=== PATIENT | male | born 1970 | race Two or more races ===

== ENCOUNTER 2017-03-23 02:21 | Emergency (ER) | payer MEDICAID ==
[~2017-03-23] VITALS: Ht 177.8 cm; Wt 63.5 kg
[~2017-03-23 02:21] MED LIST: SIMV-8 PO
[2017-03-23 03:14] VITALS: BP 119/48
[2017-06-08] MEDS ORDERED: NIC21P TOP (12:14)
[2017-06-08] MEDS ORDERED: INSLANTI SC (12:14)
[2017-06-08] MEDS ORDERED: ENOX80IN SC (12:14)
[2017-06-08] MEDS ORDERED: SIMV-13 PO (12:14)
[2017-06-08] MEDS ORDERED: HYDR2TAB58 PO (12:14)
[2017-06-08] MEDS ORDERED: CALC0.25 PO (12:14)
[2017-06-08] MEDS ORDERED: GABA-339 PO (12:14)
[2017-06-08] MEDS ORDERED: PROM25TA5 PO (12:14)
[2017-06-08] MEDS ORDERED: PANT40T PO (12:14)
[2017-06-08] MEDS ORDERED: FOLI1TAB6 PO (12:14)
[2017-06-08] MEDS ORDERED: GLIP-115 PO (12:14)
[2017-06-08] MEDS ORDERED: LORA1TAB12 PO (12:14)
[2017-06-08] MEDS ORDERED: INSLISPI SC (12:14)
[2017-06-08] MEDS ORDERED: POTA20TA53 PO (12:14)
[2017-06-08] MEDS ORDERED: MAGN400T5 PO (12:19)
[2017-06-08] MEDS ORDERED: VENL150C58 PO (12:19)
[2017-06-08] MEDS ORDERED: PANC3600 PO (12:19)
[2017-06-08] MEDS ORDERED: CALCCHW PO (12:19)
[2017-06-08] MEDS ORDERED: CLON1TAB3 PO (12:19)
== END 2017-03-23 07:52 | disposition left against medical advice (07) ==
LOC: ER 02:23
DX: R10.9 Unspecified abdominal pain (principal); Z53.21 Procedure and treatment not carried out due to patient leaving prior to being seen by health care provider
CPT/HCPCS: 74176

== ENCOUNTER 2017-07-23 07:58 | Emergency (ER) | payer MEDICAID ==
[~2017-07-23] VITALS: Ht 177.8 cm; Wt 70.3 kg
[~2017-07-23 07:58] MED LIST changes: +CALC0.25 PO; +CALCCHW PO; +CLON1TAB3 PO; +ENOX80IN SC; +FOLI1TAB6 PO; +GABA-339 PO; +GLIP-115 PO; +HYDR2TAB58 PO; +INSLANTI SC; +INSLISPI SC; +LORA1TAB12 PO; +MAGN400T5 PO; +NIC21P TOP; +PANC3600 PO; +PANT40T PO; +POTA20TA53 PO; +PROM25TA5 PO; +SIMV-13 PO; +VENL150C58 PO
[2017-07-23 08:42] LABS: Basophils # (auto) 0.1 uL; Basophils % (auto) 1.1 % (0.0-2.0); Eosinophils # (auto) 0.5 uL; Eosinophils % (auto) 5.3 % (0.0-7.0); Hemoglobin 12.9 g/dL (13.5-17.5); Lymphocytes # (auto) 2.2 uL; Lymphocytes % (auto) 24.8 % (10.0-50.0); Mean Corpuscular Hemoglobin 32.7 pg (28.0-32.0); Mean Corpuscular Volume 96.3 fL (80.0-100.0); Monocytes # (auto) 0.3 uL; Monocytes % (auto) 3.3 % (0.0-12.0); Neutrophils # (auto) 5.9 uL; Neutrophils % (auto) 65.5 % (37.0-80.0); Nucleated Red Blood Cells % 0.2 %; Platelet Count (auto) 189 10^3/uL (140-450); Red Blood Cells 3.95 10^6/uL (4.5-5.90); Red Cell Distribution Width 15.4 % (11.8-14.3)
[2017-07-23 10:19] LABS: Albumin 3.8 g/dL (3.4-5.0); BUN/Creatinine Ratio 27.6; Bilirubin, Total 0.4 mg/dL (0.2-1.0); Potassium 4.2 mmol/L (3.5-5.1); Total Protein 7.9 g/dL (6.4-8.2)
[2017-07-23] MEDS ORDERED: LORazepam 0.5 MG TAB PO ONE (10:30)
[2017-07-23 11:56] VITALS: BP 112/70
== END 2017-07-23 12:15 | disposition home or self-care (01) ==
LOC: ER 07:58 → EDBD 07:58 → ER 12:15
DX: R10.9 Unspecified abdominal pain (principal); F41.9 Anxiety disorder, unspecified; E11.9 Type 2 diabetes mellitus without complications; E78.5 Hyperlipidemia, unspecified; Z48.01 Encounter for change or removal of surgical wound dressing
CPT/HCPCS: 36415; 74018; 74176; 80053; 82150; 83690; 85025

== ENCOUNTER 2017-10-18 17:07 | Observation (INO) | payer MEDICAID ==
[~2017-10-18] VITALS: Ht 177.8 cm; Wt 74.4 kg
[~2017-10-18 17:07] MED LIST changes: -CLON1TAB3 PO; +CLON1TAB4 PO
[2017-10-18 18:23] LABS: Basophils # (auto) 0.1 uL; Basophils % (auto) 0.9 % (0.0-2.0); Eosinophils # (auto) 0.4 uL; Eosinophils % (auto) 5.5 % (0.0-7.0); Hematocrit 31.6 % (41.0-53.0); Hemoglobin 10.8 g/dL (13.5-17.5); Lymphocytes # (auto) 2.4 uL; Lymphocytes % (auto) 30.8 % (10.0-50.0); Mean Corpuscular Hemoglobin 30.5 pg (28.0-32.0); Mean Corpuscular Hgb Conc. 34.1 g/dL (32.0-36.0); Mean Corpuscular Volume 89.5 fL (80.0-100.0); Monocytes # (auto) 0.4 uL; Monocytes % (auto) 5.5 % (0.0-12.0); Neutrophils # (auto) 4.5 uL; Neutrophils % (auto) 57.3 % (37.0-80.0); Nucleated Red Blood Cells % 0.2 %; Platelet Count (auto) 196 10^3/uL (140-450); Red Blood Cells 3.54 10^6/uL (4.5-5.90); Red Cell Distribution Width 14.5 % (11.8-14.3); White Blood Cell 7.9 10^3/uL (4.4-10.8)
[2017-10-18 18:39] LABS: Albumin 3.4 g/dL (3.4-5.0); BUN/Creatinine Ratio 21.2; Calcium 8.7 mg/dL (8.5-10.1); Potassium 4.1 mmol/L (3.5-5.1)
[2017-10-18 18:42] LABS: Bilirubin, Total 0.4 mg/dL (0.2-1.0); Total Protein 7.1 g/dL (6.4-8.2)
[2017-10-18 19:56] LABS: Urine WBC None Seen /hpf (0 - 3)
[2017-10-18 20:17] LABS: Urine Bacteria NONE SEEN /hpf (None Seen); Urine Blood Negative /uL (Negative); Urine Mucus FEW (None Seen); Urine Specific Gravity 1.016 (1.001-1.035)
[2017-10-18] MEDS ORDERED: SODIUM CHLORIDE 0.9% 1,000 ML IV ONE (20:30)
[2017-10-18] MEDS ORDERED: PANTOPRAZOLE 40 MG/10 ML VIAL IV ONE (20:30)
[2017-10-18] MEDS ORDERED: clonazePAM 0.5 MG TAB PO ONE (20:30)
[2017-10-18 20:58] LABS: INR 1.02 (0.9-1.15); Partial Thromboplastin Time 33.1 sec (23.78-33.04); Prothrombin Time 10.9 sec (9.27-12.13)
[2017-10-18 21:11] LABS: Amylase 24 U/L (25-115); Lipase 42 U/L (73-393)
[2017-10-18 22:12] VITALS: BP 121/75
[2017-10-18 22:53] LABS: Alcohol, Urine < 3.0 mg/dL (0-5); Amphetamine Screen, Urine NEGATIVE (NEGATIVE); Barbiturate Scree,Urine NEGATIVE (NEGATIVE); Benzodiazephine Screen, Urine NEGATIVE (NEGATIVE); Cannabinoid Screen, Urine NEGATIVE (NEGATIVE); Cocaine Screen, Urine NEGATIVE (NEGATIVE); Opiate Scree,Urine NEGATIVE (NEGATIVE); Phencyclidine Screen, Urine NEGATIVE (NEGATIVE)
== END 2017-10-19 00:04 | disposition left against medical advice (07) | DRG 54 ==
LOC: ER 17:18 → OVERFLOW 17:19 → ER 10-19 00:04
PROVIDERS: ADMIT Emergency Medicine; ATTEND Emergency Medicine
DX: G43.A1 Cyclical vomiting, in migraine, intractable (principal); E11.9 Type 2 diabetes mellitus without complications; K29.00 Acute gastritis without bleeding; G89.29 Other chronic pain; N18.9 Chronic kidney disease, unspecified; M54.9 Dorsalgia, unspecified; Z93.3 Colostomy status; F41.9 Anxiety disorder, unspecified; Z79.899 Other long term (current) drug therapy
CPT/HCPCS: 36415; 74176; 80053; 80307; 80320; 81001; 82150; 83690; 85025; 85610; 85730; 93005; 96361; 96374; 99285; C9113; G0378; J7030

== ENCOUNTER 2018-01-01 14:38 | Observation (INO) | payer MEDICAID ==
[~2018-01-01] VITALS: Ht 177.8 cm; Wt 72.6 kg
[2018-01-01 15:23] LABS: Basophils # (auto) 0.1 uL; Basophils % (auto) 0.5 % (0.0-2.0); Eosinophils # (auto) 0.1 uL; Eosinophils % (auto) 1.1 % (0.0-7.0); Hematocrit 38.9 % (41.0-53.0); Lymphocytes # (auto) 3.1 uL; Lymphocytes % (auto) 26.1 % (10.0-50.0); Mean Corpuscular Hgb Conc. 33.4 g/dL (32.0-36.0); Mean Corpuscular Volume 89.8 fL (80.0-100.0); Monocytes # (auto) 0.5 uL; Monocytes % (auto) 4.3 % (0.0-12.0); Neutrophils # (auto) 8.1 uL; Platelet Count (auto) 318 10^3/uL (140-450); Red Blood Cells 4.33 10^6/uL (4.5-5.90); Red Cell Distribution Width 13.7 % (11.8-14.3)
[2018-01-01 15:37] LABS: Alanine Aminotransferase 21 U/L (16-61); Albumin 3.7 g/dL (3.4-5.0); Amylase 23 U/L (25-115); Anion Gap 4 (5-15); Aspartate Aminotransferase 26 U/L (15-37); BUN/Creatinine Ratio 14.4; Blood Urea Nitrogen 27 mg/dL (7-18); Calcium 9.6 mg/dL (8.5-10.1); Carbon Dioxide 28 mmol/L (21-32); Chloride 100 mmol/L (98-107); GFR African American 50 mL/min; GFR Non-African American 41 mL/min; Glucose 234 mg/dL (74-106); Lipase 61 U/L (73-393); Magnesium 2.2 mg/dL (1.6-2.6); Potassium 4.9 mmol/L (3.5-5.1); Sodium 132 mmol/L (136-145)
[2018-01-01 15:42] LABS: Alkaline Phosphatase 539 U/L (45-117); Bilirubin, Total 0.3 mg/dL (0.2-1.0); Total Protein 8.8 g/dL (6.4-8.2)
[2018-01-01] MEDS ORDERED: SODIUM CHLORIDE 0.9% 1,000 ML IV SCH (16:54)
[2018-01-01] MEDS ORDERED: NITROGLYCERIN 0.4 MG SL TAB SL PRN (17:00)
[2018-01-01] MEDS ORDERED: InsuLIN REG 1unit/0.01ml Soln (100units/ml) SC SCH (17:00)
[2018-01-01] MEDS ORDERED: PANTOPRAZOLE 40 MG/10 ML VIAL IV ONE (17:00)
[2018-01-01] MEDS ORDERED: cefTRIAXone 1GM/50ML D5W 50 ML IV ONE (17:00)
[2018-01-01] MEDS ORDERED: MORPHINE SULFATE 4 MG/ML SYR/VIAL IV PRN ×3 (17:00)
[2018-01-01] MEDS ORDERED: MAGNESIUM HYDROXIDE PO PRN (17:00)
[2018-01-01] MEDS ORDERED: TEMAZEPAM 15 MG CAP PO PRN (17:00)
[2018-01-01] MEDS ORDERED: ONDANSETRON HCL 4 MG/2 ML VIAL IV PRN (17:00)
[2018-01-01] MEDS ORDERED: CALCIUM CARBONATE PO PRN (17:00)
[2018-01-01] MEDS ORDERED: DEXTROSE (50%) 50ML SYRG IV PRN (17:00)
[2018-01-01] MEDS ORDERED: ACCU-CHEK COMFORT CURVE STRIP VI SCH (17:00)
[2018-01-01] MEDS ORDERED: clonazePAM 0.5 MG TAB PO SCH (17:29)
[2018-01-01 17:38] VITALS: BP 107/78
[2018-01-01] MEDS ORDERED: metroNIDAZOLE 500MG/100ML 100 ML IV SCH (18:00)
[2018-01-01] MEDS ORDERED: glipiZIDE 5 MG TAB PO SCH (18:00)
[2018-01-01] MEDS ORDERED: ATORVASTATIN 20 MG TAB PO SCH (22:00)
[2018-01-01] MEDS ORDERED: GABAPENTIN 300 MG CAP PO SCH (22:00)
[2018-01-02] MEDS ORDERED: cefTRIAXone 1GM/50ML D5W 50 ML IV SCH (09:00)
[2018-01-02] MEDS ORDERED: FOLIC ACID 1 MG TAB PO SCH (10:00)
[2018-01-02] MEDS ORDERED: PANTOPRAZOLE 40 MG TAB PO SCH (10:00)
[2018-01-02] MEDS ORDERED: PANCRELIPASE PO SCH (10:00)
[2018-01-02] MEDS ORDERED: VENLAFAXINE HCL 37.5mg XR cap PO SCH (10:00)
[2018-01-02] MEDS ORDERED: CALCITRIOL 0.25 MCG CAP PO SCH (10:00)
== END 2018-01-01 18:43 | disposition home or self-care (01) | DRG 251 ==
LOC: ER 14:38 → OVERFLOW 14:39 → ER 18:32
PROVIDERS: ADMIT Family Medicine; ATTEND Family Medicine
DX: R10.9 Unspecified abdominal pain (principal); E11.22 Type 2 diabetes mellitus with diabetic chronic kidney disease; I95.9 Hypotension, unspecified; K80.20 Calculus of gallbladder without cholecystitis without obstruction; N18.9 Chronic kidney disease, unspecified; E78.5 Hyperlipidemia, unspecified; E87.1 Hypo-osmolality and hyponatremia; F17.210 Nicotine dependence, cigarettes, uncomplicated
CPT/HCPCS: 36415; 71045; 74176; 80053; 82150; 83036; 83605; 83690; 83735; 84484; 85025; 85045; 87040; 99285; G0378

== ENCOUNTER 2018-03-14 14:46 | Emergency (ER) | payer MEDICAID ==
[~2018-03-14] VITALS: Ht 177.8 cm; Wt 72.6 kg
[2018-03-14 15:54] LABS: Basophils # (auto) 0.1 uL; Basophils % (auto) 0.9 % (0.0-2.0); Eosinophils # (auto) 0.1 uL; Eosinophils % (auto) 1.3 % (0.0-7.0); Hematocrit 36.1 % (41.0-53.0); Hemoglobin 12.1 g/dL (13.5-17.5); Lymphocytes # (auto) 3.2 uL; Lymphocytes % (auto) 37.8 % (10.0-50.0); Mean Corpuscular Hemoglobin 30.7 pg (28.0-32.0); Mean Corpuscular Hgb Conc. 33.6 g/dL (32.0-36.0); Mean Corpuscular Volume 91.5 fL (80.0-100.0); Monocytes # (auto) 0.3 uL; Neutrophils # (auto) 4.7 uL; Nucleated Red Blood Cells % 0.1 %; Platelet Count (auto) 209 10^3/uL (140-450); Red Blood Cells 3.95 10^6/uL (4.5-5.90); Red Cell Distribution Width 13.4 % (11.8-14.3); White Blood Cell 8.5 10^3/uL (4.4-10.8)
[2018-03-14 16:10] LABS: Albumin 3.8 g/dL (3.4-5.0); BUN/Creatinine Ratio 10.8; Calcium 8.5 mg/dL (8.5-10.1); Magnesium 1.2 mg/dL (1.6-2.6); Potassium 4.6 mmol/L (3.5-5.1)
[2018-03-14 16:13] LABS: Bilirubin, Total 0.5 mg/dL (0.2-1.0); Total Protein 7.8 g/dL (6.4-8.2)
[2018-03-14] MEDS ORDERED: OXYCODONE W/ ACETAMINOPHEN 5/325MG TABLET PO ONE (16:45)
[2018-03-14] MEDS: MAGNESIUM SULFATE 1GM/100ML 100 ML IV SCH ×2 (17:04→17:51)
[2018-03-14 17:17] VITALS: BP 104/67
== END 2018-03-14 18:03 | disposition home or self-care (01) ==
LOC: ER 14:48
DX: E83.42 Hypomagnesemia (principal); E11.22 Type 2 diabetes mellitus with diabetic chronic kidney disease; N18.9 Chronic kidney disease, unspecified; E78.5 Hyperlipidemia, unspecified; F17.210 Nicotine dependence, cigarettes, uncomplicated; Z79.4 Long term (current) use of insulin
CPT/HCPCS: 36415; 80053; 82962; 83735; 85025; 93005; 94761; 96365; 99284; J3475

== ENCOUNTER 2018-03-18 18:03 | Emergency (ER) | payer MEDICAID ==
[~2018-03-18] VITALS: Ht 177.8 cm; Wt 72.6 kg
[2018-03-18 18:52] LABS: Basophils # (auto) 0.1 uL; Basophils % (auto) 0.7 % (0.0-2.0); Eosinophils # (auto) 0.1 uL; Eosinophils % (auto) 1.4 % (0.0-7.0); Hematocrit 36.8 % (41.0-53.0); Hemoglobin 12.4 g/dL (13.5-17.5); Lymphocytes # (auto) 4.6 uL; Mean Corpuscular Hemoglobin 30.7 pg (28.0-32.0); Mean Corpuscular Hgb Conc. 33.7 g/dL (32.0-36.0); Mean Corpuscular Volume 90.9 fL (80.0-100.0); Monocytes # (auto) 0.4 uL; Monocytes % (auto) 3.8 % (0.0-12.0); Neutrophils # (auto) 4.8 uL; Neutrophils % (auto) 48.1 % (37.0-80.0); Nucleated Red Blood Cells % 0.1 %; Platelet Count (auto) 222 10^3/uL (140-450); Red Blood Cells 4.04 10^6/uL (4.5-5.90); Red Cell Distribution Width 13.7 % (11.8-14.3)
[2018-03-18 19:06] LABS: Albumin 3.8 g/dL (3.4-5.0); Potassium 4.3 mmol/L (3.5-5.1)
[2018-03-18 19:08] LABS: Bilirubin, Total 0.5 mg/dL (0.2-1.0); Total Protein 8.1 g/dL (6.4-8.2)
[2018-03-18 20:25] LABS: INR 1.06 (0.9-1.15)
[2018-03-19 00:06] VITALS: BP 99/60
== END 2018-03-19 00:28 | disposition home or self-care (01) ==
LOC: ER 18:10
DX: E87.5 Hyperkalemia (principal); N17.9 Acute kidney failure, unspecified; E11.22 Type 2 diabetes mellitus with diabetic chronic kidney disease; E11.65 Type 2 diabetes mellitus with hyperglycemia; N18.9 Chronic kidney disease, unspecified; E78.5 Hyperlipidemia, unspecified; F17.210 Nicotine dependence, cigarettes, uncomplicated; Z79.4 Long term (current) use of insulin; Z79.899 Other long term (current) drug therapy
CPT/HCPCS: 36415; 71045; 80053; 83880; 84484; 85025; 85379; 85610; 85730; 93005

== ENCOUNTER 2018-06-11 03:17 | Inpatient (IN) | payer MEDICAID ==
[~2018-06-11] VITALS: Ht 177.8 cm; Wt 69.4 kg
[2018-06-11] VITALS (11 sets, daily range): BP systolic 94–125; BP diastolic 48–69
[~2018-06-11 03:17] MED LIST changes: -CALCCHW PO; +CHOL20007 PO; +DIPH2.5T73 PO; -ENOX80IN SC; +FER325T PO; -FOLI1TAB6 PO; -GLIP-115 PO; -HYDR2TAB58 PO; +LOPE2CAP PO; -LORA1TAB12 PO; +MID10T PO; -NIC21P TOP; +OCTR100I PO; -PANT40T PO; -POTA20TA53 PO; -PROM25TA5 PO; -SIMV-13 PO; -SIMV-8 PO; -VENL150C58 PO
[2018-06-11] MEDS ORDERED: DEXTROSE (50%) 50ML SYRG IV ONE (03:45)
[2018-06-11 07:37] LABS: Basophils # (auto) 0.1 uL; Eosinophils # (auto) 0.2 uL; Eosinophils % (auto) 3.2 % (0.0-7.0); Hematocrit 34.1 % (41.0-53.0); Hemoglobin 11.2 g/dL (13.5-17.5); Lymphocytes # (auto) 1.3 uL; Lymphocytes % (auto) 19.6 % (10.0-50.0); Mean Corpuscular Hemoglobin 30.5 pg (28.0-32.0); Mean Corpuscular Volume 92.5 fL (80.0-100.0); Monocytes # (auto) 0.3 uL; Monocytes % (auto) 3.9 % (0.0-12.0); Neutrophils # (auto) 4.8 uL; Neutrophils % (auto) 72.3 % (37.0-80.0); Nucleated Red Blood Cells % 0.1 %; Platelet Count (auto) 214 10^3/uL (140-450); Red Blood Cells 3.68 10^6/uL (4.5-5.90); Red Cell Distribution Width 17.1 % (11.8-14.3); White Blood Cell 6.6 10^3/uL (4.4-10.8)
[2018-06-11 07:51] LABS: INR 1.02 (0.9-1.15); Partial Thromboplastin Time 31.5 sec (23.78-33.04); Prothrombin Time 10.9 sec (9.27-12.13)
[2018-06-11 07:59] LABS: Urine Amorphous Crystal FEW /hpf (None Seen); Urine Bacteria NONE SEEN /hpf (None Seen); Urine Blood Negative /uL (Negative); Urine Specific Gravity 1.019 (1.001-1.035); Urine WBC 1 /hpf (0 - 3)
[2018-06-11 08:02] LABS: Albumin 2.9 g/dL (3.4-5.0); Amylase 19 U/L (25-115); Anion Gap 5 (5-15); Calcium 9.1 mg/dL (8.5-10.1); Carbon Dioxide 30 mmol/L (21-32); Chloride 99 mmol/L (98-107); Glucose 233 mg/dL (74-106); Lipase 29 U/L (73-393); Magnesium 2.1 mg/dL (1.6-2.6); Sodium 134 mmol/L (136-145)
[2018-06-11 08:09] LABS: Alanine Aminotransferase 17 U/L (16-61); Alkaline Phosphatase 296 U/L (45-117); Aspartate Aminotransferase 44 U/L (15-37); BUN/Creatinine Ratio 12.3; Bilirubin, Total 1.2 mg/dL (0.2-1.0); Blood Urea Nitrogen 28 mg/dL (7-18); GFR African American 40 mL/min; GFR Non-African American 33 mL/min; Total Protein 7.4 g/dL (6.4-8.2)
[2018-06-11 08:18] LABS: Potassium 6.2 mmol/L (3.5-5.1)
[2018-06-11] MEDS ORDERED: GASTROGRAFIN 120 ML SOL ONE (08:25)
[2018-06-11] MEDS ORDERED: FUROSEMIDE 20 MG/2 ML VIAL IV ONE (10:30)
[2018-06-11] MEDS ORDERED: ALBUTEROL SULF 2.5 MG/0.5ML(0.5%) NEB SOLN NEB ONE (10:30)
[2018-06-11] MEDS ORDERED: CALCIUM CHL 100MG/ML 1,000 MG in D5W 5% 100 ML IV ONE (10:30)
[2018-06-11] MEDS ORDERED: SODIUM BICARBONATE 8.4 % INJ 50ML VIAL IV ONE (10:30)
[2018-06-11] MEDS ORDERED: HYDROmorphone HCL 2 MG/ML VL IV ONE (12:00)
[2018-06-11] MEDS ORDERED: PROMETHAZINE HCL 25 MG/ML 1ML IV ONE (12:00)
[2018-06-11] MEDS ORDERED: SODIUM CHLORIDE 0.9% 3,000 ML IV ONE ×2 (12:30→14:30)
[2018-06-11 13:20] LABS: Potassium 4.4 mmol/L (3.5-5.1)
[2018-06-11] MEDS ORDERED: DOPamine 1600MCG/ML D5W 250 ML IV ONE (13:23)
[2018-06-11 13:24] LABS: BUN/Creatinine Ratio 11.1
[2018-06-11] MEDS ORDERED: SODIUM CHLORIDE 0.9% 1,000 ML IV ONE ×2 (13:30→17:30)
[2018-06-11] MEDS: DOPamine 1600MCG/ML D5W 250 ML IV SCH (13:32)
[2018-06-11] MEDS ORDERED: ceFAZolin 1GM/50ML 50 ML IV ONE (13:57)
[2018-06-11] MEDS ORDERED: DEXTROSE (50%) 50ML SYRG IV PRN (14:00)
[2018-06-11] MEDS ORDERED: NITROGLYCERIN 0.4 MG SL TAB SL PRN (14:00)
[2018-06-11] MEDS ORDERED: SOD CHL 0.45% 1,000 ML IV SCH ×3 (14:00→18:30)
[2018-06-11] MEDS ORDERED: PANTOPRAZOLE 40 MG/10 ML VIAL IV ONE (14:00)
[2018-06-11] MEDS ORDERED: MORPHINE SULF INJ 2 MG/ML SYRINGE 1ML IV PRN (14:00)
[2018-06-11] MEDS ORDERED: NOREPINEPHRINE 8 MG/250ML KIT 250 ML IV SCH (14:27)
[2018-06-11] MEDS ORDERED: DOPamine 1600MCG/ML D5W 250 ML IV SCH (14:30)
[2018-06-11] MEDS: MIDODRINE HCL 10 MG TAB PO SCH ×2 (14:53→22:15)
[2018-06-11 15:34] LABS: Lactic Acid w/Reflex 2.3 mmol/L (0.4-2.0)
[2018-06-11] MEDS: SODIUM CHLORIDE 0.9% 1,000 ML IV SCH (16:55)
[2018-06-11] MEDS: NAFCILLIN SOD 2GM 12 GM in SODIUM CHLORIDE 0.9% 1,000 ML IV SCH (17:09)
[2018-06-11] MEDS: ACCU-CHEK COMFORT CURVE STRIP VI SCH ×2 (17:15→22:14)
[2018-06-11] MEDS: InsuLIN REG 1unit/0.01ml Soln (100units/ml) SC SCH ×2 (17:19→22:15)
--- NOTE | 2018-06-11 18:45 | NUR ---
PT RECEIVED FROM ER VIA POOJA. VITAL SIGNS WITHIN NORMAL LIMITS AT THIS TIME, SEE INTERVENTIONS FOR INITIAL ASSESSMENT. PT A/Ox4. WILL CONTINUE TO MONITOR PT.
--- NOTE | 2018-06-11 19:43 | NUR ---
REPORT GIVEN TO SENIOR STRATEGY ANALYST RN GLADIS, ENDORSED CARE OF PT.
--- NOTE | 2018-06-11 19:45 | NUR ---
REPORT RECEIVED, ASSUMED CARE.
[2018-06-12] VITALS (48 sets, daily range): BP systolic 81–162; BP diastolic 40–88
[2018-06-12] MEDS: HYDROmorphone HCL 2 MG/ML VL IV PRN ×5 (01:33→20:02)
--- NOTE | 2018-06-12 01:34 | NUR ---
PT ILEOSTOMY BAG LEAKED IN BED. Patient bathe/linen change Patient given complete bath. Skin integrity assessed for any changes. Linens changed. Patient repositioned for comfort.
[2018-06-12] MEDS: SODIUM CHLORIDE 0.9% 1,000 ML IV SCH (02:54)
--- NOTE | 2018-06-12 04:45 | NUR ---
PT C/O N/V, PAGED HOSPITALIST.
[2018-06-12 05:20] LABS: Basophils # (auto) 0 uL; Basophils % (auto) 0.7 % (0.0-2.0); Eosinophils # (auto) 0.1 uL; Eosinophils % (auto) 2.2 % (0.0-7.0); Hematocrit 32.2 % (41.0-53.0); Hemoglobin 10.9 g/dL (13.5-17.5); Lymphocytes # (auto) 1.8 uL; Lymphocytes % (auto) 27.4 % (10.0-50.0); Mean Corpuscular Hemoglobin 31.2 pg (28.0-32.0); Mean Corpuscular Hgb Conc. 33.8 g/dL (32.0-36.0); Mean Corpuscular Volume 92.3 fL (80.0-100.0); Monocytes # (auto) 0.3 uL; Monocytes % (auto) 3.9 % (0.0-12.0); Neutrophils # (auto) 4.4 uL; Neutrophils % (auto) 65.8 % (37.0-80.0); Platelet Count (auto) 192 10^3/uL (140-450); Red Blood Cells 3.49 10^6/uL (4.5-5.90); Red Cell Distribution Width 16.9 % (11.8-14.3); White Blood Cell 6.6 10^3/uL (4.4-10.8)
[2018-06-12] MEDS: ACCU-CHEK COMFORT CURVE STRIP VI SCH ×4 (05:21→22:00)
--- NOTE | 2018-06-12 05:22 | NUR ---
ACCU CHECK MACHINES NOT WORKING WILL TAKE BLOOD SUGAR FROM AM [facility].
[2018-06-12 05:38] LABS: Calcium 9.8 mg/dL (8.5-10.1); Potassium 4.6 mmol/L (3.5-5.1)
[2018-06-12 05:41] LABS: Albumin 2.9 g/dL (3.4-5.0); BUN/Creatinine Ratio 12.4
[2018-06-12 05:44] LABS: Bilirubin, Total 1.1 mg/dL (0.2-1.0); Total Protein 7.4 g/dL (6.4-8.2)
--- NOTE | 2018-06-12 05:44 | NUR ---
CALLBACK HOSPITALIST: OBTAINED NEW ORDERS.
[2018-06-12] MEDS ORDERED: ACETAMINOPHEN 325 MG TAB PO PRN (05:45)
[2018-06-12] MEDS ORDERED: ONDANSETRON HCL 4 MG/2 ML VIAL IV PRN (05:45)
[2018-06-12] MEDS: MIDODRINE HCL 10 MG TAB PO SCH ×3 (06:00→22:18)
[2018-06-12] MEDS: InsuLIN REG 1unit/0.01ml Soln (100units/ml) SC SCH ×4 (06:15→22:00)
--- NOTE | 2018-06-12 06:18 | NUR ---
MD GERONIMO HERE, NOTIFIED ME HE CAN'T SEE PT DUE TO INSURANCE AND CONSULT PAPER SHEETER CHELLE. Addendum: 06/12/18 at 0622 by Ponce Ramos RN WRONG PT
--- NOTE | 2018-06-12 06:35 | NUR ---
CALLED [facility], GAVE UPDATE ON AND REQUESTED FROM PT TO BRING XTRA CHANGE OF CLOTHING, ILEOSTOMY BAG AND SUPPLIES AND TAKE SOILED CLOTHING HOME.
--- NOTE | 2018-06-12 07:20 | NUR ---
OPEN. REPORT RECEIVED FROM COLOR STRIPPER RN GLADIS, ASSUMED CARE OF PT. VITAL SIGNS STABLE AT THIS TIME, SEE INTERVENTIONS FOR INITIAL ASSESSMENT. WILL CONTINUE TO MONITOR PT.
--- NOTE | 2018-06-12 08:00 | NUR ---
PT'S AT BEDSIDE. ALL QUESTIONS/CONCERNS ADDRESSED TO SATISFACTION.
[2018-06-12] MEDS ORDERED: NAFCILLIN SOD 2GM 12 GM in SODIUM CHLORIDE 0.9% 1,000 ML IV SCH (10:00)
[2018-06-12] MEDS ORDERED: PANCRELIPASE PO SCH ×2 (10:00→22:00)
[2018-06-12] MEDS ORDERED: PANTOPRAZOLE 40 MG/10 ML VIAL IV SCH (10:00)
[2018-06-12] MEDS ORDERED: SODIUM CHLORIDE 0.9% 1,000 ML IV ONE ×2 (10:15→11:00)
--- NOTE | 2018-06-12 10:38 | NUR ---
DR HUANG AT BEDSIDE, NEW ORDERS IN PLACE AT THIS TIME.
--- NOTE | 2018-06-12 11:14 | NUR ---
DR SMITH AT BEDSIDE, NEW ORDERS IN PLACE AT THIS TIME.
--- NOTE | 2018-06-12 11:16 | NUR ---
CALL RECEIVED FROM DR RODRÍGUEZ, PER MD, NO NEED FOR SURGICAL INTERVENTION AT THIS TIME.
--- NOTE | 2018-06-12 13:31 | NUR ---
NEW ORDERS IN PLACE FROM DR MALDONADO AT THIS TIME. TO REPLACE NS WITH LACTATED RINGERS, D/C DOPAMINE AND BEGIN LEVOPHED. LEVOPHED TO BE TITRATED TO MAINTAIN MAP > 90. LR STARTING RATE AT 150ML/HR UP TO 200ML/HR.
[2018-06-12] MEDS: NOREPINEPHRINE 8 MG/250ML KIT 250 ML IV SCH ×2 (13:32→18:52)
[2018-06-12] MEDS: LACTATED RINGER'S 1,000 ML IV SCH ×2 (14:00→20:25)
[2018-06-12] MEDS ORDERED: VENL150C58 PO (15:19)
[2018-06-12 18:49] LABS: Basophils # (auto) 0.1 uL; Basophils % (auto) 1.1 % (0.0-2.0); Eosinophils # (auto) 0.2 uL; Eosinophils % (auto) 3.6 % (0.0-7.0); Hematocrit 30.3 % (41.0-53.0); Lymphocytes # (auto) 1.7 uL; Mean Corpuscular Hemoglobin 30.5 pg (28.0-32.0); Mean Corpuscular Hgb Conc. 33.1 g/dL (32.0-36.0); Mean Corpuscular Volume 92.2 fL (80.0-100.0); Monocytes # (auto) 0.2 uL; Monocytes % (auto) 3.8 % (0.0-12.0); Neutrophils # (auto) 3.9 uL; Neutrophils % (auto) 63.5 % (37.0-80.0); Nucleated Red Blood Cells % 0.1 %; Platelet Count (auto) 169 10^3/uL (140-450); Red Blood Cells 3.28 10^6/uL (4.5-5.90); Red Cell Distribution Width 16.8 % (11.8-14.3); White Blood Cell 6.1 10^3/uL (4.4-10.8)
[2018-06-12 18:53] LABS: Albumin 2.6 g/dL (3.4-5.0); Bilirubin, Direct 0.3 mg/dL (0-0.2); Calcium 8.5 mg/dL (8.5-10.1); Potassium 4.5 mmol/L (3.5-5.1)
[2018-06-12] MEDS: PANCRELIPASE PO SCH (18:55)
[2018-06-12 18:56] LABS: BUN/Creatinine Ratio 11.5; Total Protein 6.5 g/dL (6.4-8.2)
[2018-06-12] MEDS: PANTOPRAZOLE 40 MG/10 ML VIAL IV SCH (22:06)
[2018-06-12] MEDS: NAFCILLIN SOD 2GM 12 GM in SODIUM CHLORIDE 0.9% 1,000 ML IV SCH (22:15)
[2018-06-13] VITALS (17 sets, daily range): BP systolic 91–154; BP diastolic 48–82
[2018-06-13] MEDS: HYDROmorphone HCL 2 MG/ML VL IV PRN ×3 (00:18→09:29)
[2018-06-13] MEDS: LACTATED RINGER'S 1,000 ML IV SCH (03:24)
[2018-06-13 04:19] LABS: Basophils # (auto) 0.1 uL; Basophils % (auto) 1.2 % (0.0-2.0); Eosinophils # (auto) 0.2 uL; Eosinophils % (auto) 3.4 % (0.0-7.0); Hematocrit 30.6 % (41.0-53.0); Hemoglobin 10.2 g/dL (13.5-17.5); Lymphocytes # (auto) 2.3 uL; Lymphocytes % (auto) 40.9 % (10.0-50.0); Mean Corpuscular Hemoglobin 30.6 pg (28.0-32.0); Mean Corpuscular Hgb Conc. 33.4 g/dL (32.0-36.0); Mean Corpuscular Volume 91.6 fL (80.0-100.0); Monocytes # (auto) 0.3 uL; Monocytes % (auto) 4.9 % (0.0-12.0); Neutrophils # (auto) 2.7 uL; Neutrophils % (auto) 49.6 % (37.0-80.0); Platelet Count (auto) 155 10^3/uL (140-450); Red Blood Cells 3.34 10^6/uL (4.5-5.90); Red Cell Distribution Width 17.2 % (11.8-14.3); White Blood Cell 5.5 10^3/uL (4.4-10.8)
[2018-06-13 04:40] LABS: Albumin 2.6 g/dL (3.4-5.0); Bilirubin, Direct 0.4 mg/dL (0-0.2); Calcium 8.6 mg/dL (8.5-10.1); Magnesium 1.2 mg/dL (1.6-2.6); Potassium 4.1 mmol/L (3.5-5.1)
[2018-06-13 04:43] LABS: BUN/Creatinine Ratio 12.8; Bilirubin, Total 1.2 mg/dL (0.2-1.0); Total Protein 6.3 g/dL (6.4-8.2)
[2018-06-13] MEDS: InsuLIN REG 1unit/0.01ml Soln (100units/ml) SC SCH (05:45)
[2018-06-13] MEDS: ACCU-CHEK COMFORT CURVE STRIP VI SCH (05:46)
[2018-06-13] MEDS: MIDODRINE HCL 10 MG TAB PO SCH (05:49)
--- NOTE | 2018-06-13 08:15 | NUR ---
OPENING NOTE Report received from Alexis, care has been endorsed. Initial assessment completed. Patient is in bed with at bedside. Patient vitals are stable and patient is A&Ox4. No complaints at this time. Will continue to monitor. Signed: 06/13/18 at 1124 by SN Isa <Co-Signature Required> Co-Signed: 06/13/18 at 1124 by Rhett Kellogg RN
--- NOTE | 2018-06-13 08:30 | NUR ---
PAGED; Dr. More paged regarding patient diet. Patient is requesting advancement of diet. Await return call.
[2018-06-13] MEDS: PANCRELIPASE PO SCH (09:28)
[2018-06-13] MEDS: PANTOPRAZOLE 40 MG/10 ML VIAL IV SCH (10:38)
--- NOTE | 2018-06-13 11:00 | NUR ---
MD FARRIS Patient would like to sign out Amaya BHATIA. Signed: 06/13/18 at 1103 by SN Isa <Co-Signature Required> Co-Signed: 06/13/18 at 1103 by Rhett Kellogg RN
--- NOTE | 2018-06-13 11:15 | NUR ---
AMA Note KELVIN CARRASCO states they want to leave the hospital Against Medical Advice (AMA). Patient encouraged to stay for further treatment/stabilization. Amaya Mckeon MD notified of patient's wishes. Patient advised of the risks and benefits of leaving AMA. Patient verbalized understanding. Patient encouraged to return to the ER if symptoms do not improve or worsen. Signed: 06/13/18 at 1125 by SN Isa <Co-Signature Required> Co-Signed: 06/13/18 at 1125 by Rhett Kellogg RN
== END 2018-06-13 11:45 | disposition left against medical advice (07) | DRG 193 ==
LOC: EDBD 03:17 → ER 03:22 → OVERFLOW 14:08 → ICU WEST 18:30
PROVIDERS: ADMIT Nurse Practitioner Acute Care; ATTEND Internal Medicine
DX: I33.0 Acute and subacute infective endocarditis (principal); I26.90 Septic pulmonary embolism without acute cor pulmonale; R57.1 Hypovolemic shock; K56.600 Partial intestinal obstruction, unspecified as to cause; N17.9 Acute kidney failure, unspecified; E44.0 Moderate protein-calorie malnutrition; E87.5 Hyperkalemia; E11.65 Type 2 diabetes mellitus with hyperglycemia; E11.21 Type 2 diabetes mellitus with diabetic nephropathy; D64.9 Anemia, unspecified; K86.1 Other chronic pancreatitis; E78.5 Hyperlipidemia, unspecified; Z53.21 Procedure and treatment not carried out due to patient leaving prior to being seen by health care provider; B95.61 Methicillin susceptible Staphylococcus aureus infection as the cause of diseases classified elsewhere; F32.9 Major depressive disorder, single episode, unspecified; F41.9 Anxiety disorder, unspecified; E11.40 Type 2 diabetes mellitus with diabetic neuropathy, unspecified; K21.9 Gastro-esophageal reflux disease without esophagitis; K43.9 Ventral hernia without obstruction or gangrene; Z93.3 Colostomy status; Z79.01 Long term (current) use of anticoagulants; Z79.4 Long term (current) use of insulin; Z68.22 Body mass index [BMI] 22.0-22.9, adult
CPT/HCPCS: 36415; 71045; 71250; 73080; 73562; 74176; 74250; 80048; 80053; 80076; 81001; 82150; 82962; 83036; 83605; 83690; 83735; 84484; 85025; 85610; 85730; 87040; 87045; 87081; 87899; 94644; 96361; 96365; 96375; 99291; A6257; C9113; G0378; J0690; J1815; J2405; J7060

== ENCOUNTER 2019-02-20 13:58 | Emergency (ER) | payer OTHER, MEDICAID ==
[~2019-02-20] VITALS: Ht 177.8 cm; Wt 68.0 kg
[~2019-02-20 13:58] MED LIST changes: +CLON1TAB10 PO; -CLON1TAB4 PO; +MAGN400T40 PO; -MAGN400T5 PO; +VENL150C58 PO
[2019-02-20] MEDS ORDERED: SODIUM CHLORIDE 0.9% 1,000 ML IVB ONE (14:33)
[2019-02-20] MEDS ORDERED: HYDROmorphone HCL 2 MG/ML VL IV ONE (14:45)
[2019-02-20] MEDS ORDERED: ONDANSETRON HCL 4 MG/2 ML VIAL IV ONE (14:45)
[2019-02-20 14:49] LABS: Basophils # (auto) 0.1 uL; Basophils % (auto) 0.8 % (0.0-2.0); Eosinophils # (auto) 0.2 uL; Eosinophils % (auto) 2.3 % (0.0-7.0); Hematocrit 35.1 % (41.0-53.0); Hemoglobin 11.8 g/dL (13.5-17.5); Lymphocytes # (auto) 2.8 uL; Lymphocytes % (auto) 34.8 % (10.0-50.0); Mean Corpuscular Hemoglobin 30.2 pg (28.0-32.0); Mean Corpuscular Hgb Conc. 33.5 g/dL (32.0-36.0); Mean Corpuscular Volume 90.3 fL (80.0-100.0); Monocytes # (auto) 0.5 uL; Monocytes % (auto) 6.2 % (0.0-12.0); Neutrophils # (auto) 4.5 uL; Neutrophils % (auto) 55.9 % (37.0-80.0); Nucleated Red Blood Cells % 0.2 %; Platelet Count (auto) 224 10^3/uL (140-450); Red Blood Cells 3.89 10^6/uL (4.5-5.90); Red Cell Distribution Width 14.6 % (11.8-14.3); White Blood Cell 8.1 10^3/uL (4.4-10.8)
[2019-02-20 15:01] LABS: INR 1.02 (0.9-1.15); Partial Thromboplastin Time 42.9 sec (23.64-32.05)
[2019-02-20 15:02] LABS: Magnesium 1.6 mg/dL (1.6-2.6)
[2019-02-20 15:05] LABS: Albumin 3.3 g/dL (3.4-5.0); BUN/Creatinine Ratio 13.7; Calcium 9.2 mg/dL (8.5-10.1)
[2019-02-20 15:13] LABS: Bilirubin, Total 1.4 mg/dL (0.2-1.0); Potassium 4.1 mmol/L (3.5-5.1); Total Protein 7.7 g/dL (6.4-8.2)
[2019-02-20 16:40] VITALS: BP 96/53
== END 2019-02-20 16:54 | disposition home or self-care (01) ==
LOC: ER 13:58
DX: G57.01 Lesion of sciatic nerve, right lower limb (principal); E86.0 Dehydration; E11.22 Type 2 diabetes mellitus with diabetic chronic kidney disease; N18.9 Chronic kidney disease, unspecified; E78.5 Hyperlipidemia, unspecified; F17.210 Nicotine dependence, cigarettes, uncomplicated; J45.909 Unspecified asthma, uncomplicated; Z88.1 Allergy status to other antibiotic agents; Z79.899 Other long term (current) drug therapy
CPT/HCPCS: 36415; 74176; 80053; 82962; 83690; 83735; 85025; 85610; 85730; 93005; 96361; 96374; 96375; 99284; J1170; J2405; J7030

== ENCOUNTER 2019-03-04 21:03 | Emergency (ER) | payer OTHER, MEDICAID ==
[~2019-03-04] VITALS: Ht 177.8 cm; Wt 68.0 kg
[2019-03-04 21:41] VITALS: BP 124/78
== END 2019-03-04 21:41 | disposition left against medical advice (07) ==
LOC: ER 21:03
DX: Z53.21 Procedure and treatment not carried out due to patient leaving prior to being seen by health care provider (principal)

== ENCOUNTER 2019-09-02 13:03 | Emergency (ER) | payer OTHER, MEDICAID ==
[~2019-09-02] VITALS: Ht 177.8 cm; Wt 72.6 kg
[2019-09-02 13:18] VITALS: BP 94/52
[2019-09-02 13:51] LABS: Basophils # (auto) 0.1 10 ^3/uL (0-0.2); Basophils % (auto) 0.7 % (0.0-2.0); Eosinophils # (auto) 0.2 10 ^3/uL (0-0.8); Eosinophils % (auto) 1.8 % (0.0-7.0); Hematocrit 37.2 % (41.0-53.0); Hemoglobin 12.4 g/dL (13.5-17.5); Lymphocytes # (auto) 3.1 10 ^3/uL (0.4-5.4); Lymphocytes % (auto) 36.8 % (10.0-50.0); Mean Corpuscular Hemoglobin 29.2 pg (28.0-32.0); Mean Corpuscular Hgb Conc. 33.3 g/dL (32.0-36.0); Mean Corpuscular Volume 87.6 fL (80.0-100.0); Monocytes # (auto) 0.5 10 ^3/uL (0-1.3); Monocytes % (auto) 6.1 % (0.0-12.0); Neutrophils # (auto) 4.5 10 ^3/uL (1.6-8.6); Neutrophils % (auto) 54.6 % (37.0-80.0); Nucleated Red Blood Cells % 0.1 %; Platelet Count (auto) 295 10^3/uL (140-450); Red Blood Cells 4.25 10^6/uL (4.5-5.90); White Blood Cell 8.3 10^3/uL (4.4-10.8)
[2019-09-02 14:06] LABS: INR 1.02 (0.9-1.15); Partial Thromboplastin Time 42.4 sec (23.64-32.05)
== END 2019-09-02 14:46 | disposition left against medical advice (07) ==
LOC: ER 13:03
DX: Z45.2 Encounter for adjustment and management of vascular access device (principal); Z53.21 Procedure and treatment not carried out due to patient leaving prior to being seen by health care provider
CPT/HCPCS: 36415; 85025; 85610; 85730

== ENCOUNTER 2020-05-17 19:44 | Inpatient (IN) | payer OTHER, MEDICAID ==
[~2020-05-17] VITALS: Ht 177.8 cm; Wt 74.5 kg
[2020-05-17] MEDS ORDERED: metroNIDAZOLE 500MG/100ML 100 ML IV ONE (21:00)
[2020-05-17] MEDS ORDERED: PIPERACILLIN-TAZO 4.5GM 100 ML IV ONE (21:00)
[2020-05-17] MEDS ORDERED: MORPHINE SULFATE 4 MG/ML SYR/VIAL IV ONE (21:15)
[2020-05-17 21:26] LABS: Basophils # (auto) 0.1 10 ^3/uL (0-0.2); Basophils % (auto) 0.5 % (0.0-2.0); Eosinophils # (auto) 0.2 10 ^3/uL (0-0.8); Eosinophils % (auto) 1.5 % (0.0-7.0); Hematocrit 30.3 % (41.0-53.0); Hemoglobin 10.5 g/dL (13.5-17.5); Lymphocytes # (auto) 2.1 10 ^3/uL (0.4-5.4); Lymphocytes % (auto) 16.2 % (10.0-50.0); Mean Corpuscular Hemoglobin 29.8 pg (28.0-32.0); Mean Corpuscular Hgb Conc. 34.6 g/dL (32.0-36.0); Mean Corpuscular Volume 86.2 fL (80.0-100.0); Monocytes # (auto) 0.8 10 ^3/uL (0-1.3); Neutrophils # (auto) 9.8 10 ^3/uL (1.6-8.6); Neutrophils % (auto) 75.8 % (37.0-80.0); Platelet Count (auto) 336 10^3/uL (140-450); Red Blood Cells 3.52 10^6/uL (4.5-5.90); Red Cell Distribution Width 15.2 % (11.8-14.3)
[2020-05-17 21:42] LABS: Albumin 2.9 g/dL (3.4-5.0); Calcium 8.5 mg/dL (8.5-10.1); Potassium 4.5 mmol/L (3.5-5.1)
[2020-05-17 21:45] LABS: BUN/Creatinine Ratio 18.8; Bilirubin, Total 0.9 mg/dL (0.2-1.0); Total Protein 7.9 g/dL (6.4-8.2)
[2020-05-17] MEDS ORDERED: SODIUM CHLORIDE 0.9% 1,000 ML IV ONE (22:15)
[2020-05-17 22:37] LABS: Urine Bacteria NONE SEEN /hpf (None Seen); Urine Blood Negative /uL (Negative); Urine Hyaline Cast FEW /lpf (0 - 2); Urine Specific Gravity 1.011 (1.001-1.035); Urine WBC <1 /hpf (0 - 3)
[2020-05-17] MEDS ORDERED: HYDROmorphone HCL 2 MG/ML VL IV ONE (23:45)
[2020-05-18] MEDS ORDERED: MORPHINE SULF INJ 2 MG/ML SYRINGE 1ML IV PRN (01:45)
[2020-05-18] MEDS ORDERED: MORPHINE SULFATE 4 MG/ML SYR/VIAL IV PRN (01:45)
[2020-05-18] MEDS ORDERED: SODIUM CHLORIDE 0.9% 1,000 ML IV SCH (01:45)
[2020-05-18] MEDS ORDERED: NITROGLYCERIN 0.4 MG SL TAB SL PRN (01:45)
[2020-05-18] MEDS ORDERED: DEXTROSE (50%) 50ML SYRG IV PRN (01:45)
[2020-05-18] MEDS ORDERED: ONDANSETRON HCL 4 MG/2 ML VIAL IV PRN (01:45)
[2020-05-18] MEDS: PIPERACILLIN-TAZOB 3.375GM 100 ML IV SCH ×4 (05:35→23:11)
[2020-05-18] MEDS ORDERED: ACETAMINOPHEN 325 MG TAB PO PRN (05:45)
[2020-05-18] MEDS: ACCU-CHEK COMFORT CURVE STRIP VI SCH ×4 (05:49→23:33)
[2020-05-18] MEDS: InsuLIN REG 1unit/0.01ml Soln (100units/ml) SC SCH ×4 (06:00→23:33)
[2020-05-18] MEDS: HYDROmorphone HCL 2 MG/ML VL IV PRN ×3 (06:05→22:49)
[2020-05-18] MEDS ORDERED: D5W/SOD CHLO 0.9% 1,000 ML IV SCH (06:45)
[2020-05-18 06:48] LABS: Basophils # (auto) 0.1 10 ^3/uL (0-0.2); Basophils % (auto) 0.6 % (0.0-2.0); Eosinophils # (auto) 0.2 10 ^3/uL (0-0.8); Eosinophils % (auto) 1.6 % (0.0-7.0); Hemoglobin 10.8 g/dL (13.5-17.5); Lymphocytes # (auto) 1.6 10 ^3/uL (0.4-5.4); Lymphocytes % (auto) 15.3 % (10.0-50.0); Mean Corpuscular Hemoglobin 29.5 pg (28.0-32.0); Mean Corpuscular Hgb Conc. 34.7 g/dL (32.0-36.0); Mean Corpuscular Volume 85.1 fL (80.0-100.0); Monocytes # (auto) 0.4 10 ^3/uL (0-1.3); Monocytes % (auto) 4.1 % (0.0-12.0); Neutrophils # (auto) 8.4 10 ^3/uL (1.6-8.6); Neutrophils % (auto) 78.4 % (37.0-80.0); Nucleated Red Blood Cells % 0.1 %; Platelet Count (auto) 327 10^3/uL (140-450); Red Blood Cells 3.65 10^6/uL (4.5-5.90); Red Cell Distribution Width 14.5 % (11.8-14.3); White Blood Cell 10.7 10^3/uL (4.4-10.8)
[2020-05-18] MEDS: D5W 5% 1,000 ML IV SCH ×2 (06:52→20:05)
[2020-05-18 07:06] LABS: Albumin 2.7 g/dL (3.4-5.0); Calcium 8.9 mg/dL (8.5-10.1); Potassium 3.7 mmol/L (3.5-5.1)
[2020-05-18 07:09] LABS: BUN/Creatinine Ratio 15.3; Bilirubin, Total 0.9 mg/dL (0.2-1.0); Total Protein 7.4 g/dL (6.4-8.2)
[2020-05-18] MEDS ORDERED: OCTR50IN IJ (15:36)
[2020-05-18] MEDS ORDERED: [UNRECOGNIZED DRUG - CODE] PO (15:36)
[2020-05-18] MEDS ORDERED: FERR-20 PO (15:36)
[2020-05-18] MEDS ORDERED: ENOX80IN8 SC (15:36)
[2020-05-18 17:00] VITALS: BP 114/72
[2020-05-18] MEDS ORDERED: clonazePAM 0.5 MG TAB PO PRN (18:30)
[2020-05-18 19:37] LABS: Magnesium 1.8 mg/dL (1.6-2.6)
[2020-05-18 19:42] LABS: Phosphorus 2.9 mg/dL (2.5-4.90); Pre Albumin 17.4 mg/dL (20.0-40.0)
[2020-05-18 21:00] VITALS: BP 109/59
[2020-05-18] MEDS ORDERED: AMINO ACID INFUSION IN D5W 2,000 ML IV NR (21:00)
[2020-05-18] MEDS: GABAPENTIN 300 MG CAP PO SCH (21:35)
[2020-05-18] MEDS: FERROUS SULFATE 325 MG TAB PO SCH (21:35)
[2020-05-18] MEDS: MAGNESIUM OXIDE 400 MG TAB PO SCH (21:36)
[2020-05-18] MEDS ORDERED: DEXTROSE (50%) 50ML SYRG IV SCH (22:00)
[2020-05-18] MEDS ORDERED: ENOXAPARIN SOD 80 MG/0.8ML SYRINGE SC SCH (22:00)
[2020-05-18] MEDS ORDERED: VENLAFAXINE HCL 37.5mg XR cap PO SCH (22:00)
[2020-05-18] MEDS ORDERED: INSULIN LANTUS (GLARGINE) 1 /0.01ml (100units/ml) SC SCH (22:00)
[2020-05-19 05:00] VITALS: BP 98/54
[2020-05-19] MEDS: PIPERACILLIN-TAZOB 3.375GM 100 ML IV SCH (05:15)
[2020-05-19] MEDS: HYDROmorphone HCL 2 MG/ML VL IV PRN (05:52)
[2020-05-19] MEDS: InsuLIN REG 1unit/0.01ml Soln (100units/ml) SC SCH (05:53)
[2020-05-19] MEDS: MAGNESIUM OXIDE 400 MG TAB PO SCH (05:54)
[2020-05-19] MEDS: FERROUS SULFATE 325 MG TAB PO SCH (05:54)
[2020-05-19] MEDS: GABAPENTIN 300 MG CAP PO SCH (05:54)
[2020-05-19] MEDS: ACCU-CHEK COMFORT CURVE STRIP VI SCH (05:54)
[2020-05-19 07:24] LABS: Albumin 2.7 g/dL (3.4-5.0); Calcium 9.3 mg/dL (8.5-10.1); Potassium 3.8 mmol/L (3.5-5.1)
[2020-05-19 07:41] LABS: BUN/Creatinine Ratio 12.7; Phosphorus 3.8 mg/dL (2.5-4.90)
[2020-05-19] MEDS ORDERED: TPN PER PHARMACY 0 ML IV SCH (08:00)
[2020-05-19] MEDS ORDERED: PANCRELIPASE PO SCH ×2 (08:00→12:00)
[2020-05-19 08:49] VITALS: BP 87/48
[2020-05-19] MEDS ORDERED: VENLAFAXINE HCL 37.5mg XR cap PO SCH (10:00)
[2020-05-19] MEDS ORDERED: OCTREOTIDE ACETATE SC SCH (10:00)
[2020-05-19] MEDS ORDERED: SODIUM CHLORIDE 0.9% 1,000 ML IV SCH (10:45)
[2020-05-19] MEDS ORDERED: TPN PER PHARMACY IV NR ×10 (20:00)
== END 2020-05-19 09:30 | disposition home health service (06) | DRG 445 ==
LOC: ER 19:45 → OVERFLOW 19:46 → CENTRAL 05-18 14:23
PROVIDERS: ADMIT Hospitalist; ATTEND Hospitalist
DX: K80.50 Calculus of bile duct without cholangitis or cholecystitis without obstruction (principal); N17.9 Acute kidney failure, unspecified; E44.0 Moderate protein-calorie malnutrition; E11.9 Type 2 diabetes mellitus without complications; F17.210 Nicotine dependence, cigarettes, uncomplicated; F32.9 Major depressive disorder, single episode, unspecified; F41.9 Anxiety disorder, unspecified; Z20.822 Contact with and (suspected) exposure to COVID-19; J45.909 Unspecified asthma, uncomplicated; Z82.49 Family history of ischemic heart disease and other diseases of the circulatory system; Z83.3 Family history of diabetes mellitus; Z93.3 Colostomy status; Z88.1 Allergy status to other antibiotic agents
CPT/HCPCS: 36415; 74176; 74181; 80053; 80061; 81001; 82040; 82150; 82962; 83605; 83690; 83735; 84100; 84478; 85025; 87040; 87426; 96365; 96367; 96375; G0378; J1815; J2405; J2543; J3490; J7042; J7131

== ENCOUNTER 2020-08-23 10:15 | Inpatient (IN) | payer OTHER, MEDICAID ==
[~2020-08-23] VITALS: Ht 180.3 cm; Wt 77.0 kg
[2020-08-23] VITALS (13 sets, daily range): BP systolic 105–125; BP diastolic 46–60
[~2020-08-23 10:15] MED LIST changes: -CALC0.25 PO; -CHOL20007 PO; -CLON1TAB10 PO; -DIPH2.5T73 PO; +ENOX80IN8 SC; -FER325T PO; +FERR-20 PO; -INSLISPI SC; -LOPE2CAP PO; -MID10T PO; -OCTR100I PO; +OCTR50IN IJ; -VENL150C58 PO; +[UNRECOGNIZED DRUG - CODE] PO
[2020-08-23] MEDS ORDERED: InsuLIN R (HUMAN) 100 UNITS in SODIUM CHL 0.9% 99 ML IV SCH (10:30)
[2020-08-23] MEDS ORDERED: DEXTROSE (50%) 50ML SYRG IV PRN (10:30)
[2020-08-23] MEDS: ACCU-CHEK COMFORT CURVE STRIP VI SCH ×9 (10:30→22:30)
[2020-08-23] MEDS ORDERED: cefTRIAXone 1GM/50ML D5W 50 ML IV ONE (10:30)
[2020-08-23] MEDS ORDERED: INSULIN LANTUS (GLARGINE) 1 /0.01ml (100units/ml) SC ONE (10:30)
[2020-08-23] MEDS: SODIUM CHLORIDE 0.9% 1,000 ML IV SCH ×2 (12:29→13:39)
[2020-08-23 13:21] LABS: Basophils # (auto) 0 10 ^3/uL (0-0.2); Basophils % (auto) 0.3 % (0.0-2.0); Eosinophils # (auto) 0 10 ^3/uL (0-0.8); Hematocrit 37.1 % (41.0-53.0); Hemoglobin 10.8 g/dL (13.5-17.5); Lymphocytes # (auto) 1.1 10 ^3/uL (0.4-5.4); Mean Corpuscular Hemoglobin 29.4 pg (28.0-32.0); Mean Corpuscular Hgb Conc. 29.2 g/dL (32.0-36.0); Mean Corpuscular Volume 100.7 fL (80.0-100.0); Monocytes # (auto) 0.6 10 ^3/uL (0-1.3); Monocytes % (auto) 5.1 % (0.0-12.0); Neutrophils # (auto) 10.1 10 ^3/uL (1.6-8.6); Neutrophils % (auto) 85.6 % (37.0-80.0); Platelet Count (auto) 271 10^3/uL (140-450); Red Blood Cells 3.68 10^6/uL (4.5-5.90); Red Cell Distribution Width 15.5 % (11.8-14.3); White Blood Cell 11.8 10^3/uL (4.4-10.8)
[2020-08-23 13:31] LABS: Calcium 8.9 mg/dL (8.5-10.1); Magnesium 3.9 mg/dL (1.6-2.6)
[2020-08-23 13:39] LABS: BUN/Creatinine Ratio 25.6; Phosphorus 7.5 mg/dL (2.5-4.90)
[2020-08-23 13:48] LABS: Potassium 7.1 mmol/L (3.5-5.1)
[2020-08-23] MEDS ORDERED: InsuLIN REG 1unit/0.01ml Soln (100units/ml) IV ONE (14:00)
[2020-08-23] MEDS ORDERED: DEXTROSE (50%) 50ML SYRG IV ONE (14:00)
[2020-08-23] MEDS ORDERED: ALBUTEROL SULF 2.5 MG/0.5ML(0.5%) NEB SOLN NEB ONE (14:00)
[2020-08-23] MEDS ORDERED: FUROSEMIDE 20 MG/2 ML VIAL IV ONE (14:00)
[2020-08-23] MEDS ORDERED: SODIUM ZIRCONIUM CYCL 10 GM PAK PO ONE (14:00)
[2020-08-23] MEDS ORDERED: SODIUM BICARBONATE 8.4% INJ 50ML SYRINGE IV ONE (14:00)
[2020-08-23] MEDS ORDERED: CALCIUM GLUC 1,000mg/50ml-NS 50 ML IV ONE (14:00)
[2020-08-23] MEDS ORDERED: SODIUM BICARBONATE 50ML VIAL 50 ML in SOD CHL 0.45% 1,000 ML IV SCH (14:15)
[2020-08-23] MEDS ORDERED: MORPHINE SULF INJ 2 MG/ML SYRINGE 1ML IV PRN (14:15)
[2020-08-23] MEDS ORDERED: NITROGLYCERIN 0.4 MG SL TAB SL PRN (14:15)
[2020-08-23] MEDS ORDERED: CATHFLO ACTIVASE (ALTEPLASE) 2 MG VIAL IV ONE (14:15)
[2020-08-23] MEDS ORDERED: SODIUM CHLORIDE 0.9% 1,000 ML IV SCH ×3 (14:30→21:45)
[2020-08-23 14:43] LABS: Urine Bacteria FEW /hpf (None Seen); Urine Blood 2+ /uL (Negative); Urine Mucus FEW (None Seen); Urine Specific Gravity 1.016 (1.001-1.035); Urine WBC <1 /hpf (0 - 3)
[2020-08-23] MEDS ORDERED: SODIUM BICARBONATE 8.4 % INJ 50ML VIAL IV ONE (14:45)
[2020-08-23] MEDS ORDERED: SODIUM BICARBONATE 50ML VIAL 150 ML in D5W 5% 1,000 ML IV ONE (14:45)
[2020-08-23] MEDS ORDERED: SODIUM BICARBONATE 50ML VIAL 100 ML in SOD CHL 0.45% 1,000 ML IV SCH (16:00)
[2020-08-23] MEDS: InsuLIN R (HUMAN) 100 UNITS in SODIUM CHL 0.9% 99 ML IV SCH (16:14)
[2020-08-23 18:57] LABS: Albumin 3.2 g/dL (3.4-5.0); Calcium 9.1 mg/dL (8.5-10.1); Potassium 3.5 mmol/L (3.5-5.1)
[2020-08-23 19:05] LABS: Bilirubin, Total 0.9 mg/dL (0.2-1.0)
[2020-08-23] MEDS: metroNIDAZOLE 500MG/100ML 100 ML IV SCH (21:22)
[2020-08-24] VITALS (35 sets, daily range): BP systolic 106–147; BP diastolic 47–85
[2020-08-24 00:56] LABS: BUN/Creatinine Ratio 27.3; Calcium 9.2 mg/dL (8.5-10.1)
[2020-08-24 01:24] LABS: Potassium 2.9 mmol/L (3.5-5.1)
[2020-08-24] MEDS: ACCU-CHEK COMFORT CURVE STRIP VI SCH ×8 (01:30→17:56)
[2020-08-24] MEDS: POTASSIUM CHL 20MEQ/100ML 100 ML IV SCH ×2 (02:37→04:24)
[2020-08-24] MEDS: InsuLIN R (HUMAN) 100 UNITS in SODIUM CHL 0.9% 99 ML IV SCH (04:29)
[2020-08-24] MEDS: metroNIDAZOLE 500MG/100ML 100 ML IV SCH (06:00)
[2020-08-24 06:34] LABS: Calcium 8.5 mg/dL (8.5-10.1); Potassium 3.1 mmol/L (3.5-5.1)
[2020-08-24 06:37] LABS: BUN/Creatinine Ratio 31.9
[2020-08-24] MEDS ORDERED: HYDR4TAB2 PO (08:10)
[2020-08-24] MEDS ORDERED: PERCOT PO (08:10)
[2020-08-24] MEDS ORDERED: METH10TA2 PO (08:10)
[2020-08-24] MEDS ORDERED: OXYCODONE W/ ACETAMINOPHEN 5/325MG TABLET PO PRN (08:45)
[2020-08-24] MEDS ORDERED: DEXTROSE (50%) 50ML SYRG IV PRN ×2 (08:45→11:30)
[2020-08-24] MEDS ORDERED: POTASSIUM CHL 20MEQ/100ML 100 ML IV ONE ×2 (08:45→09:30)
[2020-08-24] MEDS ORDERED: OXYCODONE W/ ACETAMINOPHEN 5/325MG TABLET PO SCH (09:15)
[2020-08-24] MEDS: SOD CHL 0.45% 1,000 ML IV SCH (09:57)
[2020-08-24] MEDS ORDERED: INSULIN LANTUS (GLARGINE) 1 /0.01ml (100units/ml) SC SCH (10:00)
[2020-08-24] MEDS ORDERED: PANTOPRAZOLE 40 MG/10 ML VIAL INJ IV SCH (10:00)
[2020-08-24 11:53] LABS: INR 1.11 (0.9-1.15); Partial Thromboplastin Time 26.9 sec (23.0-31.2)
[2020-08-24] MEDS ORDERED: ACCU-CHEK COMFORT CURVE STRIP VI SCH (12:00)
[2020-08-24] MEDS ORDERED: InsuLIN REG 1unit/0.01ml Soln (100units/ml) SC SCH (12:00)
[2020-08-24] MEDS: OXYCODONE W/ ACETAMINOPHEN 5/325MG TABLET PO SCH ×3 (12:14→23:37)
[2020-08-24] MEDS: InsuLIN REG 1unit/0.01ml Soln (100units/ml) SC SCH ×2 (12:14→17:56)
[2020-08-24] MEDS: PANCREATIC ENZYMES 4200 UNIT CAP PO SCH ×2 (12:28→17:55)
[2020-08-24 13:15] LABS: Alcohol, Urine < 3.0 mg/dL (0-10); Amphetamine Screen, Urine NEGATIVE (NEGATIVE); Barbiturate Scree,Urine NEGATIVE (NEGATIVE); Benzodiazephine Screen, Urine NEGATIVE (NEGATIVE); Cannabinoid Screen, Urine NEGATIVE (NEGATIVE); Cocaine Screen, Urine NEGATIVE (NEGATIVE); Opiate Scree,Urine NEGATIVE (NEGATIVE); Phencyclidine Screen, Urine NEGATIVE (NEGATIVE)
[2020-08-24] MEDS ORDERED: LIDOCAINE 1% (LOCAL ANESTH.) PF 5ml SDV ID ONE (15:30)
[2020-08-24] MEDS ORDERED: POTASSIUM PHOSPHATE 44 MEQ in D5W 5% 250 ML IV ONE (16:45)
[2020-08-24 18:22] LABS: Calcium 8.4 mg/dL (8.5-10.1)
[2020-08-24 18:24] LABS: BUN/Creatinine Ratio 31.3
[2020-08-24] MEDS ORDERED: SODIUM CHLOR 0.9% PF (SALINE LOCK) 10ML VIAL/SYR IV SCH (22:00)
[2020-08-25] MEDS: ACCU-CHEK COMFORT CURVE STRIP VI SCH ×4 (00:03→17:47)
[2020-08-25] MEDS: InsuLIN REG 1unit/0.01ml Soln (100units/ml) SC SCH ×4 (00:09→17:59)
[2020-08-25] MEDS: SOD CHL 0.45% 1,000 ML IV SCH ×3 (00:59→14:05)
[2020-08-25 05:00] VITALS: BP 143/67
[2020-08-25 05:44] LABS: Basophils # (auto) 0 10 ^3/uL (0-0.2); Basophils % (auto) 0.8 % (0.0-2.0); Eosinophils # (auto) 0.1 10 ^3/uL (0-0.8); Eosinophils % (auto) 1.2 % (0.0-7.0); Hematocrit 30.6 % (41.0-53.0); Hemoglobin 10.8 g/dL (13.5-17.5); Lymphocytes # (auto) 1.2 10 ^3/uL (0.4-5.4); Lymphocytes % (auto) 22.6 % (10.0-50.0); Mean Corpuscular Hemoglobin 30.3 pg (28.0-32.0); Mean Corpuscular Hgb Conc. 35.4 g/dL (32.0-36.0); Mean Corpuscular Volume 85.6 fL (80.0-100.0); Monocytes # (auto) 0.3 10 ^3/uL (0-1.3); Monocytes % (auto) 5.6 % (0.0-12.0); Neutrophils # (auto) 3.7 10 ^3/uL (1.6-8.6); Neutrophils % (auto) 69.8 % (37.0-80.0); Nucleated Red Blood Cells % 0.2 %; Platelet Count (auto) 179 10^3/uL (140-450); Red Blood Cells 3.57 10^6/uL (4.5-5.90); Red Cell Distribution Width 13.7 % (11.8-14.3); White Blood Cell 5.3 10^3/uL (4.4-10.8)
[2020-08-25 06:01] LABS: Albumin 2.5 g/dL (3.4-5.0); Calcium 8.3 mg/dL (8.5-10.1); Magnesium 1.6 mg/dL (1.6-2.6); Potassium 3.3 mmol/L (3.5-5.1)
[2020-08-25 06:06] LABS: BUN/Creatinine Ratio 26.1; Bilirubin, Total 0.8 mg/dL (0.2-1.0); Phosphorus 1.5 mg/dL (2.5-4.90); Total Protein 6.3 g/dL (6.4-8.2)
[2020-08-25] MEDS: OXYCODONE W/ ACETAMINOPHEN 5/325MG TABLET PO SCH ×3 (06:12→17:47)
[2020-08-25 08:00] VITALS: BP 159/78
[2020-08-25] MEDS: PANCREATIC ENZYMES 4200 UNIT CAP PO SCH ×3 (08:31→17:46)
[2020-08-25] MEDS: HYDROmorphone HCL 2 MG/ML VL IV PRN ×2 (08:32→17:19)
[2020-08-25] MEDS ORDERED: POTASSIUM PHOSPHATE 44 MEQ in D5W 5% 250 ML IV ONE (09:15)
[2020-08-25] MEDS ORDERED: VENLAFAXINE HCL 37.5mg XR cap PO SCH (10:00)
[2020-08-25] MEDS ORDERED: INSULIN LANTUS (GLARGINE) 1 /0.01ml (100units/ml) SC SCH (10:00)
[2020-08-25] MEDS ORDERED: VENLAFAXINE HCL 37.5MG TABLET PO SCH (10:00)
[2020-08-25 12:00] VITALS: BP 150/80
[2020-08-25 13:16] VITALS: BP 150/80
[2020-08-25 17:00] VITALS: BP 137/82
== END 2020-08-25 19:20 | disposition home health service (06) | DRG 637 ==
LOC: ER 10:15 → EDBD 10:15 → TELE 14:05 → ICU WEST 20:09 → TELE-CENTR 08-24 14:20
PROVIDERS: ADMIT Nurse Practitioner Acute Care; ATTEND Internal Medicine
PROC: 02HV33Z Insertion of Infusion Device into Superior Vena Cava, Percutaneous Approach (ICD-10-PCS; principal; 2020-08-23)
DX: E11.10 Type 2 diabetes mellitus with ketoacidosis without coma (principal); G93.41 Metabolic encephalopathy; N17.0 Acute kidney failure with tubular necrosis; E87.0 Hyperosmolality and hypernatremia; E87.5 Hyperkalemia; N18.32 Chronic kidney disease, stage 3b; K43.9 Ventral hernia without obstruction or gangrene; F15.10 Other stimulant abuse, uncomplicated; E86.0 Dehydration; E87.6 Hypokalemia; E11.22 Type 2 diabetes mellitus with diabetic chronic kidney disease; Z88.8 Allergy status to other drugs, medicaments and biological substances; Z93.3 Colostomy status
CPT/HCPCS: 36415; 36556; 36569; 36600; 70450; 71045; 74176; 80048; 80053; 80307; 80320; 81001; 82010; 82805; 82962; 83036; 83605; 83735; 83930; 84100; 85025; 85610; 85730; 87040; 87081; 87426; 93005; 93971; 94640; 96365; 96367; 99291; C9113; G0378; J0696; J1815; J3480; J3490; J7060

== ENCOUNTER 2020-11-11 15:01 | Inpatient (IN) | payer OTHER, MEDICAID ==
[~2020-11-11] VITALS: Ht 177.8 cm; Wt 75.0 kg
[~2020-11-11 15:01] MED LIST changes: +HYDR4TAB2 PO; +METH10TA2 PO; +PERCOT PO
[2020-11-11 15:51] LABS: Basophils # (auto) 0.1 10 ^3/uL (0-0.2); Basophils % (auto) 0.3 % (0.0-2.0); Eosinophils # (auto) 0.1 10 ^3/uL (0-0.8); Eosinophils % (auto) 0.7 % (0.0-7.0); Hematocrit 28.8 % (41.0-53.0); Hemoglobin 9.5 g/dL (13.5-17.5); Lymphocytes # (auto) 3.3 10 ^3/uL (0.4-5.4); Lymphocytes % (auto) 18.4 % (10.0-50.0); Mean Corpuscular Hemoglobin 27.9 pg (28.0-32.0); Mean Corpuscular Volume 84.7 fL (80.0-100.0); Monocytes # (auto) 0.5 10 ^3/uL (0-1.3); Monocytes % (auto) 2.7 % (0.0-12.0); Neutrophils # (auto) 14.1 10 ^3/uL (1.6-8.6); Neutrophils % (auto) 77.9 % (37.0-80.0); Red Cell Distribution Width 15.1 % (11.8-14.3)
[2020-11-11 16:14] LABS: Albumin 2.5 g/dL (3.4-5.0); Magnesium 1.9 mg/dL (1.6-2.6); Potassium 4.1 mmol/L (3.5-5.1)
[2020-11-11 16:29] LABS: BUN/Creatinine Ratio 12.6; Bilirubin, Total 0.5 mg/dL (0.2-1.0); Total Protein 7.3 g/dL (6.4-8.2)
[2020-11-11 16:45] LABS: INR 1.16 (0.9-1.15); Partial Thromboplastin Time 39.4 sec (23.6-33.0)
[2020-11-11] MEDS ORDERED: metroNIDAZOLE 500MG/100ML 100 ML IV ONE (18:15)
[2020-11-11] MEDS ORDERED: cefTRIAXone 1GM/50ML D5W 50 ML IV ONE (18:15)
[2020-11-11] MEDS ORDERED: SODIUM CHLORIDE 0.9% 1,000 ML IV ONE ×2 (18:30)
[2020-11-11 20:53] LABS: Urine Bacteria NONE SEEN /hpf (None Seen); Urine Blood Negative /uL (Negative); Urine Specific Gravity 1.014 (1.001-1.035); Urine WBC 1 /hpf (0 - 3)
[2020-11-11] MEDS ORDERED: DEXTROSE (50%) 50ML SYRG IV PRN (22:30)
[2020-11-11] MEDS ORDERED: NITROGLYCERIN 0.4 MG SL TAB SL PRN (22:30)
[2020-11-11] MEDS ORDERED: ACETAMINOPHEN 325 MG TAB PO PRN (22:30)
[2020-11-11] MEDS ORDERED: HYDROcodone-ACET 5/325MG TAB PO PRN (22:30)
[2020-11-11] MEDS ORDERED: MORPHINE SULFATE INJECTION 2 MG/ML SYRG IV PRN (22:30)
[2020-11-11] MEDS ORDERED: ONDANSETRON HCL 4 MG/2 ML VIAL IV PRN (22:30)
[2020-11-11] MEDS ORDERED: fentaNYL CITRATE 100 MCG/2 ML VL IV ONE (22:30)
[2020-11-11] MEDS ORDERED: SODIUM CHLORIDE 0.9% 1,000 ML IV SCH (22:30)
[2020-11-11] MEDS ORDERED: OCTREOTIDE ACETATE 500 MCG/ML VL ONE (22:44)
[2020-11-11] MEDS ORDERED: ALBUMIN 25% 50 ML IV ONE (22:45)
[2020-11-11] MEDS: OCTREOTIDE ACETATE 500 MCG in SODIUM CHL 0.9% 99 ML IV SCH (23:37)
[2020-11-12] VITALS (7 sets, daily range): BP systolic 102–146; BP diastolic 59–79
[2020-11-12] MEDS: MORPHINE SULFATE 4 MG/ML SYR/VIAL IV PRN ×4 (04:29→20:14)
[2020-11-12] MEDS ORDERED: INSU100I2 SC (04:36)
[2020-11-12] MEDS ORDERED: INSLANTI SC (04:36)
[2020-11-12] MEDS ORDERED: CLON-857 PO (04:44)
[2020-11-12] MEDS: InsuLIN REG 1unit/0.01ml Soln (100units/ml) SC SCH ×4 (06:33→21:58)
[2020-11-12] MEDS: ACCU-CHEK COMFORT CURVE STRIP VI SCH ×4 (06:33→21:59)
[2020-11-12] MEDS: metroNIDAZOLE 500MG/100ML 100 ML IV SCH ×3 (06:50→22:02)
[2020-11-12 08:18] LABS: Basophils # (auto) 0.1 10 ^3/uL (0-0.2); Basophils % (auto) 0.7 % (0.0-2.0); Eosinophils # (auto) 0.2 10 ^3/uL (0-0.8); Hematocrit 26.4 % (41.0-53.0); Hemoglobin 8.8 g/dL (13.5-17.5); Lymphocytes # (auto) 2.1 10 ^3/uL (0.4-5.4); Lymphocytes % (auto) 18.3 % (10.0-50.0); Mean Corpuscular Hemoglobin 28.3 pg (28.0-32.0); Mean Corpuscular Hgb Conc. 33.5 g/dL (32.0-36.0); Mean Corpuscular Volume 84.6 fL (80.0-100.0); Monocytes # (auto) 0.5 10 ^3/uL (0-1.3); Monocytes % (auto) 4.9 % (0.0-12.0); Neutrophils # (auto) 8.3 10 ^3/uL (1.6-8.6); Neutrophils % (auto) 74.1 % (37.0-80.0); Red Blood Cells 3.12 10^6/uL (4.5-5.90); Red Cell Distribution Width 14.9 % (11.8-14.3); White Blood Cell 11.2 10^3/uL (4.4-10.8)
[2020-11-12] MEDS: OCTREOTIDE ACETATE 500 MCG in SODIUM CHL 0.9% 99 ML IV SCH ×2 (08:30→19:03)
[2020-11-12 08:36] LABS: BUN/Creatinine Ratio 13.9; Calcium 7.8 mg/dL (8.5-10.1); Potassium 4.3 mmol/L (3.5-5.1)
[2020-11-12 08:51] LABS: Bilirubin, Total 0.4 mg/dL (0.2-1.0); Total Protein 6.1 g/dL (6.4-8.2)
[2020-11-12] MEDS: ASCORBIC ACID 500 MG TAB PO SCH ×2 (09:13→21:59)
[2020-11-12] MEDS: ZINC SULFATE 220mg CAP or TAB PO SCH (09:13)
[2020-11-12] MEDS: MULTIPLE VITAMIN TAB PO SCH (09:13)
[2020-11-12] MEDS: cefTRIAXone 1GM/50ML D5W 50 ML IV SCH (09:13)
[2020-11-12] MEDS: FAMOTIDINE (10MG/ML) 2ML VL IV SCH ×2 (09:13→21:59)
[2020-11-12 12:32] LABS: Amylase 16 U/L (25-115); Lipase < 10 U/L (73-393)
[2020-11-12] MEDS ORDERED: METHADONE HCL 10 MG TAB PO ONE (15:15)
[2020-11-12] MEDS: SODIUM CHLORIDE 0.9% 1,000 ML IV SCH (19:04)
[2020-11-12] MEDS: clonazePAM 0.5 MG TAB PO PRN (22:00)
[2020-11-13 05:00] VITALS: BP 107/65
[2020-11-13] MEDS: OCTREOTIDE ACETATE 500 MCG in SODIUM CHL 0.9% 99 ML IV SCH (05:23)
[2020-11-13] MEDS: metroNIDAZOLE 500MG/100ML 100 ML IV SCH ×3 (05:24→21:28)
[2020-11-13] MEDS: ACCU-CHEK COMFORT CURVE STRIP VI SCH ×4 (06:27→21:28)
[2020-11-13] MEDS: InsuLIN REG 1unit/0.01ml Soln (100units/ml) SC SCH ×4 (06:31→21:35)
[2020-11-13] MEDS: SODIUM CHLORIDE 0.9% 1,000 ML IV SCH ×2 (08:20→21:56)
[2020-11-13 09:00] VITALS: BP 114/55
[2020-11-13] MEDS: cefTRIAXone 1GM/50ML D5W 50 ML IV SCH (09:23)
[2020-11-13] MEDS: PANTOPRAZOLE 40 MG/10 ML VIAL INJ IV SCH ×2 (09:23→21:28)
[2020-11-13] MEDS: METHADONE HCL 10 MG TAB PO SCH (09:24)
[2020-11-13] MEDS: ASCORBIC ACID 500 MG TAB PO SCH ×2 (09:24→21:28)
[2020-11-13] MEDS: MULTIPLE VITAMIN TAB PO SCH (09:24)
[2020-11-13] MEDS: ZINC SULFATE 220mg CAP or TAB PO SCH (09:24)
[2020-11-13 10:38] LABS: Basophils # (auto) 0.1 10 ^3/uL (0-0.2); Basophils % (auto) 1.1 % (0.0-2.0); Eosinophils # (auto) 0.2 10 ^3/uL (0-0.8); Eosinophils % (auto) 1.2 % (0.0-7.0); Hematocrit 28.2 % (41.0-53.0); Hemoglobin 9.3 g/dL (13.5-17.5); Lymphocytes # (auto) 2.6 10 ^3/uL (0.4-5.4); Lymphocytes % (auto) 20.3 % (10.0-50.0); Mean Corpuscular Hemoglobin 27.7 pg (28.0-32.0); Monocytes # (auto) 0.6 10 ^3/uL (0-1.3); Neutrophils # (auto) 9.3 10 ^3/uL (1.6-8.6); Neutrophils % (auto) 72.4 % (37.0-80.0); Red Blood Cells 3.36 10^6/uL (4.5-5.90); Red Cell Distribution Width 14.9 % (11.8-14.3); White Blood Cell 12.8 10^3/uL (4.4-10.8)
[2020-11-13] MEDS: MORPHINE SULFATE 4 MG/ML SYR/VIAL IV PRN ×2 (12:51→21:29)
[2020-11-13 13:00] VITALS: BP 91/50
[2020-11-13 17:00] VITALS: BP 117/66
[2020-11-13] MEDS ORDERED: INSULIN LANTUS (GLARGINE) 1 /0.01ml (100units/ml) SC ONE (17:00)
[2020-11-13 22:00] VITALS: BP 109/64
[2020-11-13] MEDS ORDERED: INSULIN LANTUS (GLARGINE) 1 /0.01ml (100units/ml) SC SCH (22:00)
[2020-11-13] MEDS: clonazePAM 0.5 MG TAB PO PRN (22:00)
[2020-11-14 05:00] VITALS: BP 130/71
[2020-11-14 05:22] LABS: Basophils # (auto) 0.1 10 ^3/uL (0-0.2); Basophils % (auto) 1.1 % (0.0-2.0); Eosinophils # (auto) 0.2 10 ^3/uL (0-0.8); Eosinophils % (auto) 1.9 % (0.0-7.0); Hematocrit 26.1 % (41.0-53.0); Hemoglobin 8.8 g/dL (13.5-17.5); Lymphocytes # (auto) 2.9 10 ^3/uL (0.4-5.4); Lymphocytes % (auto) 28.3 % (10.0-50.0); Mean Corpuscular Hemoglobin 28.4 pg (28.0-32.0); Mean Corpuscular Hgb Conc. 33.8 g/dL (32.0-36.0); Mean Corpuscular Volume 84.1 fL (80.0-100.0); Monocytes # (auto) 0.6 10 ^3/uL (0-1.3); Monocytes % (auto) 5.3 % (0.0-12.0); Neutrophils # (auto) 6.5 10 ^3/uL (1.6-8.6); Neutrophils % (auto) 63.4 % (37.0-80.0); Nucleated Red Blood Cells % 0.1 %; Red Blood Cells 3.11 10^6/uL (4.5-5.90); Red Cell Distribution Width 15.1 % (11.8-14.3); White Blood Cell 10.3 10^3/uL (4.4-10.8)
[2020-11-14] MEDS: metroNIDAZOLE 500MG/100ML 100 ML IV SCH (05:23)
[2020-11-14 05:50] LABS: Calcium 8.4 mg/dL (8.5-10.1); Potassium 4.3 mmol/L (3.5-5.1)
[2020-11-14 05:53] LABS: BUN/Creatinine Ratio 10.3
[2020-11-14] MEDS: ACCU-CHEK COMFORT CURVE STRIP VI SCH (06:12)
[2020-11-14] MEDS: InsuLIN REG 1unit/0.01ml Soln (100units/ml) SC SCH (06:12)
[2020-11-14 09:00] VITALS: BP 135/82
[2020-11-14] MEDS: PANTOPRAZOLE 40 MG/10 ML VIAL INJ IV SCH (09:55)
[2020-11-14] MEDS: ASCORBIC ACID 500 MG TAB PO SCH (09:55)
[2020-11-14] MEDS: ZINC SULFATE 220mg CAP or TAB PO SCH (09:55)
[2020-11-14] MEDS: MULTIPLE VITAMIN TAB PO SCH (09:55)
[2020-11-14] MEDS: cefTRIAXone 1GM/50ML D5W 50 ML IV SCH (09:56)
[2020-11-14] MEDS: METHADONE HCL 10 MG TAB PO SCH (09:56)
== END 2020-11-14 12:18 | disposition left against medical advice (07) | DRG 444 ==
LOC: ER 15:01 → TELE 22:16 → TELE-WESTW 11-12 03:59
PROVIDERS: ADMIT Nurse Practitioner Family; ATTEND Nurse Practitioner Family
DX: K80.71 Calculus of gallbladder and bile duct without cholecystitis with obstruction (principal); E43 Unspecified severe protein-calorie malnutrition; E87.1 Hypo-osmolality and hyponatremia; N17.9 Acute kidney failure, unspecified; K56.600 Partial intestinal obstruction, unspecified as to cause; D50.0 Iron deficiency anemia secondary to blood loss (chronic); E11.22 Type 2 diabetes mellitus with diabetic chronic kidney disease; E11.649 Type 2 diabetes mellitus with hypoglycemia without coma; E11.65 Type 2 diabetes mellitus with hyperglycemia; I12.9 Hypertensive chronic kidney disease with stage 1 through stage 4 chronic kidney disease, or unspecified chronic kidney disease; Z53.29 Procedure and treatment not carried out because of patient's decision for other reasons; F17.210 Nicotine dependence, cigarettes, uncomplicated; F11.10 Opioid abuse, uncomplicated; J45.909 Unspecified asthma, uncomplicated; Z20.822 Contact with and (suspected) exposure to COVID-19; N18.9 Chronic kidney disease, unspecified; Z79.4 Long term (current) use of insulin; Z93.3 Colostomy status; Z68.23 Body mass index [BMI] 23.0-23.9, adult; Z88.1 Allergy status to other antibiotic agents; Z83.3 Family history of diabetes mellitus; Z80.1 Family history of malignant neoplasm of trachea, bronchus and lung
CPT/HCPCS: 36415; 74176; 74181; 80048; 80053; 81001; 82150; 82962; 83036; 83605; 83690; 83735; 85025; 85610; 85730; 86850; 86900; 86901; 87040; 87045; 87081; 87426; 87427; 87493; 96365; 96366; 96367; 96368; 96375; C9113; G0378; J0696; J1815; J2405; J3490

== ENCOUNTER 2020-12-16 14:08 | Inpatient (IN) | payer OTHER, MEDICAID ==
[~2020-12-16] VITALS: Ht 167.6 cm; Wt 74.4 kg
[~2020-12-16 14:08] MED LIST changes: +CLON-857 PO; +INSU100I2 SC
[2020-12-16 16:24] LABS: Basophils # (auto) 0 10 ^3/uL (0-0.2); Basophils % (auto) 0.2 % (0.0-2.0); Eosinophils # (auto) 0.1 10 ^3/uL (0-0.8); Eosinophils % (auto) 0.4 % (0.0-7.0); Hematocrit 28.3 % (41.0-53.0); Hemoglobin 9.5 g/dL (13.5-17.5); Lymphocytes # (auto) 1.9 10 ^3/uL (0.4-5.4); Mean Corpuscular Hemoglobin 27.3 pg (28.0-32.0); Mean Corpuscular Hgb Conc. 33.5 g/dL (32.0-36.0); Mean Corpuscular Volume 81.4 fL (80.0-100.0); Monocytes # (auto) 0.4 10 ^3/uL (0-1.3); Monocytes % (auto) 2.1 % (0.0-12.0); Neutrophils # (auto) 16.3 10 ^3/uL (1.6-8.6); Neutrophils % (auto) 87.3 % (37.0-80.0); Red Blood Cells 3.47 10^6/uL (4.5-5.90); Red Cell Distribution Width 15.6 % (11.8-14.3); White Blood Cell 18.7 10^3/uL (4.4-10.8)
[2020-12-16 16:55] LABS: Albumin 2.2 g/dL (3.4-5.0); Calcium 8.4 mg/dL (8.5-10.1); Magnesium 1.7 mg/dL (1.6-2.6); Potassium 4.5 mmol/L (3.5-5.1)
[2020-12-16 16:58] LABS: Bilirubin, Total 0.4 mg/dL (0.2-1.0)
[2020-12-16 21:07] LABS: Alcohol, Urine < 3.0 mg/dL (0-10); Amphetamine Screen, Urine NEGATIVE (NEGATIVE); Barbiturate Scree,Urine NEGATIVE (NEGATIVE); Benzodiazephine Screen, Urine NEGATIVE (NEGATIVE); Cannabinoid Screen, Urine NEGATIVE (NEGATIVE); Cocaine Screen, Urine NEGATIVE (NEGATIVE); Opiate Scree,Urine NEGATIVE (NEGATIVE); Phencyclidine Screen, Urine NEGATIVE (NEGATIVE)
[2020-12-16] MEDS ORDERED: DOCUSATE SOD 100 MG CAP PO PRN (22:45)
[2020-12-16] MEDS ORDERED: ACETAMINOPHEN 325 MG TAB PO PRN (22:45)
[2020-12-16] MEDS ORDERED: DEXTROSE (50%) 50ML SYRG IV PRN (22:45)
[2020-12-16] MEDS ORDERED: cefTRIAXone 1GM/50ML D5W 50 ML IV ONE (23:00)
[2020-12-17] MEDS ORDERED: NITROGLYCERIN 0.4 MG SL TAB SL PRN
[2020-12-17] MEDS: MORPHINE SULFATE INJECTION 2 MG/ML SYRG IV PRN ×4 (01:54→18:35)
[2020-12-17] MEDS: ONDANSETRON HCL 4 MG/2 ML VIAL IV PRN ×2 (01:55→12:08)
[2020-12-17] MEDS: SODIUM CHLORIDE 0.9% 1,000 ML IV SCH ×5 (02:15→21:00)
[2020-12-17] MEDS: ACCU-CHEK COMFORT CURVE STRIP VI SCH ×4 (07:00→21:33)
[2020-12-17] MEDS: InsuLIN REG 1unit/0.01ml Soln (100units/ml) SC SCH ×4 (07:04→21:36)
[2020-12-17 07:31] LABS: Basophils # (auto) 0.1 10 ^3/uL (0-0.2); Basophils % (auto) 0.7 % (0.0-2.0); Eosinophils # (auto) 0.1 10 ^3/uL (0-0.8); Eosinophils % (auto) 0.6 % (0.0-7.0); Hematocrit 30.8 % (41.0-53.0); Hemoglobin 10.1 g/dL (13.5-17.5); Lymphocytes # (auto) 2.3 10 ^3/uL (0.4-5.4); Lymphocytes % (auto) 16.6 % (10.0-50.0); Mean Corpuscular Hemoglobin 27.4 pg (28.0-32.0); Mean Corpuscular Hgb Conc. 32.9 g/dL (32.0-36.0); Mean Corpuscular Volume 83.4 fL (80.0-100.0); Monocytes # (auto) 0.6 10 ^3/uL (0-1.3); Monocytes % (auto) 4.1 % (0.0-12.0); Neutrophils # (auto) 10.8 10 ^3/uL (1.6-8.6); Red Blood Cells 3.69 10^6/uL (4.5-5.90); Red Cell Distribution Width 15.4 % (11.8-14.3); White Blood Cell 13.9 10^3/uL (4.4-10.8)
[2020-12-17 07:34] LABS: Albumin 2.2 g/dL (3.4-5.0); Calcium 8.8 mg/dL (8.5-10.1)
[2020-12-17 07:38] LABS: BUN/Creatinine Ratio 9.2; Bilirubin, Total 0.4 mg/dL (0.2-1.0); Total Protein 7.3 g/dL (6.4-8.2)
[2020-12-17] MEDS: SODIUM CHLOR 0.9% PF (SALINE LOCK) 10ML VIAL/SYR IV SCH ×3 (08:15→21:24)
[2020-12-17] MEDS: cefTRIAXone 1GM/50ML D5W 50 ML IV SCH (08:36)
[2020-12-17] MEDS: FAMOTIDINE (10MG/ML) 2ML VL IV SCH (10:55)
[2020-12-17] MEDS: MULTIPLE VITAMIN TAB PO SCH (10:55)
[2020-12-17] MEDS: ZINC SULFATE 220mg CAP or TAB PO SCH (10:55)
[2020-12-17] MEDS: ASCORBIC ACID 500 MG TAB PO SCH ×2 (10:55→21:24)
[2020-12-17] MEDS ORDERED: AZITHROMYCIN 500MG/ 250ML 250 ML IV ONE (11:00)
[2020-12-17] MEDS ORDERED: ALBUTEROL SULF 2.5 MG/0.5ML(0.5%) NEB SOLN NEB PRN (11:00)
[2020-12-17] MEDS: HEPARIN SODIUM (PORCINE) 5000 UNITS/ML 1ML VIAL SC SCH ×2 (11:01→21:24)
[2020-12-17] MEDS ORDERED: LORazepam 2MG/ML-1ML VIAL IV PRN ×2 (12:00)
[2020-12-17 12:32] LABS: Urine Bacteria NONE SEEN /hpf (None Seen); Urine Blood Negative /uL (Negative); Urine Specific Gravity 1.011 (1.001-1.035); Urine WBC <1 /hpf (0 - 3)
[2020-12-17] MEDS: METHADONE HCL 10 MG TAB PO SCH (15:03)
[2020-12-17 16:15] VITALS: BP 110/76
[2020-12-17 17:00] VITALS: BP 110/76
[2020-12-17] MEDS ORDERED: LOPE2CAP PO (18:18)
[2020-12-17 20:09] VITALS: BP 110/76
[2020-12-17] MEDS: LORazepam 2MG/ML-1ML VIAL IV PRN (21:26)
[2020-12-17 22:00] VITALS: BP 102/51
[2020-12-18 05:00] VITALS: BP 118/53
[2020-12-18] MEDS: SODIUM CHLOR 0.9% PF (SALINE LOCK) 10ML VIAL/SYR IV SCH ×3 (06:00→22:08)
[2020-12-18] MEDS: ACCU-CHEK COMFORT CURVE STRIP VI SCH ×4 (06:33→22:08)
[2020-12-18] MEDS: InsuLIN REG 1unit/0.01ml Soln (100units/ml) SC SCH ×4 (06:36→21:57)
[2020-12-18] MEDS: SODIUM CHLORIDE 0.9% 1,000 ML IV SCH ×2 (07:00→15:37)
[2020-12-18 07:07] LABS: Albumin 2.2 g/dL (3.4-5.0); Calcium 8.6 mg/dL (8.5-10.1); Potassium 5.5 mmol/L (3.5-5.1)
[2020-12-18 07:24] LABS: Basophils # (auto) 0.1 10 ^3/uL (0-0.2); Basophils % (auto) 1.1 % (0.0-2.0); Eosinophils # (auto) 0.1 10 ^3/uL (0-0.8); Eosinophils % (auto) 1.2 % (0.0-7.0); Hematocrit 30.5 % (41.0-53.0); Hemoglobin 10.1 g/dL (13.5-17.5); Lymphocytes # (auto) 2.9 10 ^3/uL (0.4-5.4); Lymphocytes % (auto) 27.1 % (10.0-50.0); Mean Corpuscular Hemoglobin 27.2 pg (28.0-32.0); Mean Corpuscular Volume 82.3 fL (80.0-100.0); Monocytes # (auto) 0.6 10 ^3/uL (0-1.3); Monocytes % (auto) 5.4 % (0.0-12.0); Neutrophils # (auto) 6.9 10 ^3/uL (1.6-8.6); Neutrophils % (auto) 65.2 % (37.0-80.0); Nucleated Red Blood Cells % 0.1 %; Red Cell Distribution Width 15.5 % (11.8-14.3); White Blood Cell 10.5 10^3/uL (4.4-10.8)
[2020-12-18 07:25] LABS: BUN/Creatinine Ratio 10.9; Bilirubin, Total 0.4 mg/dL (0.2-1.0)
[2020-12-18] MEDS: cefTRIAXone 1GM/50ML D5W 50 ML IV SCH (08:59)
[2020-12-18] MEDS: FAMOTIDINE (10MG/ML) 2ML VL IV SCH (08:59)
[2020-12-18 09:00] VITALS: BP 135/73
[2020-12-18] MEDS: ZINC SULFATE 220mg CAP or TAB PO SCH (09:00)
[2020-12-18] MEDS: METHADONE HCL 10 MG TAB PO SCH ×2 (09:00→10:00)
[2020-12-18] MEDS: MULTIPLE VITAMIN TAB PO SCH (09:01)
[2020-12-18] MEDS: ASCORBIC ACID 500 MG TAB PO SCH ×2 (09:01→21:55)
[2020-12-18] MEDS: HEPARIN SODIUM (PORCINE) 5000 UNITS/ML 1ML VIAL SC SCH ×2 (09:02→21:56)
[2020-12-18] MEDS: MORPHINE SULFATE INJECTION 2 MG/ML SYRG IV PRN ×2 (09:24→16:13)
[2020-12-18] MEDS ORDERED: AZITHROMYCIN 500MG/ 250ML 250 ML IV SCH (10:00)
[2020-12-18] MEDS ORDERED: InsuLIN REG 1unit/0.01ml Soln (100units/ml) IV ONE (11:30)
[2020-12-18] MEDS: FUROSEMIDE 20 MG/2 ML VIAL IV ONE ×2 (11:30→12:12)
[2020-12-18] MEDS: SODIUM ZIRCONIUM CYCL 10 GM PAK PO ONE ×2 (12:11→13:08)
[2020-12-18] MEDS: SODIUM BICARBONATE 8.4% INJ 50ML SYRINGE IV ONE ×2 (12:12→13:08)
[2020-12-18] MEDS: DEXTROSE (50%) 50ML SYRG IV ONE ×2 (12:12→13:08)
[2020-12-18 13:00] VITALS: BP 92/50
[2020-12-18 16:29] LABS: Calcium 8.6 mg/dL (8.5-10.1); Potassium 3.6 mmol/L (3.5-5.1)
[2020-12-18 16:53] VITALS: BP 114/67
[2020-12-18] MEDS: LORazepam 2MG/ML-1ML VIAL IV PRN (17:07)
[2020-12-18 22:00] VITALS: BP 98/72
[2020-12-18] MEDS: HYDROcodone-ACET 5/325MG TAB PO PRN (23:56)
[2020-12-19] MEDS: SODIUM CHLORIDE 0.9% 1,000 ML IV SCH ×3 (03:01→17:25)
[2020-12-19 05:00] VITALS: BP 98/51
[2020-12-19 05:23] LABS: Hematocrit 28.7 % (41.0-53.0); Hemoglobin 9.6 g/dL (13.5-17.5); Mean Corpuscular Hemoglobin 27.2 pg (28.0-32.0); Mean Corpuscular Hgb Conc. 33.5 g/dL (32.0-36.0); Mean Corpuscular Volume 81.3 fL (80.0-100.0); Red Blood Cells 3.53 10^6/uL (4.5-5.90); Red Cell Distribution Width 15.4 % (11.8-14.3)
[2020-12-19 05:42] LABS: Albumin 1.9 g/dL (3.4-5.0); BUN/Creatinine Ratio 9.3; Calcium 7.8 mg/dL (8.5-10.1); Potassium 5.3 mmol/L (3.5-5.1); White Blood Cell 37.5 10^3/uL (4.4-10.8)
[2020-12-19 05:43] LABS: Basophils % (manual) 0 (0.0-2.0); Blast Cells 0; Eosinophils % (manual) 0 (0-7); Metamyelocytes % 0; Promyelocytes % 0; Reactive Lymphocytes 0
[2020-12-19 05:45] LABS: Bilirubin, Total 0.5 mg/dL (0.2-1.0); Total Protein 6.5 g/dL (6.4-8.2)
[2020-12-19] MEDS: SODIUM CHLOR 0.9% PF (SALINE LOCK) 10ML VIAL/SYR IV SCH ×3 (06:12→22:25)
[2020-12-19] MEDS: InsuLIN REG 1unit/0.01ml Soln (100units/ml) SC SCH ×4 (06:19→22:37)
[2020-12-19] MEDS: ACCU-CHEK COMFORT CURVE STRIP VI SCH ×4 (06:20→22:38)
[2020-12-19] MEDS: MORPHINE SULFATE INJECTION 2 MG/ML SYRG IV PRN ×4 (06:21→20:52)
[2020-12-19 06:37] LABS: Band Neutrophils % (manual) 31; Lymphocytes % (manual) 7 (10.0-50.0); Monocytes % (manual) 3 (0-12); Myelocytes % 1
[2020-12-19 09:00] VITALS: BP 100/50
[2020-12-19] MEDS: cefTRIAXone 1GM/50ML D5W 50 ML IV SCH (09:52)
[2020-12-19] MEDS: FAMOTIDINE (10MG/ML) 2ML VL IV SCH (09:52)
[2020-12-19] MEDS: ZINC SULFATE 220mg CAP or TAB PO SCH (09:53)
[2020-12-19] MEDS: MULTIPLE VITAMIN TAB PO SCH (09:53)
[2020-12-19] MEDS: ASCORBIC ACID 500 MG TAB PO SCH (09:53)
[2020-12-19] MEDS: HEPARIN SODIUM (PORCINE) 5000 UNITS/ML 1ML VIAL SC SCH ×2 (10:00→22:25)
[2020-12-19 10:05] LABS: Hematocrit 29.9 % (41.0-53.0); Hemoglobin 9.7 g/dL (13.5-17.5); Mean Corpuscular Hemoglobin 26.5 pg (28.0-32.0); Mean Corpuscular Hgb Conc. 32.4 g/dL (32.0-36.0); Mean Corpuscular Volume 81.9 fL (80.0-100.0); Red Blood Cells 3.64 10^6/uL (4.5-5.90); Red Cell Distribution Width 15.3 % (11.8-14.3)
[2020-12-19 10:09] LABS: White Blood Cell 38.5 10^3/uL (4.4-10.8)
[2020-12-19 10:10] LABS: Basophils % (manual) 0 (0.0-2.0); Blast Cells 0; Eosinophils % (manual) 0 (0-7); Metamyelocytes % 0; Myelocytes % 0; Promyelocytes % 0; Reactive Lymphocytes 0
[2020-12-19 11:08] LABS: Amylase 9 U/L (25-115); Lipase 34 U/L (73-393)
[2020-12-19] MEDS: MEROPENEM 1GM IVPB 100 ML IV SCH ×2 (12:25→22:24)
[2020-12-19 13:00] VITALS: BP 104/58
[2020-12-19 14:02] LABS: Band Neutrophils % (manual) 11; Lymphocytes % (manual) 7 (10.0-50.0); Monocytes % (manual) 3 (0-12)
[2020-12-19 17:00] VITALS: BP 106/51
[2020-12-19] MEDS ORDERED: MORPHINE SULFATE INJECTION 2 MG/ML SYRG IV PRN (18:15)
[2020-12-19 19:50] VITALS: BP 101/54
[2020-12-19] MEDS: HYDROcodone-ACET 5/325MG TAB PO PRN ×2 (19:58→22:24)
[2020-12-19 22:00] VITALS: BP 109/56
[2020-12-19] MEDS: INSULIN LANTUS (GLARGINE) 1 /0.01ml (100units/ml) SC SCH ×2 (22:38→22:44)
[2020-12-19] MEDS: LORazepam 2MG/ML-1ML VIAL IV PRN (23:19)
[2020-12-20] VITALS (7 sets, daily range): BP systolic 110–156; BP diastolic 61–86
[2020-12-20] MEDS: SODIUM CHLORIDE 0.9% 1,000 ML IV SCH ×5 (00:05→21:26)
[2020-12-20 00:11] LABS: Protein, Urine 114.1 mg/dL (0.0-11.9)
[2020-12-20] MEDS: MORPHINE SULFATE INJECTION 2 MG/ML SYRG IV PRN ×6 (00:26→19:58)
[2020-12-20] MEDS: SODIUM CHLOR 0.9% PF (SALINE LOCK) 10ML VIAL/SYR IV SCH ×3 (05:34→21:27)
[2020-12-20] MEDS: ACCU-CHEK COMFORT CURVE STRIP VI SCH ×4 (06:06→21:27)
[2020-12-20] MEDS: InsuLIN REG 1unit/0.01ml Soln (100units/ml) SC SCH ×4 (06:09→21:27)
[2020-12-20] MEDS: FAMOTIDINE (10MG/ML) 2ML VL IV SCH (10:01)
[2020-12-20] MEDS: MULTIPLE VITAMIN TAB PO SCH (10:02)
[2020-12-20] MEDS: MEROPENEM 1GM IVPB 100 ML IV SCH ×2 (10:03→21:26)
[2020-12-20] MEDS: HEPARIN SODIUM (PORCINE) 5000 UNITS/ML 1ML VIAL SC SCH ×2 (10:07→21:35)
[2020-12-20 10:42] LABS: Basophils # (auto) 0.1 10 ^3/uL (0-0.2); Basophils % (auto) 0.3 % (0.0-2.0); Eosinophils # (auto) 0.1 10 ^3/uL (0-0.8); Eosinophils % (auto) 0.6 % (0.0-7.0); Hemoglobin 10.2 g/dL (13.5-17.5); Lymphocytes # (auto) 1.9 10 ^3/uL (0.4-5.4); Mean Corpuscular Hemoglobin 26.9 pg (28.0-32.0); Mean Corpuscular Hgb Conc. 32.9 g/dL (32.0-36.0); Mean Corpuscular Volume 81.8 fL (80.0-100.0); Monocytes # (auto) 0.5 10 ^3/uL (0-1.3); Monocytes % (auto) 2.9 % (0.0-12.0); Neutrophils # (auto) 14.8 10 ^3/uL (1.6-8.6); Neutrophils % (auto) 85.2 % (37.0-80.0); Nucleated Red Blood Cells % 0.1 %; Red Blood Cells 3.79 10^6/uL (4.5-5.90); Red Cell Distribution Width 15.1 % (11.8-14.3); White Blood Cell 17.4 10^3/uL (4.4-10.8)
[2020-12-20 10:49] LABS: Albumin 2.2 g/dL (3.4-5.0); Calcium 8.5 mg/dL (8.5-10.1); Magnesium 1.7 mg/dL (1.6-2.6); Potassium 4.1 mmol/L (3.5-5.1)
[2020-12-20 11:04] LABS: BUN/Creatinine Ratio 13.1; Bilirubin, Total 0.3 mg/dL (0.2-1.0)
[2020-12-20] MEDS: METHADONE HCL 10 MG TAB PO SCH (11:19)
[2020-12-20 16:03] LABS: INR 1.21 (0.9-1.15); Partial Thromboplastin Time 28.2 sec (23.6-33.0)
[2020-12-20] MEDS: LORazepam 2MG/ML-1ML VIAL IV PRN (21:35)
[2020-12-21] MEDS: MORPHINE SULFATE INJECTION 2 MG/ML SYRG IV PRN ×5 (01:09→21:47)
[2020-12-21] MEDS: SODIUM CHLORIDE 0.9% 1,000 ML IV SCH ×2 (02:45→09:25)
[2020-12-21 05:00] VITALS: BP 121/68
[2020-12-21] MEDS: InsuLIN REG 1unit/0.01ml Soln (100units/ml) SC SCH ×4 (06:05→20:56)
[2020-12-21] MEDS: ACCU-CHEK COMFORT CURVE STRIP VI SCH ×4 (06:05→20:42)
[2020-12-21] MEDS: SODIUM CHLOR 0.9% PF (SALINE LOCK) 10ML VIAL/SYR IV SCH ×3 (06:16→20:41)
[2020-12-21 06:55] LABS: Basophils # (auto) 0.1 10 ^3/uL (0-0.2); Basophils % (auto) 0.9 % (0.0-2.0); Eosinophils # (auto) 0.2 10 ^3/uL (0-0.8); Eosinophils % (auto) 1.5 % (0.0-7.0); Hemoglobin 9.6 g/dL (13.5-17.5); Lymphocytes # (auto) 2.6 10 ^3/uL (0.4-5.4); Lymphocytes % (auto) 22.7 % (10.0-50.0); Mean Corpuscular Hemoglobin 27.1 pg (28.0-32.0); Mean Corpuscular Hgb Conc. 33.1 g/dL (32.0-36.0); Mean Corpuscular Volume 81.7 fL (80.0-100.0); Monocytes # (auto) 0.4 10 ^3/uL (0-1.3); Monocytes % (auto) 3.8 % (0.0-12.0); Neutrophils # (auto) 8.1 10 ^3/uL (1.6-8.6); Neutrophils % (auto) 71.1 % (37.0-80.0); Red Blood Cells 3.54 10^6/uL (4.5-5.90); Red Cell Distribution Width 15.3 % (11.8-14.3); White Blood Cell 11.4 10^3/uL (4.4-10.8)
[2020-12-21 07:07] LABS: Albumin 2.2 g/dL (3.4-5.0); Calcium 8.2 mg/dL (8.5-10.1); Potassium 4.6 mmol/L (3.5-5.1)
[2020-12-21 07:22] LABS: BUN/Creatinine Ratio 12.3; Bilirubin, Total 0.3 mg/dL (0.2-1.0); Total Protein 6.6 g/dL (6.4-8.2)
[2020-12-21] MEDS: HEPARIN SODIUM (PORCINE) 5000 UNITS/ML 1ML VIAL SC SCH ×2 (09:41→21:57)
[2020-12-21] MEDS: FAMOTIDINE (10MG/ML) 2ML VL IV SCH (09:44)
[2020-12-21] MEDS: METHADONE HCL 10 MG TAB PO SCH (09:45)
[2020-12-21] MEDS: MEROPENEM 1GM IVPB 100 ML IV SCH ×2 (09:46→19:27)
[2020-12-21] MEDS: MULTIPLE VITAMIN TAB PO SCH (09:46)
[2020-12-21] MEDS: INSULIN LANTUS (GLARGINE) 1 /0.01ml (100units/ml) SC SCH (09:49)
[2020-12-21 12:09] LABS: Bilirubin, Direct 0.2 mg/dL (0-0.2); Bilirubin, Total 0.3 mg/dL (0.2-1.0)
[2020-12-21 13:00] VITALS: BP 150/83
[2020-12-21 17:47] VITALS: BP 105/70
[2020-12-21] MEDS: LORazepam 2MG/ML-1ML VIAL IV PRN (20:42)
[2020-12-21 22:00] VITALS: BP 98/59
[2020-12-22] MEDS: MEROPENEM 1GM IVPB 100 ML IV SCH ×3 (01:27→18:00)
[2020-12-22] MEDS: MORPHINE SULFATE INJECTION 2 MG/ML SYRG IV PRN ×4 (01:53→22:20)
[2020-12-22 05:00] VITALS: BP 138/69
[2020-12-22 05:52] LABS: Albumin 2.2 g/dL (3.4-5.0); Calcium 8.5 mg/dL (8.5-10.1); Potassium 4.2 mmol/L (3.5-5.1)
[2020-12-22 05:57] LABS: Basophils # (auto) 0.1 10 ^3/uL (0-0.2); Eosinophils # (auto) 0.2 10 ^3/uL (0-0.8); Eosinophils % (auto) 2.3 % (0.0-7.0); Hematocrit 29.3 % (41.0-53.0); Lymphocytes % (auto) 33.5 % (10.0-50.0); Mean Corpuscular Hemoglobin 27.7 pg (28.0-32.0); Mean Corpuscular Hgb Conc. 34.1 g/dL (32.0-36.0); Mean Corpuscular Volume 81.3 fL (80.0-100.0); Monocytes # (auto) 0.3 10 ^3/uL (0-1.3); Monocytes % (auto) 3.5 % (0.0-12.0); Neutrophils # (auto) 5.4 10 ^3/uL (1.6-8.6); Neutrophils % (auto) 59.7 % (37.0-80.0); Nucleated Red Blood Cells % 0.1 %
[2020-12-22] MEDS: SODIUM CHLOR 0.9% PF (SALINE LOCK) 10ML VIAL/SYR IV SCH ×3 (06:01→22:21)
[2020-12-22] MEDS: INSULIN LANTUS (GLARGINE) 1 /0.01ml (100units/ml) SC SCH (06:02)
[2020-12-22] MEDS: ACCU-CHEK COMFORT CURVE STRIP VI SCH ×4 (06:02→22:21)
[2020-12-22] MEDS: InsuLIN REG 1unit/0.01ml Soln (100units/ml) SC SCH ×4 (06:03→22:22)
[2020-12-22 06:06] LABS: Bilirubin, Total 0.3 mg/dL (0.2-1.0); Total Protein 6.7 g/dL (6.4-8.2)
[2020-12-22 08:30] VITALS: BP 147/73
[2020-12-22] MEDS: HEPARIN SODIUM (PORCINE) 5000 UNITS/ML 1ML VIAL SC SCH ×2 (10:00→22:22)
[2020-12-22] MEDS: FAMOTIDINE (10MG/ML) 2ML VL IV SCH (10:00)
[2020-12-22] MEDS: METHADONE HCL 10 MG TAB PO SCH (10:00)
[2020-12-22] MEDS: MULTIPLE VITAMIN TAB PO SCH (10:00)
[2020-12-22] MEDS ORDERED: IOHEXOL 300 MG/ML 100ML BOTTLE IJ ONE (11:50)
[2020-12-22] MEDS ORDERED: LIDOCAINE 2%HCL (LOCAL ANESTH.) INJ 20ML MDV ONE (11:50)
[2020-12-22 13:04] VITALS: BP 147/80
[2020-12-22] MEDS: SODIUM CHLORIDE 0.9% 1,000 ML IV SCH ×3 (17:00→20:06)
[2020-12-22 17:53] VITALS: BP 119/57
[2020-12-22] MEDS: LORazepam 2MG/ML-1ML VIAL IV PRN (21:49)
[2020-12-22 22:00] VITALS: BP 134/77
[2020-12-23] MEDS: MEROPENEM 1GM IVPB 100 ML IV SCH ×3 (02:14→18:00)
[2020-12-23] MEDS: MORPHINE SULFATE INJECTION 2 MG/ML SYRG IV PRN ×2 (02:16→14:55)
[2020-12-23 05:00] VITALS: BP 104/66
[2020-12-23] MEDS: SODIUM CHLOR 0.9% PF (SALINE LOCK) 10ML VIAL/SYR IV SCH ×2 (05:31→14:00)
[2020-12-23] MEDS: InsuLIN REG 1unit/0.01ml Soln (100units/ml) SC SCH ×3 (05:34→17:00)
[2020-12-23] MEDS: ACCU-CHEK COMFORT CURVE STRIP VI SCH ×3 (05:34→17:00)
[2020-12-23] MEDS: INSULIN LANTUS (GLARGINE) 1 /0.01ml (100units/ml) SC SCH (05:35)
[2020-12-23 09:00] VITALS: BP 156/88
[2020-12-23] MEDS ORDERED: LIDOCAINE 2%HCL (LOCAL ANESTH.) INJ 20ML MDV ONE (09:54)
[2020-12-23] MEDS ORDERED: fentaNYL CITRATE 100 MCG/2 ML VL ONE (09:59)
[2020-12-23] MEDS: HEPARIN SODIUM (PORCINE) 5000 UNITS/ML 1ML VIAL SC SCH (10:00)
[2020-12-23] MEDS ORDERED: MIDAZOLAM HCL 2MG/2ML 2ml VIAL (1mg/ml) ONE (10:00)
[2020-12-23] MEDS ORDERED: HEPARIN 1,000 UNITS/ml 1ML VIAL ONE (10:47)
[2020-12-23] MEDS: METHADONE HCL 10 MG TAB PO SCH (12:30)
[2020-12-23] MEDS: FAMOTIDINE (10MG/ML) 2ML VL IV SCH (12:30)
[2020-12-23] MEDS: MULTIPLE VITAMIN TAB PO SCH (12:30)
[2020-12-23 13:00] VITALS: BP 131/81
[2020-12-23] MEDS: SODIUM CHLORIDE 0.9% 1,000 ML IV SCH (13:08)
[2020-12-23 16:57] VITALS: BP 152/75
[2020-12-23 19:05] VITALS: BP 155/79
== END 2020-12-23 19:25 | disposition home health service (06) | DRG 871 ==
LOC: ER 14:08 → EDBD 14:08 → OVERFLOW 23:57 → TELE-CENTR 12-17 16:17
PROVIDERS: ADMIT Nurse Practitioner Family; ATTEND Internal Medicine
PROC: 05HY33Z Insertion of Infusion Device into Upper Vein, Percutaneous Approach (ICD-10-PCS; principal; 2020-12-22)
PROC: B5171ZZ Fluoroscopy of Left Subclavian Vein using Low Osmolar Contrast (ICD-10-PCS; 2020-12-22)
PROC: B547ZZA Ultrasonography of Left Subclavian Vein, Guidance (ICD-10-PCS; 2020-12-22)
PROC: 02PYX3Z Removal of Infusion Device from Great Vessel, External Approach (ICD-10-PCS; 2020-12-22)
PROC: 0JH63XZ Insertion of Tunneled Vascular Access Device into Chest Subcutaneous Tissue and Fascia, Percutaneous Approach (ICD-10-PCS; 2020-12-23)
PROC: 02HV33Z Insertion of Infusion Device into Superior Vena Cava, Percutaneous Approach (ICD-10-PCS; 2020-12-23)
PROC: B5181ZA Fluoroscopy of Superior Vena Cava using Low Osmolar Contrast, Guidance (ICD-10-PCS; 2020-12-23)
PROC: B548ZZA Ultrasonography of Superior Vena Cava, Guidance (ICD-10-PCS; 2020-12-23)
DX: A41.50 Gram-negative sepsis, unspecified (principal); N17.0 Acute kidney failure with tubular necrosis; G40.89 Other seizures; F11.20 Opioid dependence, uncomplicated; K86.1 Other chronic pancreatitis; N39.0 Urinary tract infection, site not specified; D63.8 Anemia in other chronic diseases classified elsewhere; E11.22 Type 2 diabetes mellitus with diabetic chronic kidney disease; E11.65 Type 2 diabetes mellitus with hyperglycemia; E88.09 Other disorders of plasma-protein metabolism, not elsewhere classified; F17.210 Nicotine dependence, cigarettes, uncomplicated; I12.9 Hypertensive chronic kidney disease with stage 1 through stage 4 chronic kidney disease, or unspecified chronic kidney disease; J45.909 Unspecified asthma, uncomplicated; N18.9 Chronic kidney disease, unspecified; E86.0 Dehydration; Z20.822 Contact with and (suspected) exposure to COVID-19; F41.9 Anxiety disorder, unspecified; G89.29 Other chronic pain; E78.5 Hyperlipidemia, unspecified; Z80.1 Family history of malignant neoplasm of trachea, bronchus and lung; Z82.49 Family history of ischemic heart disease and other diseases of the circulatory system; Z83.3 Family history of diabetes mellitus; Z93.3 Colostomy status
CPT/HCPCS: 36415; 70450; 70551; 71045; 74176; 76000; 76937; 76942; 77002; 80048; 80053; 80307; 80320; 81001; 82150; 82247; 82248; 82570; 82962; 83036; 83690; 83735; 83935; 84156; 84300; 84484; 85007; 85025; 85027; 85379; 85610; 85730; 87040; 87070; 87077; 87086; 87186; 87205; 87426; 93005; 93306; 95819; 99152; 99153; G0378; J0696; J1815; J2185; J2250; J2405; J3490; J7060

== ENCOUNTER 2021-06-01 15:57 | Inpatient (IN) | payer OTHER, MEDICAID ==
[~2021-06-01] VITALS: Ht 177.8 cm; Wt 70.3 kg
[~2021-06-01 15:57] MED LIST changes: +LOPE2CAP PO
[2021-06-01] MEDS ORDERED: PIPERACILLIN-TAZOB 3.375GM 100 ML IV ONE (16:30)
[2021-06-01] MEDS ORDERED: SODIUM CHLORIDE 0.9% 1,000 ML IV ONE ×2 (16:30)
[2021-06-01 16:56] LABS: Basophils # (auto) 0 10 ^3/uL (0-0.2); Hemoglobin 7.7 g/dL (13.5-17.5); Mean Corpuscular Hgb Conc. 35.2 g/dL (32.0-36.0); Monocytes # (auto) 0.3 10 ^3/uL (0-1.3); Monocytes % (auto) 5.1 % (0.0-12.0)
[2021-06-01 16:57] LABS: Basophils % (auto) 0.7 % (0.0-2.0); Eosinophils # (auto) 0.1 10 ^3/uL (0-0.8); Hematocrit 21.8 % (41.0-53.0); Lymphocytes # (auto) 1.4 10 ^3/uL (0.4-5.4); Lymphocytes % (auto) 26.5 % (10.0-50.0); Mean Corpuscular Hemoglobin 29.6 pg (28.0-32.0); Mean Corpuscular Volume 83.9 fL (80.0-100.0); Neutrophils # (auto) 3.5 10 ^3/uL (1.6-8.6); Neutrophils % (auto) 66.7 % (37.0-80.0); Red Cell Distribution Width 16.1 % (11.8-14.3); White Blood Cell 5.2 10^3/uL (4.4-10.8)
[2021-06-01 17:17] LABS: BUN/Creatinine Ratio 8.2; Calcium 6.8 mg/dL (8.5-10.1); Potassium 3.3 mmol/L (3.5-5.1)
[2021-06-01 17:21] LABS: Bilirubin, Total 1.4 mg/dL (0.2-1.0); Total Protein 6.4 g/dL (6.4-8.2)
[2021-06-01 17:36] LABS: INR 1.79 (0.9-1.15)
[2021-06-01 17:49] LABS: Partial Thromboplastin Time 46.7 sec (23.6-33.0)
[2021-06-01] MEDS ORDERED: POTASSIUM EFFERVESENT TAB 25 MEQ PO ONE (18:00)
[2021-06-01] MEDS ORDERED: NITROGLYCERIN 0.4 MG SL TAB SL PRN (18:45)
[2021-06-01] MEDS ORDERED: ACETAMINOPHEN 325 MG RECT SUPP PR PRN (18:45)
[2021-06-01] MEDS ORDERED: MORPHINE SULFATE INJECTION 2 MG/ML SYRG IV PRN (18:45)
[2021-06-01] MEDS ORDERED: DEXTROSE (50%) 50ML SYRG IV PRN (18:45)
[2021-06-01 18:58] LABS: Urine Bacteria NONE SEEN /hpf (None Seen); Urine Blood Negative /uL (Negative); Urine Hyaline Cast FEW /lpf (0 - 2); Urine Specific Gravity 1.017 (1.001-1.035); Urine WBC 4 /hpf (0 - 3)
[2021-06-01 19:39] LABS: Hematocrit 22.6 % (41.0-53.0)
[2021-06-01] MEDS ORDERED: hydrALAZINE HCL 20 MG/ML VL IV PRN (19:45)
[2021-06-01 21:30] VITALS: BP 128/74
[2021-06-01] MEDS: InsuLIN REG 1unit/0.01ml Soln (100units/ml) SC SCH (21:41)
[2021-06-01] MEDS: ACCU-CHEK COMFORT CURVE STRIP VI SCH (21:41)
[2021-06-01] MEDS: LINEZOLID 600MG/300ML 300 ML IV SCH (22:08)
[2021-06-01] MEDS: MORPHINE SULFATE INJECTION 2 MG/ML SYRG IV PRN (22:18)
[2021-06-01 23:04] LABS: Albumin 2.1 g/dL (3.4-5.0); BUN/Creatinine Ratio 7.7; Calcium 7.1 mg/dL (8.5-10.1); Potassium 3.5 mmol/L (3.5-5.1)
[2021-06-01 23:07] LABS: Bilirubin, Total 1.4 mg/dL (0.2-1.0); Total Protein 6.8 g/dL (6.4-8.2)
[2021-06-02 01:30] LABS: Hematocrit 25.1 % (41.0-53.0); Hemoglobin 8.8 g/dL (13.5-17.5)
[2021-06-02 05:00] VITALS: BP 139/76
[2021-06-02] MEDS: ACCU-CHEK COMFORT CURVE STRIP VI SCH ×7 (05:28→23:23)
[2021-06-02] MEDS: InsuLIN REG 1unit/0.01ml Soln (100units/ml) SC SCH ×7 (05:29→23:23)
[2021-06-02 05:57] LABS: Basophils # (auto) 0 10 ^3/uL (0-0.2); Basophils % (auto) 0.7 % (0.0-2.0); Eosinophils # (auto) 0.1 10 ^3/uL (0-0.8); Eosinophils % (auto) 1.7 % (0.0-7.0); Hematocrit 25.7 % (41.0-53.0); Hemoglobin 9.1 g/dL (13.5-17.5); Lymphocytes # (auto) 1.6 10 ^3/uL (0.4-5.4); Lymphocytes % (auto) 28.5 % (10.0-50.0); Mean Corpuscular Hemoglobin 29.6 pg (28.0-32.0); Mean Corpuscular Hgb Conc. 35.4 g/dL (32.0-36.0); Mean Corpuscular Volume 83.6 fL (80.0-100.0); Monocytes # (auto) 0.3 10 ^3/uL (0-1.3); Monocytes % (auto) 5.7 % (0.0-12.0); Neutrophils # (auto) 3.5 10 ^3/uL (1.6-8.6); Neutrophils % (auto) 63.4 % (37.0-80.0); Nucleated Red Blood Cells % 0.1 %; Red Blood Cells 3.07 10^6/uL (4.5-5.90); Red Cell Distribution Width 15.9 % (11.8-14.3); White Blood Cell 5.5 10^3/uL (4.4-10.8)
[2021-06-02 06:18] LABS: Potassium 4.1 mmol/L (3.5-5.1)
[2021-06-02 06:24] LABS: Albumin 2.2 g/dL (3.4-5.0); BUN/Creatinine Ratio 8.6; Calcium 7.5 mg/dL (8.5-10.1)
[2021-06-02 06:26] LABS: Bilirubin, Total 1.1 mg/dL (0.2-1.0); Total Protein 6.8 g/dL (6.4-8.2)
[2021-06-02 06:28] LABS: INR 1.67 (0.9-1.15)
[2021-06-02] MEDS: MORPHINE SULFATE INJECTION 2 MG/ML SYRG IV PRN ×3 (08:04→23:48)
[2021-06-02 08:41] VITALS: BP 108/63
[2021-06-02] MEDS: ENOXAPARIN SOD 40 MG/0.4 ML SYRINGE SC SCH (10:00)
[2021-06-02] MEDS: LINEZOLID 600MG/300ML 300 ML IV SCH ×2 (10:00→23:48)
[2021-06-02] MEDS: PANTOPRAZOLE 40 MG/10 ML VIAL INJ IV SCH (10:00)
[2021-06-02 13:00] VITALS: BP 130/58
[2021-06-02 13:17] LABS: Hemoglobin 9.7 g/dL (13.5-17.5)
[2021-06-02] MEDS: SODIUM CHLORIDE 0.9% 1,000 ML IV SCH (14:00)
[2021-06-02] MEDS ORDERED: ONDANSETRON HCL 4 MG/2 ML VIAL IV PRN (16:00)
[2021-06-02 16:49] VITALS: BP 90/46
[2021-06-02 18:27] LABS: Hematocrit 27.3 % (41.0-53.0); Hemoglobin 9.4 g/dL (13.5-17.5)
[2021-06-02] MEDS: PANCREATIC ENZYMES 4200 UNIT CAP PO SCH (18:27)
[2021-06-02] MEDS: cefTRIAXone 1GM/50ML D5W 50 ML IV SCH (18:27)
[2021-06-02] MEDS ORDERED: HYDROcodone-ACET 5/325MG TAB PO PRN (21:30)
[2021-06-02 22:00] VITALS: BP 101/44
[2021-06-02] MEDS: OXYCODONE W/ ACETAMINOPHEN 5/325MG TABLET PO PRN (22:43)
[2021-06-02] MEDS: INSULIN LANTUS (GLARGINE) 1 /0.01ml (100units/ml) SC SCH (23:24)
[2021-06-03] MEDS ORDERED: clonazePAM 0.5 MG TAB PO ONE
[2021-06-03] MEDS: SODIUM CHLORIDE 0.9% 1,000 ML IV SCH (03:20)
[2021-06-03] MEDS: InsuLIN REG 1unit/0.01ml Soln (100units/ml) SC SCH ×5 (04:00→21:27)
[2021-06-03] MEDS: ACCU-CHEK COMFORT CURVE STRIP VI SCH ×5 (04:12→21:15)
[2021-06-03] MEDS: OXYCODONE W/ ACETAMINOPHEN 5/325MG TABLET PO PRN ×4 (04:23→21:10)
[2021-06-03 05:00] VITALS: BP 103/47
[2021-06-03 06:50] LABS: Basophils # (auto) 0 10 ^3/uL (0-0.2); Basophils % (auto) 0.4 % (0.0-2.0); Eosinophils # (auto) 0 10 ^3/uL (0-0.8); Eosinophils % (auto) 0.1 % (0.0-7.0); Hematocrit 24.5 % (41.0-53.0); Hemoglobin 8.7 g/dL (13.5-17.5); Lymphocytes # (auto) 2.1 10 ^3/uL (0.4-5.4); Lymphocytes % (auto) 26.6 % (10.0-50.0); Mean Corpuscular Hemoglobin 29.6 pg (28.0-32.0); Mean Corpuscular Hgb Conc. 35.4 g/dL (32.0-36.0); Mean Corpuscular Volume 83.8 fL (80.0-100.0); Monocytes # (auto) 0.4 10 ^3/uL (0-1.3); Monocytes % (auto) 5.7 % (0.0-12.0); Neutrophils # (auto) 5.2 10 ^3/uL (1.6-8.6); Neutrophils % (auto) 67.2 % (37.0-80.0); Red Blood Cells 2.93 10^6/uL (4.5-5.90); Red Cell Distribution Width 15.9 % (11.8-14.3); White Blood Cell 7.7 10^3/uL (4.4-10.8)
[2021-06-03 07:00] LABS: Albumin 2.1 g/dL (3.4-5.0); Calcium 7.1 mg/dL (8.5-10.1); Magnesium 1.1 mg/dL (1.6-2.6); Potassium 3.4 mmol/L (3.5-5.1)
[2021-06-03 07:03] LABS: Total Protein 6.8 g/dL (6.4-8.2)
[2021-06-03] MEDS: MORPHINE SULFATE INJECTION 2 MG/ML SYRG IV PRN (07:59)
[2021-06-03 08:00] VITALS: BP 102/68
[2021-06-03] MEDS: PANCREATIC ENZYMES 4200 UNIT CAP PO SCH ×3 (08:01→18:00)
[2021-06-03] MEDS: cefTRIAXone 1GM/50ML D5W 50 ML IV SCH (08:02)
[2021-06-03] MEDS: ENOXAPARIN SOD 40 MG/0.4 ML SYRINGE SC SCH (10:08)
[2021-06-03] MEDS: PANTOPRAZOLE 40 MG/10 ML VIAL INJ IV SCH (10:08)
[2021-06-03] MEDS: LINEZOLID 600MG/300ML 300 ML IV SCH ×2 (10:08→22:39)
[2021-06-03] MEDS ORDERED: SODIUM CHLORIDE 0.9% 1,000 ML IV SCH ×3 (10:45→21:00)
[2021-06-03] MEDS ORDERED: METHADONE HCL 10 MG TAB PO ONE (11:15)
[2021-06-03 12:00] VITALS: BP 119/51
[2021-06-03] MEDS ORDERED: clonazePAM 0.5 MG TAB PO PRN (13:00)
[2021-06-03] MEDS ORDERED: POTASSIUM CHL 20 Meq TABLET PO ONE (13:45)
[2021-06-03] MEDS: metroNIDAZOLE 500MG/100ML 100 ML IV SCH (15:00)
[2021-06-03 16:00] VITALS: BP 103/51
[2021-06-03] MEDS: MAGNESIUM SULFATE 1GM/100ML 100 ML IV SCH ×2 (17:00→18:00)
[2021-06-03] MEDS: INSULIN LANTUS (GLARGINE) 1 /0.01ml (100units/ml) SC SCH (21:28)
[2021-06-03 22:00] VITALS: BP 95/48
[2021-06-04] MEDS: ACCU-CHEK COMFORT CURVE STRIP VI SCH ×3 (00:24→08:00)
[2021-06-04] MEDS: metroNIDAZOLE 500MG/100ML 100 ML IV SCH ×2 (00:45→06:51)
[2021-06-04] MEDS: InsuLIN REG 1unit/0.01ml Soln (100units/ml) SC SCH ×3 (03:56→08:00)
[2021-06-04 05:00] VITALS: BP 104/42
[2021-06-04] MEDS: OXYCODONE W/ ACETAMINOPHEN 5/325MG TABLET PO PRN (06:52)
[2021-06-04 06:54] LABS: Hemoglobin 8.2 g/dL (13.5-17.5)
[2021-06-04 07:14] LABS: Potassium 3.3 mmol/L (3.5-5.1)
[2021-06-04 07:22] LABS: BUN/Creatinine Ratio 11.3; Calcium 7.3 mg/dL (8.5-10.1); Magnesium 1.9 mg/dL (1.6-2.6)
[2021-06-04 07:28] LABS: INR 1.7 (0.9-1.15)
[2021-06-04 09:00] VITALS: BP 95/45
[2021-06-04] MEDS ORDERED: SODIUM CHLORIDE 0.9% 1,000 ML IV SCH ×2 (09:00→21:00)
[2021-06-04] MEDS: PANTOPRAZOLE 40 MG/10 ML VIAL INJ IV SCH (10:00)
[2021-06-04] MEDS ORDERED: METHADONE HCL 10 MG TAB PO SCH (10:00)
[2021-06-04] MEDS: cefTRIAXone 1GM/50ML D5W 50 ML IV SCH (10:55)
[2021-06-04] MEDS: LINEZOLID 600MG/300ML 300 ML IV SCH (10:55)
[2021-06-04] MEDS: PANCREATIC ENZYMES 4200 UNIT CAP PO SCH (10:56)
[2021-06-04] MEDS: ENOXAPARIN SOD 40 MG/0.4 ML SYRINGE SC SCH (10:58)
[2021-06-05] MEDS ORDERED: SODIUM CHLORIDE 0.9% 1,000 ML IV SCH (09:00)
== END 2021-06-04 12:25 | disposition left against medical advice (07) | DRG 871 ==
LOC: ER 15:57 → TELE 18:31 → TELE-EAST 20:04
PROVIDERS: ADMIT Family Medicine; ATTEND Internal Medicine
DX: A41.9 Sepsis, unspecified organism (principal); N17.0 Acute kidney failure with tubular necrosis; K80.00 Calculus of gallbladder with acute cholecystitis without obstruction; K86.1 Other chronic pancreatitis; E88.09 Other disorders of plasma-protein metabolism, not elsewhere classified; E87.6 Hypokalemia; D64.9 Anemia, unspecified; Z20.822 Contact with and (suspected) exposure to COVID-19; Z53.29 Procedure and treatment not carried out because of patient's decision for other reasons; E11.22 Type 2 diabetes mellitus with diabetic chronic kidney disease; F17.210 Nicotine dependence, cigarettes, uncomplicated; F41.9 Anxiety disorder, unspecified; G89.29 Other chronic pain; N32.89 Other specified disorders of bladder; I12.9 Hypertensive chronic kidney disease with stage 1 through stage 4 chronic kidney disease, or unspecified chronic kidney disease; J45.909 Unspecified asthma, uncomplicated; N18.9 Chronic kidney disease, unspecified; N40.0 Benign prostatic hyperplasia without lower urinary tract symptoms; Z79.4 Long term (current) use of insulin; Z80.1 Family history of malignant neoplasm of trachea, bronchus and lung; Z82.49 Family history of ischemic heart disease and other diseases of the circulatory system; Z83.3 Family history of diabetes mellitus; Z88.1 Allergy status to other antibiotic agents; Z90.411 Acquired partial absence of pancreas; Z93.2 Ileostomy status; Z93.3 Colostomy status
CPT/HCPCS: 36415; 71045; 74176; 76705; 78226; 80048; 80053; 81001; 82962; 83605; 83735; 84443; 84484; 85014; 85018; 85025; 85610; 85730; 87040; 87086; 87493; 93005; 96361; 96365; 99291; C9113; G0378; J0696; J1815; J2543; J3490

== ENCOUNTER 2021-09-28 19:37 | Inpatient (IN) | payer OTHER, MEDICAID ==
[~2021-09-28] VITALS: Ht 177.8 cm; Wt 93.8 kg
[2021-09-28 22:17] LABS: Basophils # (auto) 0.1 10 ^3/uL (0-0.2); Basophils % (auto) 0.9 % (0.0-2.0); Eosinophils # (auto) 0.2 10 ^3/uL (0-0.8); Eosinophils % (auto) 3.2 % (0.0-7.0); Hemoglobin 9.2 g/dL (13.5-17.5); Lymphocytes # (auto) 2.5 10 ^3/uL (0.4-5.4); Mean Corpuscular Hemoglobin 28.8 pg (28.0-32.0); Mean Corpuscular Hgb Conc. 32.9 g/dL (32.0-36.0); Mean Corpuscular Volume 87.3 fL (80.0-100.0); Monocytes # (auto) 0.2 10 ^3/uL (0-1.3); Monocytes % (auto) 2.9 % (0.0-12.0); Neutrophils # (auto) 4.1 10 ^3/uL (1.6-8.6); Nucleated Red Blood Cells % 0.1 %; Red Blood Cells 3.21 10^6/uL (4.5-5.90); Red Cell Distribution Width 14.2 % (11.8-14.3); White Blood Cell 7.1 10^3/uL (4.4-10.8)
[2021-09-28] MEDS ORDERED: SODIUM CHLORIDE 0.9% 1,000 ML IV ONE (22:30)
[2021-09-28 22:38] LABS: Calcium 6.1 mg/dL (8.5-10.1)
[2021-09-28 22:53] LABS: Albumin 2.4 g/dL (3.4-5.0); BUN/Creatinine Ratio 4.6; Bilirubin, Total 0.5 mg/dL (0.2-1.0); Total Protein 6.6 g/dL (6.4-8.2)
[2021-09-28 23:04] LABS: Potassium 8.2 mmol/L (3.5-5.1)
[2021-09-29] VITALS (33 sets, daily range): BP systolic 78–136; BP diastolic 40–76
[2021-09-29 00:22] LABS: BUN/Creatinine Ratio 4.7
[2021-09-29 00:23] LABS: Albumin 2.4 g/dL (3.4-5.0); Bilirubin, Total 0.5 mg/dL (0.2-1.0); Total Protein 6.3 g/dL (6.4-8.2)
[2021-09-29 00:26] LABS: Potassium 8.5 mmol/L (3.5-5.1)
[2021-09-29] MEDS ORDERED: InsuLIN REG 1unit/0.01ml Soln (100units/ml) IV ONE (00:45)
[2021-09-29] MEDS ORDERED: DEXTROSE (50%) 50ML SYRG IV ONE (00:45)
[2021-09-29] MEDS ORDERED: SODIUM BICARBONATE 8.4% INJ 50ML SYRINGE IV ONE (00:45)
[2021-09-29] MEDS ORDERED: CALCIUM GLUC 1,000mg/50ml-NS 50 ML IV ONE ×3 (00:45→18:30)
[2021-09-29] MEDS ORDERED: ALBUTEROL SULF 2.5 MG/0.5ML(0.5%) NEB SOLN NEB ONE ×2 (00:45→11:30)
[2021-09-29] MEDS: MAGNESIUM SULFATE 1GM/100ML 100 ML IV SCH ×4 (01:00→14:00)
[2021-09-29] MEDS ORDERED: FUROSEMIDE 20 MG/2 ML VIAL IV ONE (01:00)
[2021-09-29] MEDS ORDERED: DOCUSATE SOD 100 MG CAP PO PRN (01:15)
[2021-09-29] MEDS ORDERED: ALBUMIN 25% 100 ML IV ONE (01:15)
[2021-09-29] MEDS ORDERED: DEXTROSE (50%) 50ML SYRG IV PRN ×2 (01:15→23:15)
[2021-09-29] MEDS ORDERED: ACETAMINOPHEN 325 MG TAB PO PRN (01:15)
[2021-09-29 05:00] LABS: Basophils # (auto) 0.1 10 ^3/uL (0-0.2); Basophils % (auto) 1.1 % (0.0-2.0); Eosinophils # (auto) 0.2 10 ^3/uL (0-0.8); Hemoglobin 8.2 g/dL (13.5-17.5); Lymphocytes # (auto) 2.1 10 ^3/uL (0.4-5.4); Monocytes # (auto) 0.2 10 ^3/uL (0-1.3); Neutrophils # (auto) 3.3 10 ^3/uL (1.6-8.6); White Blood Cell 5.9 10^3/uL (4.4-10.8)
[2021-09-29] MEDS ORDERED: SODIUM CHLORIDE 0.9% 500 ML IV ONE ×2 (05:00→13:15)
[2021-09-29 05:03] LABS: Eosinophils % (auto) 3.4 % (0.0-7.0); Hematocrit 24.1 % (41.0-53.0); Lymphocytes % (auto) 35.9 % (10.0-50.0); Mean Corpuscular Hemoglobin 29.4 pg (28.0-32.0); Mean Corpuscular Hgb Conc. 34.2 g/dL (32.0-36.0); Monocytes % (auto) 3.8 % (0.0-12.0); Neutrophils % (auto) 55.8 % (37.0-80.0); Red Cell Distribution Width 14.4 % (11.8-14.3)
[2021-09-29] MEDS ORDERED: MORPHINE SULFATE INJ 2 MG/ml SYRG IV PRN (05:15)
[2021-09-29] MEDS ORDERED: NITROGLYCERIN 0.4 MG SL TAB SL PRN (05:15)
[2021-09-29 05:19] LABS: Albumin 2.6 g/dL (3.4-5.0)
[2021-09-29 05:23] LABS: BUN/Creatinine Ratio 4.7; Bilirubin, Total 0.4 mg/dL (0.2-1.0)
[2021-09-29 05:46] LABS: Calcium 5.7 mg/dL (8.5-10.1)
[2021-09-29 05:47] LABS: Potassium 6.6 mmol/L (3.5-5.1)
[2021-09-29] MEDS: SODIUM CHLOR 0.9% PF (SALINE LOCK) 10ML VIAL/SYR IV SCH ×3 (06:22→21:32)
[2021-09-29] MEDS: ACCU-CHEK COMFORT CURVE STRIP VI SCH ×5 (07:46→23:44)
[2021-09-29] MEDS: InsuLIN REG 1unit/0.01ml Soln (100units/ml) SC SCH ×4 (07:47→23:44)
[2021-09-29] MEDS: ASPirin 81 mg TAB PO SCH (10:00)
[2021-09-29] MEDS: B-COMPLEX W/ C & FOLIC ACID(NEPHROVITE TAB) PO SCH (10:00)
[2021-09-29] MEDS ORDERED: SODIUM BICARBONATE 8.4 % INJ 50ML VIAL IV ONE ×2 (11:15→18:30)
[2021-09-29] MEDS ORDERED: FUROSEMIDE 40 MG/4 ML VIAL IV ONE (11:30)
[2021-09-29] MEDS ORDERED: CLINDAMYCIN 300MG IV 50 ML IV ONE (11:30)
[2021-09-29] MEDS ORDERED: CEFEPIME 2 GM in SODIUM CHL 0.9% 50 ML IV ONE (11:30)
[2021-09-29] MEDS ORDERED: SODIUM ZIRCONIUM CYCL 10 GM PAK PO ONE (11:30)
[2021-09-29] MEDS ORDERED: MORPHINE SULFATE INJ 2 MG/ml SYRG IV ONE (11:45)
[2021-09-29] MEDS: SODIUM BICARBONATE 50ML VIAL 150 ML in D5W 5% 1,000 ML IV SCH ×2 (11:52→23:13)
[2021-09-29 12:31] LABS: Alcohol, Urine < 3.0 mg/dL (0-10); Barbiturate Scree,Urine NEGATIVE (NEGATIVE); Benzodiazephine Screen, Urine NEGATIVE (NEGATIVE); Cannabinoid Screen, Urine NEGATIVE (NEGATIVE); Cocaine Screen, Urine NEGATIVE (NEGATIVE); Opiate Scree,Urine NEGATIVE (NEGATIVE); Phencyclidine Screen, Urine NEGATIVE (NEGATIVE)
[2021-09-29 12:39] LABS: Amphetamine Screen, Urine NEGATIVE (NEGATIVE)
[2021-09-29 12:40] LABS: Urine Bacteria FEW /hpf (None Seen); Urine Blood 3+ /uL (Negative); Urine WBC 3 /hpf (0 - 3)
[2021-09-29] MEDS: NOREPINEPHRINE 8 MG/250ML KIT 250 ML IV SCH (15:26)
[2021-09-29] MEDS: CLINDAMYCIN 300MG IV 50 ML IV SCH ×2 (16:56→21:31)
[2021-09-29] MEDS: SODIUM ZIRCONIUM CYCL 10 GM PAK PO SCH ×2 (17:35→23:13)
[2021-09-29 17:37] LABS: Basophils # (auto) 0 10 ^3/uL (0-0.2); Eosinophils # (auto) 0 10 ^3/uL (0-0.8); Hemoglobin 7.8 g/dL (13.5-17.5); Lymphocytes # (auto) 1.2 10 ^3/uL (0.4-5.4); Monocytes # (auto) 0.2 10 ^3/uL (0-1.3); Nucleated Red Blood Cells % 0.1 %
[2021-09-29 17:39] LABS: Basophils % (auto) 0.4 % (0.0-2.0); Eosinophils % (auto) 0.6 % (0.0-7.0); Hematocrit 23.8 % (41.0-53.0); Lymphocytes % (auto) 18.9 % (10.0-50.0); Mean Corpuscular Hemoglobin 28.6 pg (28.0-32.0); Mean Corpuscular Hgb Conc. 32.8 g/dL (32.0-36.0); Mean Corpuscular Volume 87.4 fL (80.0-100.0); Monocytes % (auto) 2.8 % (0.0-12.0); Neutrophils % (auto) 77.3 % (37.0-80.0); Red Blood Cells 2.72 10^6/uL (4.5-5.90); Red Cell Distribution Width 14.3 % (11.8-14.3); White Blood Cell 6.4 10^3/uL (4.4-10.8)
[2021-09-29 18:09] LABS: Albumin 2.3 g/dL (3.4-5.0); Magnesium 1.7 mg/dL (1.6-2.6); Potassium 5.4 mmol/L (3.5-5.1)
[2021-09-29 18:12] LABS: BUN/Creatinine Ratio 4.8; Bilirubin, Total 0.3 mg/dL (0.2-1.0); Total Protein 5.3 g/dL (6.4-8.2)
[2021-09-29 18:21] LABS: Calcium 5.9 mg/dL (8.5-10.1)
[2021-09-29] MEDS: MORPHINE SULFATE INJ 2 MG/ml SYRG IV PRN (21:52)
[2021-09-29] MEDS ORDERED: InsuLIN REG 1unit/0.01ml Soln (100units/ml) SC SCH (22:00)
[2021-09-30] VITALS (74 sets, daily range): BP systolic 84–144; BP diastolic 36–78
[2021-09-30 00:17] LABS: Basophils # (auto) 0 10 ^3/uL (0-0.2); Eosinophils # (auto) 0.1 10 ^3/uL (0-0.8); Lymphocytes # (auto) 0.8 10 ^3/uL (0.4-5.4); Mean Corpuscular Hemoglobin 28.7 pg (28.0-32.0); Mean Corpuscular Hgb Conc. 33.8 g/dL (32.0-36.0); Monocytes # (auto) 0.2 10 ^3/uL (0-1.3)
[2021-09-30 00:18] LABS: Protein, Urine 28.9 mg/dL (0.0-11.9)
[2021-09-30 00:19] LABS: Basophils % (auto) 0.4 % (0.0-2.0); Hematocrit 20.7 % (41.0-53.0); Mean Corpuscular Volume 84.9 fL (80.0-100.0); Monocytes % (auto) 3.6 % (0.0-12.0); Neutrophils # (auto) 4.8 10 ^3/uL (1.6-8.6); Red Blood Cells 2.44 10^6/uL (4.5-5.90); Red Cell Distribution Width 14.2 % (11.8-14.3); White Blood Cell 5.9 10^3/uL (4.4-10.8)
[2021-09-30 00:23] LABS: Urine Bacteria FEW /hpf (None Seen); Urine Blood 3+ /uL (Negative); Urine Hyaline Cast FEW /lpf (0 - 2); Urine Mucus FEW (None Seen); Urine Specific Gravity 1.009 (1.001-1.035); Urine WBC 8 /hpf (0 - 3)
[2021-09-30 00:33] LABS: Albumin 2.2 g/dL (3.4-5.0); Magnesium 1.4 mg/dL (1.6-2.6); Potassium 4.8 mmol/L (3.5-5.1)
[2021-09-30 00:36] LABS: Lactic Acid w/Reflex 2.6 mmol/L (0.4-2.0)
[2021-09-30 00:37] LABS: BUN/Creatinine Ratio 4.9; Bilirubin, Total 0.3 mg/dL (0.2-1.0); Total Protein 5.4 g/dL (6.4-8.2)
[2021-09-30 00:39] LABS: Calcium 5.8 mg/dL (8.5-10.1)
[2021-09-30] MEDS ORDERED: CALCIUM GLUC 1,000mg/50ml-NS 50 ML IV ONE (01:30)
[2021-09-30] MEDS: MAGNESIUM SULFATE 1GM/100ML 100 ML IV SCH ×2 (01:57→03:23)
[2021-09-30] MEDS: SODIUM CHLOR 0.9% PF (SALINE LOCK) 10ML VIAL/SYR IV SCH ×3 (05:17→21:40)
[2021-09-30] MEDS: CLINDAMYCIN 300MG IV 50 ML IV SCH (05:17)
[2021-09-30] MEDS: InsuLIN REG 1unit/0.01ml Soln (100units/ml) SC SCH ×4 (05:24→23:41)
[2021-09-30] MEDS: ACCU-CHEK COMFORT CURVE STRIP VI SCH ×5 (05:24→23:41)
[2021-09-30] MEDS: SODIUM ZIRCONIUM CYCL 10 GM PAK PO SCH (05:57)
[2021-09-30 06:50] LABS: Basophils # (auto) 0 10 ^3/uL (0-0.2); Basophils % (auto) 0.5 % (0.0-2.0); Eosinophils # (auto) 0.1 10 ^3/uL (0-0.8); Eosinophils % (auto) 1.5 % (0.0-7.0); Hematocrit 18.5 % (41.0-53.0); Lymphocytes # (auto) 1.1 10 ^3/uL (0.4-5.4); Lymphocytes % (auto) 20.6 % (10.0-50.0); Mean Corpuscular Hemoglobin 30.1 pg (28.0-32.0); Mean Corpuscular Hgb Conc. 35.8 g/dL (32.0-36.0); Mean Corpuscular Volume 84.1 fL (80.0-100.0); Monocytes # (auto) 0.2 10 ^3/uL (0-1.3); Monocytes % (auto) 4.3 % (0.0-12.0); Neutrophils % (auto) 73.1 % (37.0-80.0); Nucleated Red Blood Cells % 0.1 %; Red Blood Cells 2.19 10^6/uL (4.5-5.90); Red Cell Distribution Width 14.3 % (11.8-14.3); White Blood Cell 5.4 10^3/uL (4.4-10.8)
[2021-09-30 07:00] LABS: Hemoglobin 6.6 g/dL (13.5-17.5)
[2021-09-30 07:05] LABS: Potassium 4.9 mmol/L (3.5-5.1)
[2021-09-30 07:13] LABS: Albumin 2.1 g/dL (3.4-5.0); BUN/Creatinine Ratio 4.6; Bilirubin, Total 0.3 mg/dL (0.2-1.0); Total Protein 5.1 g/dL (6.4-8.2)
[2021-09-30 07:41] LABS: Calcium 5.9 mg/dL (8.5-10.1)
[2021-09-30] MEDS: ASPirin 81 mg TAB PO SCH (10:00)
[2021-09-30] MEDS: B-COMPLEX W/ C & FOLIC ACID(NEPHROVITE TAB) PO SCH (10:00)
[2021-09-30] MEDS ORDERED: CEFEPIME 2 GM in SODIUM CHL 0.9% 50 ML IV SCH (12:00)
[2021-09-30] MEDS: METHADONE HCL 10 MG TAB PO SCH (13:14)
[2021-09-30] MEDS: NOREPINEPHRINE 8 MG/250ML KIT 250 ML IV SCH (14:12)
[2021-09-30] MEDS ORDERED: FUROSEMIDE 40 MG/4 ML VIAL IV ONE (14:45)
[2021-09-30] MEDS: LINEZOLID 600MG/300ML 300 ML IV SCH (15:53)
[2021-09-30] MEDS: SODIUM CHLORIDE 0.9% 1,000 ML IV SCH ×2 (15:56→23:38)
[2021-09-30 16:25] LABS: Basophils # (auto) 0 10 ^3/uL (0-0.2); Basophils % (auto) 0.4 % (0.0-2.0); Eosinophils # (auto) 0.1 10 ^3/uL (0-0.8); Eosinophils % (auto) 1.4 % (0.0-7.0); Hematocrit 28.2 % (41.0-53.0); Hemoglobin 9.5 g/dL (13.5-17.5); Lymphocytes # (auto) 1.5 10 ^3/uL (0.4-5.4); Lymphocytes % (auto) 21.7 % (10.0-50.0); Mean Corpuscular Hemoglobin 28.8 pg (28.0-32.0); Mean Corpuscular Hgb Conc. 33.7 g/dL (32.0-36.0); Mean Corpuscular Volume 85.6 fL (80.0-100.0); Monocytes # (auto) 0.3 10 ^3/uL (0-1.3); Monocytes % (auto) 4.5 % (0.0-12.0); Neutrophils # (auto) 4.8 10 ^3/uL (1.6-8.6); Nucleated Red Blood Cells % 0.1 %; Red Cell Distribution Width 14.8 % (11.8-14.3); White Blood Cell 6.7 10^3/uL (4.4-10.8)
[2021-09-30 16:40] LABS: INR 1.4 (0.9-1.15)
[2021-09-30] MEDS: MORPHINE SULFATE INJ 2 MG/ml SYRG IV PRN (18:11)
[2021-09-30] MEDS: MEROPENEM 500MG IVPB 50 ML IV SCH (18:11)
[2021-09-30] MEDS: PANTOPRAZOLE 40 MG/10 ML VIAL INJ IV SCH (21:40)
[2021-10-01] VITALS (37 sets, daily range): BP systolic 113–153; BP diastolic 50–78
[2021-10-01] MEDS: LINEZOLID 600MG/300ML 300 ML IV SCH ×2 (03:19→14:21)
[2021-10-01 04:31] LABS: Basophils # (auto) 0 10 ^3/uL (0-0.2); Basophils % (auto) 0.7 % (0.0-2.0); Eosinophils # (auto) 0.1 10 ^3/uL (0-0.8); Eosinophils % (auto) 1.7 % (0.0-7.0); Hematocrit 27.4 % (41.0-53.0); Hemoglobin 9.4 g/dL (13.5-17.5); Lymphocytes # (auto) 1.5 10 ^3/uL (0.4-5.4); Lymphocytes % (auto) 26.8 % (10.0-50.0); Mean Corpuscular Hemoglobin 29.2 pg (28.0-32.0); Mean Corpuscular Hgb Conc. 34.5 g/dL (32.0-36.0); Mean Corpuscular Volume 84.7 fL (80.0-100.0); Monocytes # (auto) 0.2 10 ^3/uL (0-1.3); Monocytes % (auto) 4.1 % (0.0-12.0); Neutrophils # (auto) 3.8 10 ^3/uL (1.6-8.6); Neutrophils % (auto) 66.7 % (37.0-80.0); Red Blood Cells 3.23 10^6/uL (4.5-5.90); Red Cell Distribution Width 14.9 % (11.8-14.3); White Blood Cell 5.6 10^3/uL (4.4-10.8)
[2021-10-01 04:41] LABS: BUN/Creatinine Ratio 4.7
[2021-10-01 04:45] LABS: Calcium 5.7 mg/dL (8.5-10.1); Potassium 6.1 mmol/L (3.5-5.1)
[2021-10-01] MEDS: ONDANSETRON HCL 4 MG/2 ML VIAL IV PRN ×2 (05:10→14:21)
[2021-10-01] MEDS: MORPHINE SULFATE INJ 2 MG/ml SYRG IV PRN ×3 (05:54→23:23)
[2021-10-01] MEDS: ACCU-CHEK COMFORT CURVE STRIP VI SCH ×4 (05:59→23:20)
[2021-10-01] MEDS: SODIUM CHLOR 0.9% PF (SALINE LOCK) 10ML VIAL/SYR IV SCH ×3 (05:59→22:53)
[2021-10-01] MEDS: InsuLIN REG 1unit/0.01ml Soln (100units/ml) SC SCH ×4 (05:59→23:20)
[2021-10-01] MEDS ORDERED: InsuLIN REG 1unit/0.01ml Soln (100units/ml) IV ONE (07:00)
[2021-10-01] MEDS ORDERED: CALCIUM GLUC 1,000mg/50ml-NS 50 ML IV ONE (07:00)
[2021-10-01] MEDS ORDERED: DEXTROSE (50%) 50ML SYRG IV ONE (07:00)
[2021-10-01] MEDS ORDERED: FUROSEMIDE 40 MG/4 ML VIAL IV ONE (08:30)
[2021-10-01] MEDS: B-COMPLEX W/ C & FOLIC ACID(NEPHROVITE TAB) PO SCH (09:28)
[2021-10-01] MEDS: ASPirin 81 mg TAB PO SCH (09:28)
[2021-10-01] MEDS: METHADONE HCL 10 MG TAB PO SCH (09:30)
[2021-10-01] MEDS: PANTOPRAZOLE 40 MG/10 ML VIAL INJ IV SCH ×2 (09:30→22:53)
[2021-10-01] MEDS: SODIUM CHLORIDE 0.9% 1,000 ML IV SCH ×2 (11:21→22:54)
[2021-10-01] MEDS: CALCIUM ACETATE 667 MG CAP PO SCH ×2 (12:29→17:59)
[2021-10-01] MEDS: NOREPINEPHRINE 8 MG/250ML KIT 250 ML IV SCH (14:30)
[2021-10-01 15:52] LABS: Alanine Aminotransferase < 6 U/L (16-61); Alkaline Phosphatase 225 U/L (45-117); Anion Gap 13 (5-15); Aspartate Aminotransferase 12 U/L (15-37); BUN/Creatinine Ratio 4.6; Bilirubin, Total 0.3 mg/dL (0.2-1.0); Blood Urea Nitrogen 43 mg/dL (7-18); Carbon Dioxide 21 mmol/L (21-32); Chloride 107 mmol/L (98-107); GFR African American 8 mL/min; GFR Non-African American 6 mL/min; Glucose 135 mg/dL (74-106); Sodium 141 mmol/L (136-145)
[2021-10-01 15:53] LABS: Albumin 1.9 g/dL (3.4-5.0); Total Protein 4.9 g/dL (6.4-8.2)
[2021-10-01 15:56] LABS: Calcium 5.5 mg/dL (8.5-10.1)
[2021-10-01] MEDS ORDERED: CALCIUM CHL 100MG/ML 1,000 MG in D5W 5% 100 ML IV ONE (16:15)
[2021-10-01] MEDS: MEROPENEM 500MG IVPB 50 ML IV SCH (17:51)
[2021-10-01] MEDS: SODIUM ZIRCONIUM CYCL 10 GM PAK PO SCH (22:53)
[2021-10-01] MEDS: clonazePAM 0.5 MG TAB PO PRN (23:23)
[2021-10-02] MEDS: LINEZOLID 600MG/300ML 300 ML IV SCH (02:46)
[2021-10-02 05:00] VITALS: BP 119/69
[2021-10-02] MEDS: ACCU-CHEK COMFORT CURVE STRIP VI SCH ×4 (05:50→23:50)
[2021-10-02] MEDS: SODIUM CHLOR 0.9% PF (SALINE LOCK) 10ML VIAL/SYR IV SCH ×3 (05:50→21:47)
[2021-10-02] MEDS: InsuLIN REG 1unit/0.01ml Soln (100units/ml) SC SCH ×4 (05:51→23:52)
[2021-10-02 05:56] LABS: Basophils # (auto) 0 10 ^3/uL (0-0.2); Basophils % (auto) 0.7 % (0.0-2.0); Eosinophils # (auto) 0.2 10 ^3/uL (0-0.8); Eosinophils % (auto) 3.6 % (0.0-7.0); Hematocrit 29.7 % (41.0-53.0); Hemoglobin 10.1 g/dL (13.5-17.5); Lymphocytes # (auto) 1.9 10 ^3/uL (0.4-5.4); Lymphocytes % (auto) 31.8 % (10.0-50.0); Mean Corpuscular Hemoglobin 29.1 pg (28.0-32.0); Mean Corpuscular Hgb Conc. 34.2 g/dL (32.0-36.0); Mean Corpuscular Volume 85.2 fL (80.0-100.0); Monocytes # (auto) 0.3 10 ^3/uL (0-1.3); Monocytes % (auto) 4.4 % (0.0-12.0); Neutrophils # (auto) 3.5 10 ^3/uL (1.6-8.6); Neutrophils % (auto) 59.5 % (37.0-80.0); Nucleated Red Blood Cells % 0.2 %; Red Blood Cells 3.48 10^6/uL (4.5-5.90); Red Cell Distribution Width 14.9 % (11.8-14.3); White Blood Cell 5.9 10^3/uL (4.4-10.8)
[2021-10-02 06:02] LABS: BUN/Creatinine Ratio 4.2; Calcium 6.9 mg/dL (8.5-10.1); Potassium 4.8 mmol/L (3.5-5.1)
[2021-10-02] MEDS: SODIUM CHLORIDE 0.9% 1,000 ML IV SCH ×2 (06:30→17:13)
[2021-10-02 09:00] VITALS: BP 116/71
[2021-10-02] MEDS: CALCIUM ACETATE 667 MG CAP PO SCH ×3 (10:51→17:41)
[2021-10-02] MEDS: ASPirin 81 mg TAB PO SCH (10:51)
[2021-10-02] MEDS: PANTOPRAZOLE 40 MG/10 ML VIAL INJ IV SCH ×2 (10:51→21:47)
[2021-10-02] MEDS: SODIUM ZIRCONIUM CYCL 10 GM PAK PO SCH ×2 (10:52→21:48)
[2021-10-02] MEDS: B-COMPLEX W/ C & FOLIC ACID(NEPHROVITE TAB) PO SCH (10:52)
[2021-10-02] MEDS: METHADONE HCL 10 MG TAB PO SCH (10:53)
[2021-10-02] MEDS: MORPHINE SULFATE INJ 2 MG/ml SYRG IV PRN ×2 (12:14→20:15)
[2021-10-02 13:00] VITALS: BP 111/52
[2021-10-02] MEDS ORDERED: DOXYCYCLINE 100 MG TAB/CAP PO ONE (15:30)
[2021-10-02 16:56] VITALS: BP 133/55
[2021-10-02] MEDS: HYDROcodone-ACET 5/325MG TAB PO PRN (17:41)
[2021-10-02] MEDS ORDERED: LORazepam 2MG/ML-1ML VIAL IV PRN ×2 (20:30)
[2021-10-02] MEDS: DOXYCYCLINE 100 MG TAB/CAP PO SCH (21:48)
[2021-10-02] MEDS: clonazePAM 0.5 MG TAB PO PRN (21:48)
[2021-10-02 22:00] VITALS: BP 120/59
[2021-10-03] MEDS: SODIUM CHLORIDE 0.9% 1,000 ML IV SCH ×3 (03:49→22:51)
[2021-10-03 05:32] VITALS: BP 114/78
[2021-10-03] MEDS: ACCU-CHEK COMFORT CURVE STRIP VI SCH ×4 (06:34→23:53)
[2021-10-03] MEDS: SODIUM CHLOR 0.9% PF (SALINE LOCK) 10ML VIAL/SYR IV SCH ×3 (06:35→21:56)
[2021-10-03] MEDS: InsuLIN REG 1unit/0.01ml Soln (100units/ml) SC SCH ×4 (06:36→23:55)
[2021-10-03 06:50] LABS: BUN/Creatinine Ratio 3.9; Calcium 6.5 mg/dL (8.5-10.1); Potassium 4.9 mmol/L (3.5-5.1)
[2021-10-03 09:00] VITALS: BP 104/56
[2021-10-03] MEDS: CALCIUM ACETATE 667 MG CAP PO SCH ×3 (10:51→18:48)
[2021-10-03] MEDS: PANTOPRAZOLE 40 MG/10 ML VIAL INJ IV SCH ×2 (10:51→21:56)
[2021-10-03] MEDS: cefTRIAXone 1GM/50ML D5W 50 ML IV SCH (10:51)
[2021-10-03] MEDS: ASPirin 81 mg TAB PO SCH (10:54)
[2021-10-03] MEDS: METHADONE HCL 10 MG TAB PO SCH (10:55)
[2021-10-03] MEDS: SODIUM ZIRCONIUM CYCL 10 GM PAK PO SCH ×2 (10:55→21:56)
[2021-10-03] MEDS: B-COMPLEX W/ C & FOLIC ACID(NEPHROVITE TAB) PO SCH (10:56)
[2021-10-03] MEDS: DOXYCYCLINE 100 MG TAB/CAP PO SCH ×2 (10:56→21:57)
[2021-10-03 13:00] VITALS: BP 98/57
[2021-10-03] MEDS: MORPHINE SULFATE INJ 2 MG/ml SYRG IV PRN ×2 (13:00→20:09)
[2021-10-03 15:14] LABS: Basophils # (auto) 0 10 ^3/uL (0-0.2); Basophils % (auto) 0.6 % (0.0-2.0); Eosinophils # (auto) 0.2 10 ^3/uL (0-0.8); Eosinophils % (auto) 2.8 % (0.0-7.0); Lymphocytes # (auto) 1.8 10 ^3/uL (0.4-5.4); Lymphocytes % (auto) 24.4 % (10.0-50.0); Mean Corpuscular Hemoglobin 28.9 pg (28.0-32.0); Mean Corpuscular Hgb Conc. 33.4 g/dL (32.0-36.0); Mean Corpuscular Volume 86.8 fL (80.0-100.0); Monocytes # (auto) 0.2 10 ^3/uL (0-1.3); Monocytes % (auto) 3.2 % (0.0-12.0); Neutrophils # (auto) 5.2 10 ^3/uL (1.6-8.6); Nucleated Red Blood Cells % 0.1 %; Red Blood Cells 3.46 10^6/uL (4.5-5.90); White Blood Cell 7.5 10^3/uL (4.4-10.8)
[2021-10-03 15:25] LABS: INR 1.37 (0.9-1.15); Partial Thromboplastin Time 31.2 sec (24.6-33.4)
[2021-10-03 16:46] VITALS: BP 119/65
[2021-10-03 20:00] VITALS: BP 138/63
[2021-10-03] MEDS: clonazePAM 0.5 MG TAB PO PRN (21:58)
[2021-10-03 22:00] VITALS: BP 138/63
[2021-10-04 04:57] VITALS: BP 136/76
[2021-10-04] MEDS: InsuLIN REG 1unit/0.01ml Soln (100units/ml) SC SCH ×3 (06:00→18:00)
[2021-10-04] MEDS: SODIUM CHLOR 0.9% PF (SALINE LOCK) 10ML VIAL/SYR IV SCH ×3 (06:04→21:35)
[2021-10-04] MEDS: ACCU-CHEK COMFORT CURVE STRIP VI SCH ×3 (06:04→21:32)
[2021-10-04 06:05] LABS: Calcium 7.1 mg/dL (8.5-10.1); Potassium 4.5 mmol/L (3.5-5.1)
[2021-10-04 08:00] VITALS: BP 130/63
[2021-10-04] MEDS ORDERED: SODIUM CHL 0.9% 1000 ML BAG XX ONE (08:00)
[2021-10-04] MEDS: CALCIUM ACETATE 667 MG CAP PO SCH ×3 (08:00→21:32)
[2021-10-04 09:00] VITALS: BP 123/63
[2021-10-04] MEDS ORDERED: MIDAZOLAM HCL 2MG/2ML 2ml VIAL (1mg/ml) ONE (12:20)
[2021-10-04] MEDS ORDERED: HEPARIN SODIUM (PORCINE) 5000 UNITS/ML 1ML VIAL ONE (12:20)
[2021-10-04] MEDS ORDERED: fentaNYL CITRATE 100 MCG/2 ML VL ONE (12:20)
[2021-10-04] MEDS ORDERED: LIDOCAINE 2%HCL (LOCAL ANESTH.) INJ 10ml MDV ONE (12:21)
[2021-10-04] MEDS: MORPHINE SULFATE INJ 2 MG/ml SYRG IV PRN ×2 (13:57→19:46)
[2021-10-04] MEDS: HYDROcodone-ACET 5/325MG TAB PO PRN (15:56)
[2021-10-04] MEDS: SODIUM CHLORIDE 0.9% 1,000 ML IV SCH ×2 (16:26→21:33)
[2021-10-04] MEDS: cefTRIAXone 1GM/50ML D5W 50 ML IV SCH (16:26)
[2021-10-04] MEDS: METHADONE HCL 10 MG TAB PO SCH (16:27)
[2021-10-04] MEDS: PANTOPRAZOLE 40 MG/10 ML VIAL INJ IV SCH ×2 (16:27→21:35)
[2021-10-04] MEDS: ASPirin 81 mg TAB PO SCH (16:27)
[2021-10-04] MEDS: B-COMPLEX W/ C & FOLIC ACID(NEPHROVITE TAB) PO SCH (16:28)
[2021-10-04] MEDS: ONDANSETRON HCL 4 MG/2 ML VIAL IV PRN (19:47)
[2021-10-04 20:00] VITALS: BP 136/68
[2021-10-04] MEDS ORDERED: EPOETIN ALFA-EPBX 10,000 UNIT/1ML VIAL SC ONE (21:00)
[2021-10-04] MEDS: clonazePAM 0.5 MG TAB PO PRN (21:32)
[2021-10-04 21:46] VITALS: BP 124/57
[2021-10-05] MEDS: MORPHINE SULFATE INJ 2 MG/ml SYRG IV PRN ×4 (01:31→22:29)
[2021-10-05 05:00] VITALS: BP 111/56
[2021-10-05] MEDS: SODIUM CHLORIDE 0.9% 1,000 ML IV SCH (05:51)
[2021-10-05] MEDS: SODIUM CHLOR 0.9% PF (SALINE LOCK) 10ML VIAL/SYR IV SCH ×3 (05:52→22:28)
[2021-10-05 05:54] LABS: BUN/Creatinine Ratio 4.2; Calcium 7.5 mg/dL (8.5-10.1); Potassium 4.6 mmol/L (3.5-5.1)
[2021-10-05] MEDS: ACCU-CHEK COMFORT CURVE STRIP VI SCH ×4 (06:18→17:18)
[2021-10-05] MEDS: InsuLIN REG 1unit/0.01ml Soln (100units/ml) SC SCH ×4 (06:20→17:19)
[2021-10-05] MEDS: CALCIUM ACETATE 667 MG CAP PO SCH ×3 (07:52→17:20)
[2021-10-05 08:00] VITALS: BP 136/68
[2021-10-05 08:30] VITALS: BP 114/61
[2021-10-05] MEDS: cefTRIAXone 1GM/50ML D5W 50 ML IV SCH (08:45)
[2021-10-05] MEDS: PANTOPRAZOLE 40 MG/10 ML VIAL INJ IV SCH ×2 (10:54→22:28)
[2021-10-05] MEDS: ASPirin 81 mg TAB PO SCH (10:54)
[2021-10-05] MEDS: METHADONE HCL 10 MG TAB PO SCH (10:55)
[2021-10-05] MEDS: B-COMPLEX W/ C & FOLIC ACID(NEPHROVITE TAB) PO SCH (10:55)
[2021-10-05] MEDS ORDERED: NICOTINE 14 MG/24HR TOPICAL PATCH TD ONE (11:45)
[2021-10-05 12:25] VITALS: BP 127/67
[2021-10-05] MEDS ORDERED: SODIUM CHL 0.9% 1000 ML BAG XX ONE (12:45)
[2021-10-05 14:17] LABS: Hepatitis A Ab IgM Negative
[2021-10-05 14:20] LABS: Hepatitis B Core IgM Negative
[2021-10-05 14:22] LABS: Hepatitis C Antibody Negative (Negative)
[2021-10-05 16:20] VITALS: BP 124/73
[2021-10-05] MEDS ORDERED: EPOETIN ALFA-EPBX 10,000 UNIT/1ML VIAL SC ONE (21:00)
[2021-10-05] MEDS: SODIUM ZIRCONIUM CYCL 10 GM PAK PO SCH (22:28)
[2021-10-05 22:38] VITALS: BP 142/71
[2021-10-06] MEDS: ACCU-CHEK COMFORT CURVE STRIP VI SCH ×4 (00:20→18:00)
[2021-10-06] MEDS: InsuLIN REG 1unit/0.01ml Soln (100units/ml) SC SCH ×4 (00:24→18:00)
[2021-10-06] MEDS: clonazePAM 0.5 MG TAB PO PRN ×2 (00:24→21:43)
[2021-10-06] MEDS: SODIUM CHLORIDE 0.9% 1,000 ML IV SCH ×3 (00:35→20:30)
[2021-10-06 05:11] VITALS: BP 129/72
[2021-10-06] MEDS: SODIUM CHLOR 0.9% PF (SALINE LOCK) 10ML VIAL/SYR IV SCH ×3 (05:47→21:42)
[2021-10-06] MEDS: MORPHINE SULFATE INJ 2 MG/ml SYRG IV PRN ×3 (05:51→18:12)
[2021-10-06 06:47] LABS: BUN/Creatinine Ratio 3.7; Calcium 7.5 mg/dL (8.5-10.1); Potassium 4.2 mmol/L (3.5-5.1)
[2021-10-06] MEDS: CALCIUM ACETATE 667 MG CAP PO SCH ×3 (08:32→18:00)
[2021-10-06] MEDS: cefTRIAXone 1GM/50ML D5W 50 ML IV SCH (08:33)
[2021-10-06 09:00] VITALS: BP 171/51
[2021-10-06] MEDS: NICOTINE 14 MG/24HR TOPICAL PATCH TD SCH (10:00)
[2021-10-06] MEDS: PANTOPRAZOLE 40 MG/10 ML VIAL INJ IV SCH ×2 (10:23→21:42)
[2021-10-06] MEDS: B-COMPLEX W/ C & FOLIC ACID(NEPHROVITE TAB) PO SCH (10:23)
[2021-10-06] MEDS: ASPirin 81 mg TAB PO SCH (10:23)
[2021-10-06] MEDS: METHADONE HCL 10 MG TAB PO SCH (10:23)
[2021-10-06] MEDS: SODIUM ZIRCONIUM CYCL 10 GM PAK PO SCH (10:23)
[2021-10-06 13:00] VITALS: BP 119/56
[2021-10-06] MEDS ORDERED: amLODIPine BESYLATE 5 MG TAB PO ONE (14:30)
[2021-10-06] MEDS: HYDROcodone-ACET 5/325MG TAB PO PRN (14:48)
[2021-10-06 17:05] VITALS: BP 142/77
[2021-10-06 22:00] VITALS: BP 136/81
[2021-10-07] MEDS: MORPHINE SULFATE INJ 2 MG/ml SYRG IV PRN ×4 (00:18→22:21)
[2021-10-07] MEDS: ACCU-CHEK COMFORT CURVE STRIP VI SCH ×4 (00:23→16:54)
[2021-10-07 05:00] VITALS: BP 156/76
[2021-10-07] MEDS: InsuLIN REG 1unit/0.01ml Soln (100units/ml) SC SCH ×4 (06:00→16:53)
[2021-10-07] MEDS: SODIUM CHLOR 0.9% PF (SALINE LOCK) 10ML VIAL/SYR IV SCH ×3 (06:16→22:00)
[2021-10-07 06:27] LABS: BUN/Creatinine Ratio 3.1
[2021-10-07] MEDS: SODIUM CHLORIDE 0.9% 1,000 ML IV SCH ×2 (06:52→16:30)
[2021-10-07 08:00] VITALS: BP 130/70
[2021-10-07] MEDS: CALCIUM ACETATE 667 MG CAP PO SCH ×3 (08:33→18:00)
[2021-10-07] MEDS: cefTRIAXone 1GM/50ML D5W 50 ML IV SCH (08:34)
[2021-10-07 09:00] VITALS: BP 135/73
[2021-10-07] MEDS: NICOTINE 14 MG/24HR TOPICAL PATCH TD SCH (10:00)
[2021-10-07] MEDS: PANTOPRAZOLE 40 MG/10 ML VIAL INJ IV SCH ×2 (10:05→21:59)
[2021-10-07] MEDS: ASPirin 81 mg TAB PO SCH (10:05)
[2021-10-07] MEDS: METHADONE HCL 10 MG TAB PO SCH (10:06)
[2021-10-07] MEDS: B-COMPLEX W/ C & FOLIC ACID(NEPHROVITE TAB) PO SCH (10:06)
[2021-10-07] MEDS: amLODIPine BESYLATE 5 MG TAB PO SCH (10:07)
[2021-10-07 13:00] VITALS: BP 123/57
[2021-10-07 17:00] VITALS: BP 137/65
[2021-10-07 22:00] VITALS: BP 165/75
[2021-10-08] MEDS: ACCU-CHEK COMFORT CURVE STRIP VI SCH ×5 (00:27→16:44)
[2021-10-08] MEDS: SODIUM CHLORIDE 0.9% 1,000 ML IV SCH ×3 (02:30→22:30)
[2021-10-08 05:00] VITALS: BP 165/68
[2021-10-08] MEDS: SODIUM CHLOR 0.9% PF (SALINE LOCK) 10ML VIAL/SYR IV SCH ×3 (05:35→20:54)
[2021-10-08] MEDS: InsuLIN REG 1unit/0.01ml Soln (100units/ml) SC SCH ×3 (05:59→11:05)
[2021-10-08] MEDS: CALCIUM ACETATE 667 MG CAP PO SCH ×2 (08:00→12:00)
[2021-10-08] MEDS: ASPirin 81 mg TAB PO SCH (10:00)
[2021-10-08] MEDS: amLODIPine BESYLATE 5 MG TAB PO SCH (10:00)
[2021-10-08] MEDS: NICOTINE 14 MG/24HR TOPICAL PATCH TD SCH (10:00)
[2021-10-08] MEDS: METHADONE HCL 10 MG TAB PO SCH ×2 (10:00→17:38)
[2021-10-08] MEDS: B-COMPLEX W/ C & FOLIC ACID(NEPHROVITE TAB) PO SCH (10:00)
[2021-10-08] MEDS: cefTRIAXone 1GM/50ML D5W 50 ML IV SCH (11:09)
[2021-10-08] MEDS: PANTOPRAZOLE 40 MG/10 ML VIAL INJ IV SCH ×2 (11:10→20:54)
[2021-10-08 11:53] LABS: BUN/Creatinine Ratio 3.5; Calcium 7.9 mg/dL (8.5-10.1)
[2021-10-08] MEDS: MORPHINE SULFATE INJ 2 MG/ml SYRG IV PRN ×2 (15:36→23:16)
[2021-10-08] MEDS: ONDANSETRON HCL 4 MG/2 ML VIAL IV PRN ×2 (15:59→23:16)
[2021-10-08 16:00] VITALS: BP 123/59
[2021-10-08 22:00] VITALS: BP 122/61
[2021-10-09] MEDS: ACCU-CHEK COMFORT CURVE STRIP VI SCH ×4 (00:30→17:50)
[2021-10-09] MEDS: InsuLIN REG 1unit/0.01ml Soln (100units/ml) SC SCH ×4 (00:31→17:50)
[2021-10-09] MEDS: MORPHINE SULFATE INJ 2 MG/ml SYRG IV PRN ×3 (02:58→21:28)
[2021-10-09 05:00] VITALS: BP 150/84
[2021-10-09] MEDS: SODIUM CHLOR 0.9% PF (SALINE LOCK) 10ML VIAL/SYR IV SCH ×2 (06:06→14:00)
[2021-10-09] MEDS ORDERED: SODIUM CHL 0.9% 1000 ML BAG XX ONE (06:45)
[2021-10-09 09:00] VITALS: BP 140/84
[2021-10-09] MEDS: CALCIUM ACETATE 667 MG CAP PO SCH ×4 (09:38→17:53)
[2021-10-09] MEDS: cefTRIAXone 1GM/50ML D5W 50 ML IV SCH (09:56)
[2021-10-09] MEDS: ASPirin 81 mg TAB PO SCH (09:56)
[2021-10-09] MEDS: B-COMPLEX W/ C & FOLIC ACID(NEPHROVITE TAB) PO SCH (09:56)
[2021-10-09] MEDS: NICOTINE 14 MG/24HR TOPICAL PATCH TD SCH (09:57)
[2021-10-09] MEDS: amLODIPine BESYLATE 5 MG TAB PO SCH (10:00)
[2021-10-09] MEDS: PANTOPRAZOLE 40 MG/10 ML VIAL INJ IV SCH ×2 (11:23→22:00)
[2021-10-09 13:00] VITALS: BP 99/48
[2021-10-09] MEDS: SODIUM CHLORIDE 0.9% 1,000 ML IV SCH (13:02)
[2021-10-09 13:18] LABS: Phosphorus 5.4 mg/dL (2.5-4.90)
[2021-10-09] MEDS: METHADONE HCL 10 MG TAB PO SCH (17:48)
[2021-10-09 20:00] VITALS: BP 135/73
[2021-10-09] MEDS ORDERED: EPOETIN ALFA-EPBX 4,000 UNIT/ML VIAL SC ONE (21:00)
[2021-10-09 22:00] VITALS: BP 110/53
[2021-10-10] MEDS: MORPHINE SULFATE INJ 2 MG/ml SYRG IV PRN ×4 (02:32→20:29)
[2021-10-10 05:00] VITALS: BP 137/60
[2021-10-10] MEDS: SODIUM CHLOR 0.9% PF (SALINE LOCK) 10ML VIAL/SYR IV SCH ×4 (05:25→20:28)
[2021-10-10] MEDS: InsuLIN REG 1unit/0.01ml Soln (100units/ml) SC SCH ×5 (06:00→23:17)
[2021-10-10] MEDS: ACCU-CHEK COMFORT CURVE STRIP VI SCH ×5 (06:00→23:04)
[2021-10-10 08:35] VITALS: BP 133/61
[2021-10-10] MEDS: CALCIUM ACETATE 667 MG CAP PO SCH ×3 (09:10→18:17)
[2021-10-10] MEDS: cefTRIAXone 1GM/50ML D5W 50 ML IV SCH (09:11)
[2021-10-10] MEDS: NICOTINE 14 MG/24HR TOPICAL PATCH TD SCH (10:00)
[2021-10-10] MEDS: ASPirin 81 mg TAB PO SCH (10:18)
[2021-10-10] MEDS: B-COMPLEX W/ C & FOLIC ACID(NEPHROVITE TAB) PO SCH (10:19)
[2021-10-10] MEDS: METHADONE HCL 10 MG TAB PO SCH (10:19)
[2021-10-10] MEDS: PANTOPRAZOLE 40 MG/10 ML VIAL INJ IV SCH ×2 (10:20→20:28)
[2021-10-10] MEDS: amLODIPine BESYLATE 5 MG TAB PO SCH (10:20)
[2021-10-10] MEDS: SODIUM CHLORIDE 0.9% 1,000 ML IV SCH (10:27)
[2021-10-10] MEDS ORDERED: ERGOCALCIFEROL 50,000 UNIT(1.25MG) CAP PO SCH (10:30)
[2021-10-10 12:35] VITALS: BP 120/61
[2021-10-10 16:30] VITALS: BP 108/49
[2021-10-10 22:00] VITALS: BP 116/45
[2021-10-10] MEDS: clonazePAM 0.5 MG TAB PO PRN (23:05)
[2021-10-11] VITALS (7 sets, daily range): BP systolic 96–167; BP diastolic 42–95
[2021-10-11] MEDS: SODIUM CHLOR 0.9% PF (SALINE LOCK) 10ML VIAL/SYR IV SCH ×3 (05:30→22:08)
[2021-10-11] MEDS: ACCU-CHEK COMFORT CURVE STRIP VI SCH ×3 (05:30→18:00)
[2021-10-11] MEDS: MORPHINE SULFATE INJ 2 MG/ml SYRG IV PRN ×3 (05:32→21:11)
[2021-10-11] MEDS: InsuLIN REG 1unit/0.01ml Soln (100units/ml) SC SCH ×3 (05:48→18:00)
[2021-10-11 06:25] LABS: Basophils # (auto) 0.1 10 ^3/uL (0-0.2); Basophils % (auto) 1.1 % (0.0-2.0); Eosinophils # (auto) 0.1 10 ^3/uL (0-0.8); Eosinophils % (auto) 2.2 % (0.0-7.0); Hematocrit 27.3 % (41.0-53.0); Hemoglobin 9.1 g/dL (13.5-17.5); Lymphocytes # (auto) 2.5 10 ^3/uL (0.4-5.4); Lymphocytes % (auto) 37.6 % (10.0-50.0); Mean Corpuscular Hemoglobin 29.4 pg (28.0-32.0); Mean Corpuscular Hgb Conc. 33.2 g/dL (32.0-36.0); Mean Corpuscular Volume 88.4 fL (80.0-100.0); Monocytes # (auto) 0.4 10 ^3/uL (0-1.3); Monocytes % (auto) 5.4 % (0.0-12.0); Neutrophils # (auto) 3.6 10 ^3/uL (1.6-8.6); Neutrophils % (auto) 53.7 % (37.0-80.0); Red Blood Cells 3.09 10^6/uL (4.5-5.90); Red Cell Distribution Width 14.7 % (11.8-14.3); White Blood Cell 6.7 10^3/uL (4.4-10.8)
[2021-10-11 06:37] LABS: BUN/Creatinine Ratio 2.9; Calcium 7.8 mg/dL (8.5-10.1); Potassium 4.2 mmol/L (3.5-5.1)
[2021-10-11] MEDS ORDERED: SODIUM CHL 0.9% 1000 ML BAG XX ONE (07:00)
[2021-10-11] MEDS: CALCIUM ACETATE 667 MG CAP PO SCH ×3 (08:00→18:00)
[2021-10-11] MEDS: cefTRIAXone 1GM/50ML D5W 50 ML IV SCH (09:32)
[2021-10-11] MEDS: PANTOPRAZOLE 40 MG/10 ML VIAL INJ IV SCH ×2 (09:33→22:08)
[2021-10-11] MEDS: ASPirin 81 mg TAB PO SCH (09:33)
[2021-10-11] MEDS: METHADONE HCL 10 MG TAB PO SCH (09:34)
[2021-10-11] MEDS: NICOTINE 14 MG/24HR TOPICAL PATCH TD SCH (09:36)
[2021-10-11] MEDS: amLODIPine BESYLATE 5 MG TAB PO SCH (09:36)
[2021-10-11] MEDS: B-COMPLEX W/ C & FOLIC ACID(NEPHROVITE TAB) PO SCH (09:36)
[2021-10-11] MEDS ORDERED: EPOETIN ALFA-EPBX 10,000 UNIT/1ML VIAL SC ONE (21:00)
[2021-10-11] MEDS: clonazePAM 0.5 MG TAB PO PRN (22:09)
[2021-10-11] MEDS: DOXYCYCLINE 100 MG TAB/CAP PO SCH (22:09)
[2021-10-12] MEDS: ACCU-CHEK COMFORT CURVE STRIP VI SCH ×3 (00:43→11:49)
[2021-10-12] MEDS: MORPHINE SULFATE INJ 2 MG/ml SYRG IV PRN ×3 (00:45→13:16)
[2021-10-12] MEDS: InsuLIN REG 1unit/0.01ml Soln (100units/ml) SC SCH ×3 (00:46→11:49)
[2021-10-12 05:36] VITALS: BP 116/64
[2021-10-12] MEDS: SODIUM CHLOR 0.9% PF (SALINE LOCK) 10ML VIAL/SYR IV SCH (05:43)
[2021-10-12] MEDS: CALCIUM ACETATE 667 MG CAP PO SCH ×2 (08:19→13:17)
[2021-10-12 09:00] VITALS: BP 111/58
[2021-10-12] MEDS: NICOTINE 14 MG/24HR TOPICAL PATCH TD SCH (09:56)
[2021-10-12] MEDS: PANTOPRAZOLE 40 MG/10 ML VIAL INJ IV SCH (09:57)
[2021-10-12] MEDS: DOXYCYCLINE 100 MG TAB/CAP PO SCH (09:57)
[2021-10-12] MEDS: ASPirin 81 mg TAB PO SCH (09:57)
[2021-10-12] MEDS: amLODIPine BESYLATE 5 MG TAB PO SCH (09:57)
[2021-10-12] MEDS: B-COMPLEX W/ C & FOLIC ACID(NEPHROVITE TAB) PO SCH (09:57)
[2021-10-12] MEDS ORDERED: AMOX500T86 PO (10:24)
[2021-10-12] MEDS ORDERED: DOXY-340 PO (10:24)
[2021-10-12 13:16] VITALS: BP 111/58
== END 2021-10-12 15:00 | disposition home health service (06) | DRG 871 ==
LOC: EDBD 19:37 → ER 19:37 → TELE 09-29 05:12 → TELE-WESTW 09-29 08:23 → ICU WEST 09-29 14:39 → TELE-EAST 10-01 18:24
PROVIDERS: ADMIT Nurse Practitioner Family; ATTEND Internal Medicine Nephrology
PROC: 30233N1 Transfusion of Nonautologous Red Blood Cells into Peripheral Vein, Percutaneous Approach (ICD-10-PCS; principal; 2021-09-30)
PROC: 0JH63XZ Insertion of Tunneled Vascular Access Device into Chest Subcutaneous Tissue and Fascia, Percutaneous Approach (ICD-10-PCS; 2021-10-04)
PROC: 02H633Z Insertion of Infusion Device into Right Atrium, Percutaneous Approach (ICD-10-PCS; 2021-10-04)
PROC: B5181ZA Fluoroscopy of Superior Vena Cava using Low Osmolar Contrast, Guidance (ICD-10-PCS; 2021-10-04)
PROC: B548ZZA Ultrasonography of Superior Vena Cava, Guidance (ICD-10-PCS; 2021-10-04)
PROC: 5A1D70Z Performance of Urinary Filtration, Intermittent, Less than 6 Hours Per Day (ICD-10-PCS; 2021-10-05)
PROC: 5A1D70Z Performance of Urinary Filtration, Intermittent, Less than 6 Hours Per Day (ICD-10-PCS; 2021-10-09)
DX: A41.9 Sepsis, unspecified organism (principal); E43 Unspecified severe protein-calorie malnutrition; G93.41 Metabolic encephalopathy; R65.21 Severe sepsis with septic shock; N17.0 Acute kidney failure with tubular necrosis; K85.91 Acute pancreatitis with uninfected necrosis, unspecified; E87.1 Hypo-osmolality and hyponatremia; K86.1 Other chronic pancreatitis; F11.20 Opioid dependence, uncomplicated; K63.2 Fistula of intestine; Z20.822 Contact with and (suspected) exposure to COVID-19; D64.9 Anemia, unspecified; E11.65 Type 2 diabetes mellitus with hyperglycemia; E83.39 Other disorders of phosphorus metabolism; E83.42 Hypomagnesemia; E83.51 Hypocalcemia; E87.5 Hyperkalemia; E88.09 Other disorders of plasma-protein metabolism, not elsewhere classified; G89.29 Other chronic pain; J44.9 Chronic obstructive pulmonary disease, unspecified; N18.32 Chronic kidney disease, stage 3b; G40.909 Epilepsy, unspecified, not intractable, without status epilepticus; E11.40 Type 2 diabetes mellitus with diabetic neuropathy, unspecified; E11.22 Type 2 diabetes mellitus with diabetic chronic kidney disease; E78.5 Hyperlipidemia, unspecified; F41.9 Anxiety disorder, unspecified; E11.21 Type 2 diabetes mellitus with diabetic nephropathy; I12.9 Hypertensive chronic kidney disease with stage 1 through stage 4 chronic kidney disease, or unspecified chronic kidney disease; Z88.8 Allergy status to other drugs, medicaments and biological substances; Z68.25 Body mass index [BMI] 25.0-25.9, adult; Z79.899 Other long term (current) drug therapy; Z80.1 Family history of malignant neoplasm of trachea, bronchus and lung; Z82.49 Family history of ischemic heart disease and other diseases of the circulatory system; Z83.3 Family history of diabetes mellitus; Z79.4 Long term (current) use of insulin; Z91.19 Patient's noncompliance with other medical treatment and regimen; Z93.3 Colostomy status; Z72.0 Tobacco use
CPT/HCPCS: 36415; 36558; 36600; 70450; 70551; 71045; 71250; 74176; 76705; 76775; 76942; 77001; 80048; 80053; 80074; 80307; 81001; 82040; 82140; 82306; 82570; 82805; 82962; 83036; 83605; 83735; 83880; 83970; 84100; 84156; 84300; 84484; 85025; 85610; 85730; 86850; 86900; 86901; 86920; 87040; 87081; 87086; 90935; 93005; 93306; 94640; 95819; 96365; 96366; 96375; 97163; 99152; 99153; 99291; C9113; G0378; J0696; J1815; J2001; J2185; J2250; J2405; J3490; J7060; P9047

== ENCOUNTER 2021-10-26 12:15 | Inpatient (IN) | payer OTHER, MEDICAID ==
[~2021-10-26] VITALS: Ht 172.7 cm; Wt 63.1 kg
[~2021-10-26 12:15] MED LIST changes: +AMOX500T86 PO; +DOXY-340 PO; -ENOX80IN8 SC; -METH10TA2 PO; -OCTR50IN IJ
[2021-10-26] MEDS ORDERED: SODIUM CHLORIDE 0.9% 1,000 ML IV ONE ×2 (12:45)
[2021-10-26 14:20] LABS: Basophils # (auto) 0.1 10 ^3/uL (0-0.2); Eosinophils # (auto) 0.1 10 ^3/uL (0-0.8); Eosinophils % (auto) 1.4 % (0.0-7.0); Hematocrit 28.4 % (41.0-53.0); Hemoglobin 9.4 g/dL (13.5-17.5); Lymphocytes # (auto) 2.6 10 ^3/uL (0.4-5.4); Lymphocytes % (auto) 27.6 % (10.0-50.0); Mean Corpuscular Hemoglobin 29.1 pg (28.0-32.0); Mean Corpuscular Hgb Conc. 33.3 g/dL (32.0-36.0); Mean Corpuscular Volume 87.6 fL (80.0-100.0); Monocytes # (auto) 0.4 10 ^3/uL (0-1.3); Monocytes % (auto) 3.9 % (0.0-12.0); Neutrophils # (auto) 6.2 10 ^3/uL (1.6-8.6); Neutrophils % (auto) 66.1 % (37.0-80.0); Red Blood Cells 3.24 10^6/uL (4.5-5.90); Red Cell Distribution Width 14.8 % (11.8-14.3); White Blood Cell 9.4 10^3/uL (4.4-10.8)
[2021-10-26 14:25] LABS: Albumin 3.2 g/dL (3.4-5.0); Calcium 9.3 mg/dL (8.5-10.1); Potassium 4.5 mmol/L (3.5-5.1)
[2021-10-26 14:28] LABS: BUN/Creatinine Ratio 3.1; Bilirubin, Total 0.6 mg/dL (0.2-1.0)
[2021-10-26] MEDS ORDERED: AZITHROMYCIN 500MG/ 250ML 250 ML IV ONE (16:30)
[2021-10-26] MEDS ORDERED: cefTRIAXone 1GM/50ML D5W 50 ML IV ONE (16:30)
[2021-10-26] MEDS ORDERED: MORPHINE SULFATE INJ 2 MG/ml SYRG IV PRN (18:15)
[2021-10-26] MEDS ORDERED: NITROGLYCERIN 0.4 MG SL TAB SL PRN (18:15)
[2021-10-26 23:13] VITALS: BP 122/76
[2021-10-27 05:00] VITALS: BP 112/68
[2021-10-27] MEDS: cefTRIAXone 1GM/50ML D5W 50 ML IV SCH (09:48)
[2021-10-27] MEDS: AZITHROMYCIN 500MG/ 250ML 250 ML IV SCH (09:49)
[2021-10-27] MEDS: NICOTINE 7MG/24HR TOPICAL PATCH TD SCH (09:49)
[2021-10-27 10:52] LABS: Basophils # (auto) 0.1 10 ^3/uL (0-0.2); Basophils % (auto) 1.3 % (0.0-2.0); Eosinophils # (auto) 0.1 10 ^3/uL (0-0.8); Eosinophils % (auto) 1.5 % (0.0-7.0); Hematocrit 28.3 % (41.0-53.0); Hemoglobin 9.3 g/dL (13.5-17.5); Lymphocytes # (auto) 1.6 10 ^3/uL (0.4-5.4); Lymphocytes % (auto) 22.8 % (10.0-50.0); Mean Corpuscular Hemoglobin 28.7 pg (28.0-32.0); Mean Corpuscular Volume 87.1 fL (80.0-100.0); Monocytes # (auto) 0.2 10 ^3/uL (0-1.3); Monocytes % (auto) 3.2 % (0.0-12.0); Neutrophils # (auto) 5.1 10 ^3/uL (1.6-8.6); Neutrophils % (auto) 71.2 % (37.0-80.0); Nucleated Red Blood Cells % 0.1 %; Red Blood Cells 3.25 10^6/uL (4.5-5.90); Red Cell Distribution Width 14.8 % (11.8-14.3); White Blood Cell 7.2 10^3/uL (4.4-10.8)
[2021-10-27] MEDS ORDERED: METH10T PO (10:53)
[2021-10-27 11:01] LABS: Albumin 2.7 g/dL (3.4-5.0); Calcium 8.9 mg/dL (8.5-10.1); Potassium 4.8 mmol/L (3.5-5.1)
[2021-10-27 11:04] LABS: BUN/Creatinine Ratio 3.2; Bilirubin, Total 0.5 mg/dL (0.2-1.0); Total Protein 7.2 g/dL (6.4-8.2)
[2021-10-27] MEDS ORDERED: SODIUM CHL 0.9% 1000 ML BAG XX ONE (12:45)
[2021-10-27 13:00] VITALS: BP 90/53
[2021-10-27 16:26] VITALS: BP 106/75
[2021-10-27] MEDS: HEPARIN SODIUM (PORCINE) 5000 UNITS/ML 1ML VIAL SC SCH (20:57)
[2021-10-27] MEDS ORDERED: EPOETIN ALFA-EPBX 10,000 UNIT/1ML VIAL SC ONE (21:00)
[2021-10-27 22:00] VITALS: BP 100/47
[2021-10-28 05:00] VITALS: BP 110/49
[2021-10-28 09:00] VITALS: BP 125/61
[2021-10-28] MEDS: METHADONE HCL 10 MG TAB PO SCH (09:34)
[2021-10-28] MEDS: NICOTINE 7MG/24HR TOPICAL PATCH TD SCH (09:34)
[2021-10-28] MEDS: AZITHROMYCIN 500MG/ 250ML 250 ML IV SCH (09:34)
[2021-10-28] MEDS: cefTRIAXone 1GM/50ML D5W 50 ML IV SCH (09:34)
[2021-10-28] MEDS: HEPARIN SODIUM (PORCINE) 5000 UNITS/ML 1ML VIAL SC SCH ×2 (12:35→22:28)
[2021-10-28 13:00] VITALS: BP 111/59
[2021-10-28 17:00] VITALS: BP 84/34
[2021-10-28 19:03] VITALS: BP 105/63
[2021-10-28 22:00] VITALS: BP 116/52
[2021-10-29 05:00] VITALS: BP 116/54
[2021-10-29 08:35] VITALS: BP 146/69
[2021-10-29] MEDS: cefTRIAXone 1GM/50ML D5W 50 ML IV SCH (09:47)
[2021-10-29] MEDS: AZITHROMYCIN 500MG/ 250ML 250 ML IV SCH (09:47)
[2021-10-29] MEDS: METHADONE HCL 10 MG TAB PO SCH (09:48)
[2021-10-29] MEDS: NICOTINE 7MG/24HR TOPICAL PATCH TD SCH (09:54)
[2021-10-29] MEDS: HEPARIN SODIUM (PORCINE) 5000 UNITS/ML 1ML VIAL SC SCH (09:54)
[2021-10-29 14:07] VITALS: BP 118/58
[2021-10-29 16:41] VITALS: BP 94/50
== END 2021-10-29 19:05 | disposition home or self-care (01) | DRG 314 ==
LOC: EDBD 12:15 → ER 12:15 → TELE 18:11 → TELE-WESTW 22:25
PROVIDERS: ADMIT Registered Nurse; ATTEND Internal Medicine
PROC: 5A1D70Z Performance of Urinary Filtration, Intermittent, Less than 6 Hours Per Day (ICD-10-PCS; principal; 2021-10-27)
DX: I95.9 Hypotension, unspecified (principal); G93.41 Metabolic encephalopathy; N17.0 Acute kidney failure with tubular necrosis; N18.6 End stage renal disease; I12.0 Hypertensive chronic kidney disease with stage 5 chronic kidney disease or end stage renal disease; E11.65 Type 2 diabetes mellitus with hyperglycemia; D64.9 Anemia, unspecified; E11.22 Type 2 diabetes mellitus with diabetic chronic kidney disease; E78.5 Hyperlipidemia, unspecified; F17.210 Nicotine dependence, cigarettes, uncomplicated; G89.4 Chronic pain syndrome; J45.909 Unspecified asthma, uncomplicated; Z80.1 Family history of malignant neoplasm of trachea, bronchus and lung; Z82.49 Family history of ischemic heart disease and other diseases of the circulatory system; Z83.3 Family history of diabetes mellitus; Z93.2 Ileostomy status; Z93.3 Colostomy status; Z99.2 Dependence on renal dialysis; F41.9 Anxiety disorder, unspecified; Z88.1 Allergy status to other antibiotic agents
CPT/HCPCS: 36415; 70450; 71045; 74176; 80053; 83605; 84484; 85025; 87040; 87081; 90935; 93005; 93886; 96361; 96365; 96368; 97163; G0378; J0696

== ENCOUNTER 2021-11-06 15:01 | Inpatient (IN) | payer OTHER, MEDICAID ==
[~2021-11-06] VITALS: Ht 177.8 cm; Wt 68.0 kg
[~2021-11-06 15:01] MED LIST changes: +METH10T PO
[2021-11-06 17:46] LABS: Basophils # (auto) 0 10 ^3/uL (0-0.2); Basophils % (auto) 0.4 % (0.0-2.0); Eosinophils # (auto) 0.1 10 ^3/uL (0-0.8); Eosinophils % (auto) 0.6 % (0.0-7.0); Hematocrit 28.4 % (41.0-53.0); Hemoglobin 9.3 g/dL (13.5-17.5); Lymphocytes # (auto) 1.2 10 ^3/uL (0.4-5.4); Lymphocytes % (auto) 11.5 % (10.0-50.0); Mean Corpuscular Hemoglobin 29.4 pg (28.0-32.0); Mean Corpuscular Hgb Conc. 32.7 g/dL (32.0-36.0); Mean Corpuscular Volume 89.8 fL (80.0-100.0); Monocytes # (auto) 0.4 10 ^3/uL (0-1.3); Monocytes % (auto) 4.2 % (0.0-12.0); Neutrophils # (auto) 8.7 10 ^3/uL (1.6-8.6); Neutrophils % (auto) 83.3 % (37.0-80.0); Red Blood Cells 3.16 10^6/uL (4.5-5.90); Red Cell Distribution Width 16.4 % (11.8-14.3); White Blood Cell 10.4 10^3/uL (4.4-10.8)
[2021-11-06 18:13] LABS: BUN/Creatinine Ratio 2.2; Calcium 8.6 mg/dL (8.5-10.1); Potassium 4.1 mmol/L (3.5-5.1)
[2021-11-06 18:16] LABS: Bilirubin, Total 0.5 mg/dL (0.2-1.0); Total Protein 7.2 g/dL (6.4-8.2)
[2021-11-06] MEDS ORDERED: cefTRIAXone 1GM/50ML D5W 50 ML IV ONE (22:45)
[2021-11-06] MEDS ORDERED: AZITHROMYCIN 500MG/ 250ML 250 ML IV ONE (22:45)
[2021-11-06] MEDS ORDERED: DEXTROSE (50%) 50ML SYRG IV PRN (23:00)
[2021-11-06] MEDS ORDERED: HYDROcodone-ACET 5/325MG TAB PO PRN (23:00)
[2021-11-06] MEDS ORDERED: MORPHINE SULFATE INJ 2 MG/ml SYRG IV PRN ×2 (23:00)
[2021-11-06] MEDS ORDERED: ALBUTEROL SULF 2.5 MG/0.5ML(0.5%) NEB SOLN NEB PRN (23:00)
[2021-11-06] MEDS ORDERED: ACETAMINOPHEN 325 MG TAB PO PRN (23:00)
[2021-11-06] MEDS ORDERED: TEMAZEPAM 15 MG CAP PO PRN (23:00)
[2021-11-06] MEDS ORDERED: NITROGLYCERIN 0.4 MG SL TAB SL PRN (23:00)
[2021-11-06] MEDS ORDERED: ONDANSETRON HCL 4 MG/2 ML VIAL IV PRN (23:00)
[2021-11-06 23:31] VITALS: BP 103/56
[2021-11-07 04:07] LABS: Basophils # (auto) 0.1 10 ^3/uL (0-0.2); Basophils % (auto) 0.6 % (0.0-2.0); Eosinophils # (auto) 0.1 10 ^3/uL (0-0.8); Hematocrit 29.5 % (41.0-53.0); Hemoglobin 9.7 g/dL (13.5-17.5); Lymphocytes # (auto) 1.7 10 ^3/uL (0.4-5.4); Lymphocytes % (auto) 20.5 % (10.0-50.0); Mean Corpuscular Hemoglobin 29.1 pg (28.0-32.0); Mean Corpuscular Hgb Conc. 32.8 g/dL (32.0-36.0); Mean Corpuscular Volume 88.8 fL (80.0-100.0); Monocytes # (auto) 0.4 10 ^3/uL (0-1.3); Monocytes % (auto) 4.7 % (0.0-12.0); Neutrophils # (auto) 6.1 10 ^3/uL (1.6-8.6); Neutrophils % (auto) 73.2 % (37.0-80.0); Red Blood Cells 3.32 10^6/uL (4.5-5.90); Red Cell Distribution Width 16.4 % (11.8-14.3); White Blood Cell 8.3 10^3/uL (4.4-10.8)
[2021-11-07 04:27] LABS: Albumin 2.9 g/dL (3.4-5.0); BUN/Creatinine Ratio 2.1; Calcium 9.1 mg/dL (8.5-10.1); Potassium 3.8 mmol/L (3.5-5.1)
[2021-11-07 04:30] LABS: Bilirubin, Total 0.6 mg/dL (0.2-1.0); Total Protein 7.4 g/dL (6.4-8.2)
[2021-11-07] MEDS: LEVOTHYROXINE SODIUM 100 MCG TAB PO SCH ×2 (07:30→07:50)
[2021-11-07] MEDS: GABAPENTIN 300 MG CAP PO SCH ×3 (07:30→13:09)
[2021-11-07] MEDS: InsuLIN REG 1unit/0.01ml Soln (100units/ml) SC SCH ×3 (07:49→18:43)
[2021-11-07] MEDS: ACCU-CHEK COMFORT CURVE STRIP VI SCH ×3 (07:50→17:00)
[2021-11-07] MEDS: PANCREATIC ENZYMES 4200 UNIT CAP PO SCH ×3 (08:00→18:42)
[2021-11-07 08:14] VITALS: BP 96/53
[2021-11-07] MEDS ORDERED: cefTRIAXone 1GM/50ML D5W 50 ML IV SCH (09:00)
[2021-11-07] MEDS ORDERED: SODIUM CHL 0.9% 1000 ML BAG XX ONE (09:15)
[2021-11-07 09:38] LABS: Magnesium 1.8 mg/dL (1.6-2.6); Phosphorus 3.2 mg/dL (2.5-4.90)
[2021-11-07] MEDS ORDERED: AZITHROMYCIN 500MG/ 250ML 250 ML IV SCH (10:00)
[2021-11-07] MEDS ORDERED: APIXABAN 5 MG TAB PO SCH (10:00)
[2021-11-07] MEDS ORDERED: PANTOPRAZOLE 40 MG TAB PO SCH (10:00)
[2021-11-07] MEDS: MIDODRINE HCL 10 MG TAB PO SCH ×2 (13:08→18:42)
[2021-11-07] MEDS ORDERED: EPOETIN ALFA-EPBX 10,000 UNIT/1ML VIAL SC ONE (21:00)
== END 2021-11-07 20:00 | disposition home or self-care (01) | DRG 70 ==
LOC: EDBD 15:01 → ER 15:01 → TELE 23:14 → TELE-EAST 11-07 08:40
PROVIDERS: ADMIT Nurse Practitioner; ATTEND Hospitalist
PROC: 5A1D70Z Performance of Urinary Filtration, Intermittent, Less than 6 Hours Per Day (ICD-10-PCS; principal; 2021-11-07)
DX: G93.41 Metabolic encephalopathy (principal); N18.6 End stage renal disease; D63.1 Anemia in chronic kidney disease; E11.22 Type 2 diabetes mellitus with diabetic chronic kidney disease; E11.65 Type 2 diabetes mellitus with hyperglycemia; E78.5 Hyperlipidemia, unspecified; E88.09 Other disorders of plasma-protein metabolism, not elsewhere classified; F17.210 Nicotine dependence, cigarettes, uncomplicated; Z20.822 Contact with and (suspected) exposure to COVID-19; J45.909 Unspecified asthma, uncomplicated; M19.90 Unspecified osteoarthritis, unspecified site; Z79.899 Other long term (current) drug therapy; Z90.411 Acquired partial absence of pancreas; Z93.2 Ileostomy status; Z93.3 Colostomy status; Z99.2 Dependence on renal dialysis; Z80.1 Family history of malignant neoplasm of trachea, bronchus and lung; Z82.49 Family history of ischemic heart disease and other diseases of the circulatory system; Z83.3 Family history of diabetes mellitus; Z88.8 Allergy status to other drugs, medicaments and biological substances; Z79.4 Long term (current) use of insulin; I95.9 Hypotension, unspecified
CPT/HCPCS: 36415; 71045; 74176; 80053; 82306; 82962; 83036; 83605; 83690; 83735; 83880; 83970; 84100; 84484; 85025; 87040; 90935; 93005; 96365; 96366; 96368; G0378; J0696; J1815

== ENCOUNTER 2021-11-09 17:06 | Inpatient (IN) | payer OTHER, MEDICAID ==
[~2021-11-09] VITALS: Ht 170.2 cm; Wt 70.4 kg
[~2021-11-09 17:06] MED LIST changes: -AMOX500T86 PO; -DOXY-340 PO
[2021-11-09] MEDS ORDERED: SODIUM CHLORIDE 0.9% 1,000 ML IV ONE ×2 (18:00→20:30)
[2021-11-09] MEDS ORDERED: MAGNESIUM SULFATE 1GM/100ML 100 ML IV ONE (18:00)
[2021-11-09] MEDS: NOREPINEPHRINE 8 MG/250ML KIT 250 ML IV SCH (18:45)
[2021-11-09 18:50] LABS: Basophils # (auto) 0.1 10 ^3/uL (0-0.2); Eosinophils # (auto) 0.1 10 ^3/uL (0-0.8); Lymphocytes # (auto) 1.6 10 ^3/uL (0.4-5.4); Neutrophils # (auto) 4.3 10 ^3/uL (1.6-8.6); Neutrophils % (auto) 67.4 % (37.0-80.0); White Blood Cell 6.4 10^3/uL (4.4-10.8)
[2021-11-09 18:52] LABS: Hematocrit 24.3 % (41.0-53.0); Hemoglobin 7.8 g/dL (13.5-17.5); Lymphocytes % (auto) 24.9 % (10.0-50.0); Mean Corpuscular Hemoglobin 29.2 pg (28.0-32.0); Mean Corpuscular Hgb Conc. 32.2 g/dL (32.0-36.0); Mean Corpuscular Volume 90.6 fL (80.0-100.0); Monocytes # (auto) 0.4 10 ^3/uL (0-1.3); Monocytes % (auto) 5.7 % (0.0-12.0); Red Blood Cells 2.68 10^6/uL (4.5-5.90); Red Cell Distribution Width 16.1 % (11.8-14.3)
[2021-11-09 18:55] LABS: Calcium 8.5 mg/dL (8.5-10.1); Magnesium 1.9 mg/dL (1.6-2.6); Potassium 3.7 mmol/L (3.5-5.1)
[2021-11-09 18:58] LABS: BUN/Creatinine Ratio 2.8; Lactic Acid w/Reflex 2.2 mmol/L (0.4-2.0)
[2021-11-09 19:00] LABS: Bilirubin, Total 0.4 mg/dL (0.2-1.0); Total Protein 7.8 g/dL (6.4-8.2)
[2021-11-09] MEDS ORDERED: NALOXONE HCL 0.4 MG/ML VIAL IV ONE (20:30)
[2021-11-09] MEDS ORDERED: DexAMETHasone SOD PHOS 4 MG/1ML SDV INJ IV ONE (23:15)
[2021-11-09] MEDS ORDERED: ATROPINE SULF 1 MG/10ml SYR IV ONE (23:15)
[2021-11-09] MEDS ORDERED: METOCLOPRAMIDE HCL 5MG/ml INJ 2ml VIAL IV PRN (23:30)
[2021-11-09] MEDS ORDERED: ACETAMINOPHEN 325 MG TAB PO PRN (23:30)
[2021-11-09] MEDS ORDERED: DOCUSATE SOD 100 MG CAP PO PRN (23:30)
[2021-11-09] MEDS ORDERED: ATROPINE SULFATE 1 MG/1 ML VIAL ONE (23:32)
[2021-11-10] VITALS (73 sets, daily range): BP systolic 88–157; BP diastolic 44–75
[2021-11-10 04:30] LABS: Basophils # (auto) 0.1 10 ^3/uL (0-0.2); Eosinophils # (auto) 0.1 10 ^3/uL (0-0.8); Lymphocytes # (auto) 1.4 10 ^3/uL (0.4-5.4); Mean Corpuscular Volume 90.3 fL (80.0-100.0); Monocytes # (auto) 0.2 10 ^3/uL (0-1.3)
[2021-11-10 04:32] LABS: Basophils % (auto) 1.2 % (0.0-2.0); Eosinophils % (auto) 1.5 % (0.0-7.0); Hematocrit 25.3 % (41.0-53.0); Hemoglobin 8.3 g/dL (13.5-17.5); Lymphocytes % (auto) 21.5 % (10.0-50.0); Mean Corpuscular Hemoglobin 29.8 pg (28.0-32.0); Monocytes % (auto) 2.8 % (0.0-12.0); Neutrophils # (auto) 4.9 10 ^3/uL (1.6-8.6); Red Cell Distribution Width 16.7 % (11.8-14.3); White Blood Cell 6.7 10^3/uL (4.4-10.8)
[2021-11-10 04:41] LABS: BUN/Creatinine Ratio 2.9; Calcium 8.6 mg/dL (8.5-10.1); Potassium 4.7 mmol/L (3.5-5.1)
[2021-11-10] MEDS ORDERED: INSLANTI SC (07:49)
[2021-11-10] MEDS ORDERED: LEVO100C3 PO (07:55)
[2021-11-10] MEDS ORDERED: APIX5TAB PO (07:57)
[2021-11-10] MEDS ORDERED: METH750T22 PO (08:00)
[2021-11-10] MEDS ORDERED: POTA-220 PO (08:02)
[2021-11-10] MEDS ORDERED: OCTR100I IJ (08:04)
[2021-11-10] MEDS ORDERED: CALC0.25 PO (08:06)
[2021-11-10] MEDS: MIDODRINE HCL 10 MG TAB PO SCH ×2 (12:00→18:41)
[2021-11-10] MEDS: ALBUMIN 25% 100 ML IV SCH ×2 (15:43→20:23)
[2021-11-10] MEDS: MORPHINE SULFATE INJ 2 MG/ml SYRG IV PRN (18:42)
[2021-11-10] MEDS: NOREPINEPHRINE 8 MG/250ML KIT 250 ML IV SCH (19:11)
[2021-11-11] VITALS (92 sets, daily range): BP systolic 67–157; BP diastolic 26–78
[2021-11-11] MEDS: MORPHINE SULFATE INJ 2 MG/ml SYRG IV PRN ×3 (02:16→20:22)
[2021-11-11 04:43] LABS: BUN/Creatinine Ratio 4.3; Calcium 8.8 mg/dL (8.5-10.1)
[2021-11-11] MEDS ORDERED: DEXTROSE (50%) 50ML SYRG IV PRN (05:15)
[2021-11-11] MEDS: MIDODRINE HCL 10 MG TAB PO SCH ×4 (05:32→17:59)
[2021-11-11] MEDS: InsuLIN REG 1unit/0.01ml Soln (100units/ml) SC SCH ×4 (05:37→22:11)
[2021-11-11] MEDS ORDERED: FUROSEMIDE 40 MG/4 ML VIAL IV ONE (11:15)
[2021-11-11] MEDS: SODIUM CHLORIDE 0.9% 1,000 ML IV SCH (12:00)
[2021-11-11] MEDS: ACCU-CHEK COMFORT CURVE STRIP VI SCH ×3 (12:22→22:09)
[2021-11-11] MEDS: NOREPINEPHRINE 8 MG/250ML KIT 250 ML IV SCH (18:45)
[2021-11-12] VITALS (73 sets, daily range): BP systolic 78–144; BP diastolic 39–75
[2021-11-12] MEDS: HYDROcodone-ACET 5/325MG TAB PO PRN ×3 (00:02→17:55)
[2021-11-12] MEDS: MORPHINE SULFATE INJ 2 MG/ml SYRG IV PRN ×4 (02:51→20:26)
[2021-11-12 04:14] LABS: BUN/Creatinine Ratio 5.1; Calcium 8.6 mg/dL (8.5-10.1); Potassium 4.7 mmol/L (3.5-5.1)
[2021-11-12] MEDS: MIDODRINE HCL 10 MG TAB PO SCH ×2 (06:26→12:11)
[2021-11-12] MEDS: ACCU-CHEK COMFORT CURVE STRIP VI SCH ×4 (06:36→22:11)
[2021-11-12] MEDS: InsuLIN REG 1unit/0.01ml Soln (100units/ml) SC SCH ×4 (06:37→22:18)
[2021-11-12] MEDS ORDERED: SODIUM CHL 0.9% 1000 ML BAG XX ONE (07:00)
[2021-11-12] MEDS: SODIUM CHLORIDE 0.9% 1,000 ML IV SCH ×3 (08:00→20:43)
[2021-11-12 16:54] LABS: Urine Bacteria FEW /hpf (None Seen); Urine Blood 3+ /uL (Negative); Urine Specific Gravity 1.014 (1.001-1.035); Urine WBC 8 /hpf (0 - 3)
[2021-11-12] MEDS ORDERED: FAMOTIDINE 20 MG TAB PO ONE (18:15)
[2021-11-12] MEDS ORDERED: EPOETIN ALFA-EPBX 10,000 UNIT/1ML VIAL SC ONE (21:00)
[2021-11-13] VITALS (45 sets, daily range): BP systolic 76–236; BP diastolic 41–179
[2021-11-13 03:56] LABS: BUN/Creatinine Ratio 5.6; Calcium 8.2 mg/dL (8.5-10.1); Potassium 3.9 mmol/L (3.5-5.1)
[2021-11-13] MEDS: MORPHINE SULFATE INJ 2 MG/ml SYRG IV PRN ×3 (04:22→15:16)
[2021-11-13] MEDS: NOREPINEPHRINE 8 MG/250ML KIT 250 ML IV SCH (04:52)
[2021-11-13] MEDS: LORazepam 0.5 MG TAB PO PRN ×2 (05:19→22:31)
[2021-11-13] MEDS: MIDODRINE HCL 10 MG TAB PO SCH ×3 (06:42→18:00)
[2021-11-13] MEDS: ACCU-CHEK COMFORT CURVE STRIP VI SCH ×4 (06:42→22:31)
[2021-11-13] MEDS: InsuLIN REG 1unit/0.01ml Soln (100units/ml) SC SCH ×4 (06:49→22:38)
[2021-11-13] MEDS ORDERED: SODIUM CHLORIDE 0.9% 1,000 ML IV ONE (07:00)
[2021-11-13] MEDS: SODIUM CHLORIDE 0.9% 1,000 ML IV SCH (13:25)
[2021-11-13] MEDS: HYDROcodone-ACET 5/325MG TAB PO PRN (18:57)
[2021-11-13] MEDS: HEPARIN SODIUM (PORCINE) 5000 UNITS/ML 1ML VIAL SC SCH (22:38)
[2021-11-14] VITALS (12 sets, daily range): BP systolic 73–142; BP diastolic 42–75
[2021-11-14] MEDS: MORPHINE SULFATE INJ 2 MG/ml SYRG IV PRN (00:24)
[2021-11-14] MEDS: SODIUM CHLORIDE 0.9% 1,000 ML IV SCH ×2 (03:31→16:05)
[2021-11-14 06:26] LABS: Basophils # (auto) 0.1 10 ^3/uL (0-0.2); Basophils % (auto) 1.5 % (0.0-2.0); Eosinophils # (auto) 0 10 ^3/uL (0-0.8); Eosinophils % (auto) 0.6 % (0.0-7.0); Hematocrit 29.1 % (41.0-53.0); Hemoglobin 9.9 g/dL (13.5-17.5); Lymphocytes # (auto) 2.7 10 ^3/uL (0.4-5.4); Lymphocytes % (auto) 40.1 % (10.0-50.0); Mean Corpuscular Hgb Conc. 33.9 g/dL (32.0-36.0); Mean Corpuscular Volume 88.6 fL (80.0-100.0); Monocytes # (auto) 0.3 10 ^3/uL (0-1.3); Neutrophils # (auto) 3.6 10 ^3/uL (1.6-8.6); Neutrophils % (auto) 53.8 % (37.0-80.0); Nucleated Red Blood Cells % 0.1 %; Red Blood Cells 3.29 10^6/uL (4.5-5.90); Red Cell Distribution Width 16.4 % (11.8-14.3); White Blood Cell 6.7 10^3/uL (4.4-10.8)
[2021-11-14] MEDS: ACCU-CHEK COMFORT CURVE STRIP VI SCH ×2 (06:27→11:38)
[2021-11-14] MEDS: HYDROcodone-ACET 5/325MG TAB PO PRN ×2 (06:27→14:23)
[2021-11-14] MEDS: MIDODRINE HCL 10 MG TAB PO SCH ×2 (06:27→11:29)
[2021-11-14] MEDS: InsuLIN REG 1unit/0.01ml Soln (100units/ml) SC SCH ×2 (06:28→11:30)
[2021-11-14 06:36] LABS: BUN/Creatinine Ratio 4.4; Calcium 8.8 mg/dL (8.5-10.1); Magnesium 1.7 mg/dL (1.6-2.6); Potassium 4.2 mmol/L (3.5-5.1)
[2021-11-14] MEDS ORDERED: HEPARIN SODIUM (PORCINE) 5000 UNITS/ML 1ML VIAL ONE (10:50)
[2021-11-14] MEDS: HEPARIN SODIUM (PORCINE) 5000 UNITS/ML 1ML VIAL SC SCH (11:31)
[2021-11-14] MEDS ORDERED: MID10T PO (17:28)
[2021-11-14] MEDS ORDERED: FAMOTIDINE 20 MG TAB PO SCH (18:00)
== END 2021-11-14 18:40 | disposition home or self-care (01) | DRG 314 ==
LOC: EDBD 17:06 → ER 17:06 → TELE 23:27 → ICU WEST 23:27 → TELE-CENTR 11-13 20:55
PROVIDERS: ADMIT Hospitalist; ATTEND Internal Medicine
PROC: 5A1D70Z Performance of Urinary Filtration, Intermittent, Less than 6 Hours Per Day (ICD-10-PCS; principal; 2021-11-12)
DX: I95.9 Hypotension, unspecified (principal); N18.6 End stage renal disease; E46 Unspecified protein-calorie malnutrition; E87.1 Hypo-osmolality and hyponatremia; E11.22 Type 2 diabetes mellitus with diabetic chronic kidney disease; E11.649 Type 2 diabetes mellitus with hypoglycemia without coma; F17.210 Nicotine dependence, cigarettes, uncomplicated; F41.9 Anxiety disorder, unspecified; Z20.822 Contact with and (suspected) exposure to COVID-19; G89.29 Other chronic pain; D64.9 Anemia, unspecified; J45.909 Unspecified asthma, uncomplicated; Z82.49 Family history of ischemic heart disease and other diseases of the circulatory system; Z99.2 Dependence on renal dialysis; Z80.1 Family history of malignant neoplasm of trachea, bronchus and lung; Z83.3 Family history of diabetes mellitus; Z93.2 Ileostomy status; Z93.3 Colostomy status; Z88.1 Allergy status to other antibiotic agents; Z68.24 Body mass index [BMI] 24.0-24.9, adult
CPT/HCPCS: 36415; 70450; 71045; 80048; 80053; 81001; 82962; 83605; 83690; 83735; 84436; 84443; 84481; 84484; 85025; 87040; 87081; 90935; 93005; 96361; 96365; 96375; 97163; G0378; J0461; J1100; J1642; J1815; P9047

== ENCOUNTER 2021-12-04 12:10 | Emergency (ER) | payer OTHER, MEDICAID ==
[~2021-12-04] VITALS: Ht 175.3 cm; Wt 72.7 kg
[~2021-12-04 12:10] MED LIST changes: +APIX5TAB PO; +CALC0.25 PO; +LEVO100C3 PO; +METH750T22 PO; +MID10T PO; +OCTR100I IJ; +POTA-220 PO
[2021-12-04 12:30] VITALS: BP 117/66
[2021-12-04] MEDS ORDERED: SODIUM CHLORIDE 0.9% 1,000 ML IV ONE ×2 (12:30)
== END 2021-12-05 00:54 | disposition left against medical advice (07) ==
LOC: ER 12:10 → EDBD 12:10 → ER 12-05 00:54
DX: E11.65 Type 2 diabetes mellitus with hyperglycemia (principal); E11.22 Type 2 diabetes mellitus with diabetic chronic kidney disease; N18.6 End stage renal disease; E78.5 Hyperlipidemia, unspecified; F17.210 Nicotine dependence, cigarettes, uncomplicated; J45.909 Unspecified asthma, uncomplicated; R94.31 Abnormal electrocardiogram [ECG] [EKG]; Z99.2 Dependence on renal dialysis; Z88.1 Allergy status to other antibiotic agents
CPT/HCPCS: 82962; 93005

== ENCOUNTER 2021-12-18 11:13 | Emergency (ER) | payer OTHER, MEDICAID ==
[~2021-12-18] VITALS: Ht 177.8 cm; Wt 59.0 kg
[2021-12-18 11:15] VITALS: BP 110/69
== END 2021-12-18 18:07 | disposition left against medical advice (07) ==
LOC: ER 11:13 → EDBD 11:13 → ER 18:07
DX: R22.31 Localized swelling, mass and lump, right upper limb (principal); R20.2 Paresthesia of skin; Z53.21 Procedure and treatment not carried out due to patient leaving prior to being seen by health care provider

== ENCOUNTER 2021-12-27 13:08 | Inpatient (IN) | payer OTHER, MEDICAID ==
[~2021-12-27] VITALS: Ht 162.6 cm; Wt 56.6 kg
[2021-12-27 13:28] LABS: Basophils # (auto) 0.1 10 ^3/uL (0-0.2); Basophils % (auto) 0.7 % (0.0-2.0); Eosinophils # (auto) 0 10 ^3/uL (0-0.8); Eosinophils % (auto) 0.1 % (0.0-7.0); Hematocrit 39.3 % (41.0-53.0); Hemoglobin 12.8 g/dL (13.5-17.5); Lymphocytes # (auto) 1.8 10 ^3/uL (0.4-5.4); Mean Corpuscular Hemoglobin 30.3 pg (28.0-32.0); Mean Corpuscular Hgb Conc. 32.6 g/dL (32.0-36.0); Monocytes # (auto) 0.2 10 ^3/uL (0-1.3); Monocytes % (auto) 1.9 % (0.0-12.0); Neutrophils # (auto) 8.5 10 ^3/uL (1.6-8.6); Neutrophils % (auto) 80.3 % (37.0-80.0); Red Blood Cells 4.22 10^6/uL (4.5-5.90); Red Cell Distribution Width 14.6 % (11.8-14.3); White Blood Cell 10.6 10^3/uL (4.4-10.8)
[2021-12-27 14:04] LABS: Albumin 2.3 g/dL (3.4-5.0); Calcium 8.2 mg/dL (8.5-10.1); Magnesium 2.1 mg/dL (1.6-2.6)
[2021-12-27 14:07] LABS: Bilirubin, Total 0.6 mg/dL (0.2-1.0); Total Protein 6.7 g/dL (6.4-8.2)
[2021-12-27 14:23] LABS: BUN/Creatinine Ratio 5.9; Potassium 8.1 mmol/L (3.5-5.1)
[2021-12-27] MEDS ORDERED: ALBUTEROL SULF 2.5 MG/0.5ML(0.5%) NEB SOLN NEB ONE (14:30)
[2021-12-27] MEDS ORDERED: CALCIUM GLUC 1,000mg/50ml-NS 50 ML IV ONE (14:30)
[2021-12-27] MEDS ORDERED: SODIUM ZIRCONIUM CYCL 10 GM PAK PO ONE (14:30)
[2021-12-27] MEDS ORDERED: InsuLIN REG 1unit/0.01ml Soln (100units/ml) IV ONE (14:30)
[2021-12-27] MEDS ORDERED: SODIUM CHLORIDE 0.9% 2,000 ML IV ONE (15:45)
[2021-12-27] MEDS ORDERED: NOREPINEPHRINE 8 MG/250ML KIT 250 ML IV SCH (15:45)
[2021-12-27] MEDS ORDERED: SODIUM CHL 0.9% 1000 ML BAG XX ONE (17:30)
[2021-12-27] MEDS ORDERED: ALBUMIN 25% 100 ML IV PRN (17:30)
[2021-12-27 18:49] LABS: Lactic Acid w/Reflex 3.2 mmol/L (0.4-2.0)
[2021-12-27] MEDS ORDERED: CEFEPIME 1GM/ 50ML 50 ML IV ONE (19:15)
[2021-12-27] MEDS ORDERED: DEXTROSE (50%) 50ML SYRG IV PRN ×2 (19:15→19:30)
[2021-12-27] MEDS ORDERED: InsuLIN R (HUMAN) 100 UNITS in SODIUM CHL 0.9% 99 ML IV SCH ×2 (19:15→19:30)
[2021-12-27] MEDS ORDERED: LINEZOLID 600MG/300ML 300 ML IV ONE (19:24)
[2021-12-27] MEDS ORDERED: INSULIN LANTUS (GLARGINE) 1 /0.01ml (100units/ml) SC ONE (19:30)
[2021-12-27] MEDS: ACCU-CHEK COMFORT CURVE STRIP VI SCH ×3 (19:30→23:00)
[2021-12-27] MEDS ORDERED: PANTOPRAZOLE 40 MG/10 ML VIAL INJ IV ONE (19:45)
[2021-12-27] MEDS ORDERED: NITROGLYCERIN 0.4 MG SL TAB SL PRN (19:45)
[2021-12-27] MEDS ORDERED: VANCOMYCIN 1GM/250ML 250 ML IV ONE (20:00)
[2021-12-27 20:24] LABS: BUN/Creatinine Ratio 5.4; Calcium 8.9 mg/dL (8.5-10.1); Potassium 4.6 mmol/L (3.5-5.1)
[2021-12-28] VITALS (81 sets, daily range): BP systolic 43–177; BP diastolic 20–102
[2021-12-28] MEDS: ACCU-CHEK COMFORT CURVE STRIP VI SCH ×10 (01:30→22:16)
[2021-12-28 01:39] LABS: BUN/Creatinine Ratio 5.1; Calcium 8.3 mg/dL (8.5-10.1); Potassium 4.7 mmol/L (3.5-5.1)
[2021-12-28 05:03] LABS: BUN/Creatinine Ratio 5.2; Calcium 8.7 mg/dL (8.5-10.1); Potassium 4.8 mmol/L (3.5-5.1)
[2021-12-28] MEDS: INSULIN LANTUS (GLARGINE) 1 /0.01ml (100units/ml) SC SCH (10:00)
[2021-12-28] MEDS ORDERED: DEXTROSE (50%) 50ML SYRG IV PRN (10:00)
[2021-12-28] MEDS ORDERED: PANTOPRAZOLE 40 MG/10 ML VIAL INJ IV SCH (10:00)
[2021-12-28] MEDS: NOREPINEPHRINE 8 MG/250ML KIT 250 ML IV SCH ×3 (10:00→15:30)
[2021-12-28] MEDS ORDERED: ENOXAPARIN SOD 40 MG/0.4 ML SYRINGE SC SCH (10:00)
[2021-12-28] MEDS: PIPERACILLIN-TAZOB 2.25GM 50 ML IV SCH ×2 (10:31→22:45)
[2021-12-28] MEDS: HEPARIN SODIUM (PORCINE) 5000 UNITS/ML 1ML VIAL SC SCH ×3 (10:32→22:44)
[2021-12-28] MEDS: InsuLIN REG 1unit/0.01ml Soln (100units/ml) SC SCH ×3 (11:30→22:00)
[2021-12-28] MEDS: SEVELAMER 800 MG TAB PO SCH ×2 (12:53→18:00)
[2021-12-29] VITALS (88 sets, daily range): BP systolic 77–186; BP diastolic 39–88
[2021-12-29 04:39] LABS: Alanine Aminotransferase 8 U/L (16-61); Albumin 2.4 g/dL (3.4-5.0); Anion Gap 13 (5-15); Aspartate Aminotransferase 16 U/L (15-37); BUN/Creatinine Ratio 5.2; Blood Urea Nitrogen 48 mg/dL (7-18); Calcium 8.4 mg/dL (8.5-10.1); Carbon Dioxide 27 mmol/L (21-32); Chloride 94 mmol/L (98-107); GFR African American 8 mL/min; GFR Non-African American 6 mL/min; Glucose 202 mg/dL (74-106); Potassium 5.1 mmol/L (3.5-5.1); Sodium 134 mmol/L (136-145)
[2021-12-29 04:42] LABS: Alkaline Phosphatase 311 U/L (45-117); Bilirubin, Total 0.4 mg/dL (0.2-1.0); Total Protein 7.4 g/dL (6.4-8.2)
[2021-12-29 05:03] LABS: Basophils # (auto) 0.1 10 ^3/uL (0-0.2); Basophils % (auto) 0.9 % (0.0-2.0); Eosinophils # (auto) 0.1 10 ^3/uL (0-0.8); Eosinophils % (auto) 0.8 % (0.0-7.0); Hematocrit 37.5 % (41.0-53.0); Hemoglobin 12.6 g/dL (13.5-17.5); Lymphocytes # (auto) 3.3 10 ^3/uL (0.4-5.4); Lymphocytes % (auto) 21.7 % (10.0-50.0); Mean Corpuscular Hemoglobin 30.2 pg (28.0-32.0); Mean Corpuscular Hgb Conc. 33.5 g/dL (32.0-36.0); Mean Corpuscular Volume 90.1 fL (80.0-100.0); Monocytes # (auto) 0.4 10 ^3/uL (0-1.3); Monocytes % (auto) 2.5 % (0.0-12.0); Neutrophils # (auto) 11.2 10 ^3/uL (1.6-8.6); Neutrophils % (auto) 74.1 % (37.0-80.0); Nucleated Red Blood Cells % 0.1 %; Red Blood Cells 4.16 10^6/uL (4.5-5.90); Red Cell Distribution Width 15.5 % (11.8-14.3)
[2021-12-29] MEDS: ACCU-CHEK COMFORT CURVE STRIP VI SCH ×4 (06:42→22:27)
[2021-12-29] MEDS: InsuLIN REG 1unit/0.01ml Soln (100units/ml) SC SCH ×4 (06:44→22:00)
[2021-12-29] MEDS ORDERED: SODIUM CHL 0.9% 1000 ML BAG XX ONE (07:00)
[2021-12-29] MEDS: SEVELAMER 800 MG TAB PO SCH ×3 (08:57→17:51)
[2021-12-29] MEDS: PIPERACILLIN-TAZOB 2.25GM 50 ML IV SCH ×2 (09:53→22:10)
[2021-12-29] MEDS: HEPARIN SODIUM (PORCINE) 5000 UNITS/ML 1ML VIAL SC SCH ×2 (09:53→22:12)
[2021-12-29] MEDS: INSULIN LANTUS (GLARGINE) 1 /0.01ml (100units/ml) SC SCH (09:56)
[2021-12-29] MEDS: MIDODRINE HCL 10 MG TAB PO SCH ×2 (11:46→17:51)
[2021-12-29] MEDS: LINEZOLID 600MG/300ML 300 ML IV SCH (11:47)
[2021-12-29] MEDS: ALBUMIN 25% 100 ML IV PRN ×2 (15:22→16:18)
[2021-12-29] MEDS: NOREPINEPHRINE 8 MG/250ML KIT 250 ML IV SCH (15:30)
[2021-12-29] MEDS: OXYCODONE W/ ACETAMINOPHEN 5/325MG TABLET PO PRN (22:11)
[2021-12-30] VITALS (55 sets, daily range): BP systolic 89–152; BP diastolic 48–74
[2021-12-30] MEDS: LINEZOLID 600MG/300ML 300 ML IV SCH ×2 (02:10→12:00)
[2021-12-30 04:38] LABS: Basophils # (auto) 0 10 ^3/uL (0-0.2); Basophils % (auto) 0.4 % (0.0-2.0); Eosinophils # (auto) 0.1 10 ^3/uL (0-0.8); Eosinophils % (auto) 0.6 % (0.0-7.0); Hematocrit 32.7 % (41.0-53.0); Hemoglobin 11.2 g/dL (13.5-17.5); Lymphocytes % (auto) 19.6 % (10.0-50.0); Mean Corpuscular Hemoglobin 30.5 pg (28.0-32.0); Mean Corpuscular Hgb Conc. 34.2 g/dL (32.0-36.0); Mean Corpuscular Volume 89.2 fL (80.0-100.0); Monocytes # (auto) 0.2 10 ^3/uL (0-1.3); Monocytes % (auto) 2.4 % (0.0-12.0); Neutrophils # (auto) 7.9 10 ^3/uL (1.6-8.6); Nucleated Red Blood Cells % 0.1 %; Red Blood Cells 3.67 10^6/uL (4.5-5.90); Red Cell Distribution Width 15.1 % (11.8-14.3); White Blood Cell 10.2 10^3/uL (4.4-10.8)
[2021-12-30 04:50] LABS: Albumin 2.9 g/dL (3.4-5.0); BUN/Creatinine Ratio 4.3; Calcium 8.3 mg/dL (8.5-10.1); Potassium 4.4 mmol/L (3.5-5.1)
[2021-12-30 04:53] LABS: Bilirubin, Total 0.6 mg/dL (0.2-1.0); Total Protein 6.9 g/dL (6.4-8.2)
[2021-12-30] MEDS: MIDODRINE HCL 10 MG TAB PO SCH ×3 (05:53→17:44)
[2021-12-30] MEDS: ACCU-CHEK COMFORT CURVE STRIP VI SCH ×4 (06:37→22:14)
[2021-12-30] MEDS: InsuLIN REG 1unit/0.01ml Soln (100units/ml) SC SCH ×4 (06:39→22:19)
[2021-12-30] MEDS: SEVELAMER 800 MG TAB PO SCH ×3 (08:00→17:45)
[2021-12-30] MEDS: OXYCODONE W/ ACETAMINOPHEN 5/325MG TABLET PO PRN ×3 (08:36→22:15)
[2021-12-30] MEDS: PIPERACILLIN-TAZOB 2.25GM 50 ML IV SCH ×2 (09:06→22:13)
[2021-12-30] MEDS: HEPARIN SODIUM (PORCINE) 5000 UNITS/ML 1ML VIAL SC SCH ×2 (09:06→22:17)
[2021-12-30] MEDS: INSULIN LANTUS (GLARGINE) 1 /0.01ml (100units/ml) SC SCH (09:07)
[2021-12-31] VITALS (49 sets, daily range): BP systolic 63–166; BP diastolic 17–90
[2021-12-31] MEDS: LINEZOLID 600MG/300ML 300 ML IV SCH ×2 (00:39→16:39)
[2021-12-31] MEDS: MIDODRINE HCL 10 MG TAB PO SCH ×3 (06:42→18:30)
[2021-12-31] MEDS: ACCU-CHEK COMFORT CURVE STRIP VI SCH ×4 (06:51→22:24)
[2021-12-31] MEDS: InsuLIN REG 1unit/0.01ml Soln (100units/ml) SC SCH ×4 (06:51→22:00)
[2021-12-31] MEDS ORDERED: NOREPINEPHRINE 8 MG/250ML KIT 250 ML IV SCH (07:00)
[2021-12-31 07:10] LABS: Basophils # (auto) 0.1 10 ^3/uL (0-0.2); Basophils % (auto) 0.6 % (0.0-2.0); Eosinophils # (auto) 0.1 10 ^3/uL (0-0.8); Eosinophils % (auto) 0.5 % (0.0-7.0); Hematocrit 40.9 % (41.0-53.0); Hemoglobin 13.6 g/dL (13.5-17.5); Lymphocytes # (auto) 4.9 10 ^3/uL (0.4-5.4); Lymphocytes % (auto) 36.9 % (10.0-50.0); Mean Corpuscular Hemoglobin 29.8 pg (28.0-32.0); Mean Corpuscular Hgb Conc. 33.1 g/dL (32.0-36.0); Mean Corpuscular Volume 89.9 fL (80.0-100.0); Monocytes # (auto) 0.5 10 ^3/uL (0-1.3); Monocytes % (auto) 3.6 % (0.0-12.0); Neutrophils # (auto) 7.7 10 ^3/uL (1.6-8.6); Neutrophils % (auto) 58.4 % (37.0-80.0); Nucleated Red Blood Cells % 0.1 %; Red Blood Cells 4.55 10^6/uL (4.5-5.90); Red Cell Distribution Width 14.9 % (11.8-14.3); White Blood Cell 13.3 10^3/uL (4.4-10.8)
[2021-12-31 07:26] LABS: Calcium 8.9 mg/dL (8.5-10.1)
[2021-12-31] MEDS: OXYCODONE W/ ACETAMINOPHEN 5/325MG TABLET PO PRN (07:51)
[2021-12-31] MEDS: PIPERACILLIN-TAZOB 2.25GM 50 ML IV SCH ×2 (09:43→22:22)
[2021-12-31] MEDS: HEPARIN SODIUM (PORCINE) 5000 UNITS/ML 1ML VIAL SC SCH ×2 (09:44→22:23)
[2021-12-31] MEDS: INSULIN LANTUS (GLARGINE) 1 /0.01ml (100units/ml) SC SCH (09:46)
[2021-12-31] MEDS ORDERED: METHADONE HCL 10 MG TAB PO SCH (10:00)
[2021-12-31] MEDS: SEVELAMER 800 MG TAB PO SCH ×3 (10:36→18:30)
[2022-01-01] VITALS (58 sets, daily range): BP systolic 58–192; BP diastolic 30–93
[2022-01-01] MEDS: MORPHINE SULFATE INJ 2 MG/ml SYRG IV PRN ×2 (03:34→05:37)
[2022-01-01] MEDS: MIDODRINE HCL 10 MG TAB PO SCH ×3 (06:28→18:00)
[2022-01-01] MEDS: ACCU-CHEK COMFORT CURVE STRIP VI SCH ×4 (06:35→21:34)
[2022-01-01] MEDS: InsuLIN REG 1unit/0.01ml Soln (100units/ml) SC SCH ×4 (06:35→21:39)
[2022-01-01] MEDS ORDERED: ALBUMIN 25% 100 ML IV PRN (06:45)
[2022-01-01] MEDS ORDERED: SODIUM CHL 0.9% 1000 ML BAG XX ONE (07:00)
[2022-01-01] MEDS ORDERED: SODIUM CHLORIDE 0.9% 1,000 ML IV ONE (09:00)
[2022-01-01] MEDS: PIPERACILLIN-TAZOB 2.25GM 50 ML IV SCH ×2 (09:21→21:34)
[2022-01-01] MEDS: SEVELAMER 800 MG TAB PO SCH ×3 (09:22→18:00)
[2022-01-01] MEDS: HEPARIN SODIUM (PORCINE) 5000 UNITS/ML 1ML VIAL SC SCH ×2 (09:24→21:33)
[2022-01-01] MEDS: INSULIN LANTUS (GLARGINE) 1 /0.01ml (100units/ml) SC SCH (11:00)
[2022-01-01] MEDS: LINEZOLID 600MG/300ML 300 ML IV SCH ×2 (13:16)
[2022-01-01] MEDS ORDERED: PANTOPRAZOLE 40 MG TAB PO ONE ×2 (14:00)
[2022-01-01] MEDS ORDERED: NICOTINE 21MG/24 HR TOPICAL PATCH TD ONE (14:45)
[2022-01-01] MEDS: ONDANSETRON HCL 4 MG/2 ML VIAL IV PRN (14:52)
[2022-01-01] MEDS ORDERED: ACETAMINOPHEN 500 MG TAB PO ONE (18:30)
[2022-01-02] VITALS (79 sets, daily range): BP systolic 59–144; BP diastolic 33–86
[2022-01-02] MEDS: LINEZOLID 600MG/300ML 300 ML IV SCH ×2 (01:30→11:53)
[2022-01-02 03:33] LABS: Basophils # (auto) 0.2 10 ^3/uL (0-0.2); Basophils % (auto) 1.4 % (0.0-2.0); Eosinophils # (auto) 0.2 10 ^3/uL (0-0.8); Eosinophils % (auto) 1.3 % (0.0-7.0); Hematocrit 39.2 % (41.0-53.0); Hemoglobin 13.3 g/dL (13.5-17.5); Lymphocytes # (auto) 4.8 10 ^3/uL (0.4-5.4); Lymphocytes % (auto) 39.1 % (10.0-50.0); Mean Corpuscular Hemoglobin 30.1 pg (28.0-32.0); Mean Corpuscular Hgb Conc. 33.9 g/dL (32.0-36.0); Mean Corpuscular Volume 88.8 fL (80.0-100.0); Monocytes # (auto) 0.6 10 ^3/uL (0-1.3); Monocytes % (auto) 4.8 % (0.0-12.0); Neutrophils # (auto) 6.5 10 ^3/uL (1.6-8.6); Neutrophils % (auto) 53.4 % (37.0-80.0); Nucleated Red Blood Cells % 0.1 %; Red Blood Cells 4.42 10^6/uL (4.5-5.90); White Blood Cell 12.2 10^3/uL (4.4-10.8)
[2022-01-02 03:54] LABS: Albumin 3.1 g/dL (3.4-5.0); Calcium 8.7 mg/dL (8.5-10.1); Potassium 4.2 mmol/L (3.5-5.1)
[2022-01-02 03:56] LABS: BUN/Creatinine Ratio 3.9
[2022-01-02 03:59] LABS: Bilirubin, Total 0.6 mg/dL (0.2-1.0); Total Protein 7.6 g/dL (6.4-8.2)
[2022-01-02] MEDS: MIDODRINE HCL 10 MG TAB PO SCH ×3 (05:34→17:59)
[2022-01-02] MEDS: InsuLIN REG 1unit/0.01ml Soln (100units/ml) SC SCH ×4 (06:33→21:52)
[2022-01-02] MEDS: ACCU-CHEK COMFORT CURVE STRIP VI SCH ×4 (06:33→21:52)
[2022-01-02] MEDS: SEVELAMER 800 MG TAB PO SCH ×3 (08:00→17:59)
[2022-01-02] MEDS: PIPERACILLIN-TAZOB 2.25GM 50 ML IV SCH ×2 (09:47→21:52)
[2022-01-02] MEDS: PANTOPRAZOLE 40 MG TAB PO SCH (10:00)
[2022-01-02] MEDS: HEPARIN SODIUM (PORCINE) 5000 UNITS/ML 1ML VIAL SC SCH ×2 (10:00→21:53)
[2022-01-02] MEDS ORDERED: NOREPINEPHRINE 8 MG/250ML KIT 250 ML IV SCH (11:15)
[2022-01-02] MEDS: INSULIN LANTUS (GLARGINE) 1 /0.01ml (100units/ml) SC SCH (11:52)
[2022-01-02] MEDS: NICOTINE 21MG/24 HR TOPICAL PATCH TD SCH (11:52)
[2022-01-02] MEDS: clonazePAM 0.5 MG TAB PO PRN ×2 (11:53→19:58)
[2022-01-02] MEDS: OXYCODONE W/ ACETAMINOPHEN 5/325MG TABLET PO PRN ×2 (14:44→19:58)
[2022-01-02] MEDS: ONDANSETRON HCL 4 MG/2 ML VIAL IV PRN (19:24)
[2022-01-03] VITALS (89 sets, daily range): BP systolic 70–147; BP diastolic 32–84
[2022-01-03] MEDS: LINEZOLID 600MG/300ML 300 ML IV SCH ×2 (00:13→12:44)
[2022-01-03] MEDS: MORPHINE SULFATE INJ 2 MG/ml SYRG IV PRN ×3 (02:08→17:35)
[2022-01-03] MEDS: ONDANSETRON HCL 4 MG/2 ML VIAL IV PRN ×3 (02:08→21:53)
[2022-01-03] MEDS ORDERED: IBUPROFEN 800 MG TAB PO ONE (02:55)
[2022-01-03] MEDS ORDERED: IBUPROFEN 400 MG TAB PO ONE (03:15)
[2022-01-03] MEDS: MIDODRINE HCL 10 MG TAB PO SCH ×4 (06:00→18:38)
[2022-01-03] MEDS: ACCU-CHEK COMFORT CURVE STRIP VI SCH ×4 (06:15→21:49)
[2022-01-03] MEDS: InsuLIN REG 1unit/0.01ml Soln (100units/ml) SC SCH ×4 (06:16→21:50)
[2022-01-03] MEDS ORDERED: MIDODRINE HCL 10 MG TAB PO ONE (09:00)
[2022-01-03] MEDS ORDERED: ALBUMIN 5% 250 ML IV ONE (09:30)
[2022-01-03] MEDS: INSULIN LANTUS (GLARGINE) 1 /0.01ml (100units/ml) SC SCH (10:00)
[2022-01-03] MEDS: CHOLESTYRAMINE 4 GM POWDER GT SCH (10:04)
[2022-01-03] MEDS: NICOTINE 21MG/24 HR TOPICAL PATCH TD SCH (10:05)
[2022-01-03] MEDS: PIPERACILLIN-TAZOB 2.25GM 50 ML IV SCH ×2 (10:06→21:50)
[2022-01-03] MEDS: PANTOPRAZOLE 40 MG TAB PO SCH (10:08)
[2022-01-03] MEDS: OXYCODONE W/ ACETAMINOPHEN 5/325MG TABLET PO PRN (10:08)
[2022-01-03] MEDS: HEPARIN SODIUM (PORCINE) 5000 UNITS/ML 1ML VIAL SC SCH ×2 (10:26→21:50)
[2022-01-03] MEDS: SEVELAMER 800 MG TAB PO SCH ×4 (11:22→18:38)
[2022-01-03] MEDS: FLUDROCORTISONE ACETATE 0.1 MG TAB PO SCH (14:32)
[2022-01-03] MEDS: ALBUMIN 25% 50 ML IV SCH ×2 (14:32→21:36)
[2022-01-04] VITALS (76 sets, daily range): BP systolic 66–120; BP diastolic 38–71
[2022-01-04] MEDS: LINEZOLID 600MG/300ML 300 ML IV SCH (00:30)
[2022-01-04 05:00] LABS: Basophils # (auto) 0.2 10 ^3/uL (0-0.2); Basophils % (auto) 1.8 % (0.0-2.0); Eosinophils # (auto) 0.2 10 ^3/uL (0-0.8); Eosinophils % (auto) 1.2 % (0.0-7.0); Hematocrit 40.9 % (41.0-53.0); Hemoglobin 13.8 g/dL (13.5-17.5); Lymphocytes # (auto) 3.9 10 ^3/uL (0.4-5.4); Mean Corpuscular Hemoglobin 29.9 pg (28.0-32.0); Mean Corpuscular Hgb Conc. 33.6 g/dL (32.0-36.0); Monocytes # (auto) 0.5 10 ^3/uL (0-1.3); Monocytes % (auto) 4.1 % (0.0-12.0); Neutrophils # (auto) 7.9 10 ^3/uL (1.6-8.6); Neutrophils % (auto) 61.9 % (37.0-80.0); Red Cell Distribution Width 14.5 % (11.8-14.3); White Blood Cell 12.8 10^3/uL (4.4-10.8)
[2022-01-04 05:11] LABS: BUN/Creatinine Ratio 4.2; Calcium 8.7 mg/dL (8.5-10.1); Potassium 5.1 mmol/L (3.5-5.1)
[2022-01-04] MEDS: ALBUMIN 25% 50 ML IV SCH (05:40)
[2022-01-04] MEDS: MIDODRINE HCL 10 MG TAB PO SCH ×3 (05:49→18:21)
[2022-01-04] MEDS: ACCU-CHEK COMFORT CURVE STRIP VI SCH ×4 (06:20→22:05)
[2022-01-04] MEDS: InsuLIN REG 1unit/0.01ml Soln (100units/ml) SC SCH ×4 (06:22→22:02)
[2022-01-04] MEDS ORDERED: SODIUM CHL 0.9% 1000 ML BAG XX ONE (08:00)
[2022-01-04] MEDS ORDERED: ALBUMIN 25% 100 ML IV SCH (09:00)
[2022-01-04] MEDS ORDERED: ALBUMIN 25% 50 ML IV PRN (09:45)
[2022-01-04] MEDS: INSULIN LANTUS (GLARGINE) 1 /0.01ml (100units/ml) SC SCH (10:00)
[2022-01-04] MEDS: FLUDROCORTISONE ACETATE 0.1 MG TAB PO SCH (10:55)
[2022-01-04] MEDS: CHOLESTYRAMINE 4 GM POWDER GT SCH (10:55)
[2022-01-04] MEDS: PANTOPRAZOLE 40 MG TAB PO SCH (10:55)
[2022-01-04] MEDS: SEVELAMER 800 MG TAB PO SCH ×3 (10:56→18:21)
[2022-01-04] MEDS: NICOTINE 21MG/24 HR TOPICAL PATCH TD SCH (10:56)
[2022-01-04] MEDS: OXYCODONE W/ ACETAMINOPHEN 5/325MG TABLET PO PRN ×3 (10:58→22:49)
[2022-01-04] MEDS: HEPARIN SODIUM (PORCINE) 5000 UNITS/ML 1ML VIAL SC SCH ×2 (10:59→22:05)
[2022-01-04] MEDS: clonazePAM 0.5 MG TAB PO PRN (20:24)
[2022-01-04] MEDS: ONDANSETRON HCL 4 MG/2 ML VIAL IV PRN (20:24)
[2022-01-05] VITALS (30 sets, daily range): BP systolic 82–127; BP diastolic 40–75
[2022-01-05 04:39] LABS: BUN/Creatinine Ratio 3.8; Calcium 8.9 mg/dL (8.5-10.1); Magnesium 1.8 mg/dL (1.6-2.6); Potassium 4.9 mmol/L (3.5-5.1)
[2022-01-05] MEDS: OXYCODONE W/ ACETAMINOPHEN 5/325MG TABLET PO PRN ×3 (04:59→19:48)
[2022-01-05] MEDS: MIDODRINE HCL 10 MG TAB PO SCH ×3 (05:31→18:15)
[2022-01-05] MEDS: ACCU-CHEK COMFORT CURVE STRIP VI SCH ×4 (06:00→21:51)
[2022-01-05] MEDS: InsuLIN REG 1unit/0.01ml Soln (100units/ml) SC SCH ×4 (06:23→21:51)
[2022-01-05] MEDS: FLUDROCORTISONE ACETATE 0.1 MG TAB PO SCH (09:13)
[2022-01-05] MEDS: SEVELAMER 800 MG TAB PO SCH ×3 (09:13→18:15)
[2022-01-05] MEDS: PANTOPRAZOLE 40 MG TAB PO SCH (09:13)
[2022-01-05] MEDS: NICOTINE 21MG/24 HR TOPICAL PATCH TD SCH (09:14)
[2022-01-05] MEDS: HEPARIN SODIUM (PORCINE) 5000 UNITS/ML 1ML VIAL SC SCH ×2 (09:22→21:54)
[2022-01-05] MEDS ORDERED: INSULIN LANTUS (GLARGINE) 1 /0.01ml (100units/ml) SC SCH (10:00)
[2022-01-05] MEDS: CHOLESTYRAMINE 4 GM POWDER GT SCH (12:11)
[2022-01-05] MEDS ORDERED: LOPERAMIDE HCL 2 MG CAP/TAB PO SCH (15:00)
[2022-01-05] MEDS: SUCRALFATE 1 GM TAB PO SCH ×2 (16:24→21:51)
[2022-01-05] MEDS: clonazePAM 0.5 MG TAB PO PRN (18:15)
[2022-01-06] MEDS: OXYCODONE W/ ACETAMINOPHEN 5/325MG TABLET PO PRN (01:51)
[2022-01-06] MEDS ORDERED: PANTOPRAZOLE 40 MG/10 ML VIAL INJ IV SCH (10:00)
== END 2022-01-06 04:15 | disposition left against medical advice (07) | DRG 871 ==
LOC: ER 13:08 → EDBD 13:08 → TELE 19:37 → ICU WEST 23:50 → WEST WING 01-05 22:40
PROVIDERS: ADMIT Nurse Practitioner Family; ATTEND Nurse Practitioner Acute Care
PROC: 5A1D70Z Performance of Urinary Filtration, Intermittent, Less than 6 Hours Per Day (ICD-10-PCS; principal; 2021-12-27)
PROC: 5A1D70Z Performance of Urinary Filtration, Intermittent, Less than 6 Hours Per Day (ICD-10-PCS; 2021-12-29)
PROC: 5A1D70Z Performance of Urinary Filtration, Intermittent, Less than 6 Hours Per Day (ICD-10-PCS; 2022-01-01)
PROC: 5A1D70Z Performance of Urinary Filtration, Intermittent, Less than 6 Hours Per Day (ICD-10-PCS; 2022-01-04)
DX: A41.9 Sepsis, unspecified organism (principal); E11.10 Type 2 diabetes mellitus with ketoacidosis without coma; R65.21 Severe sepsis with septic shock; G93.41 Metabolic encephalopathy; N18.6 End stage renal disease; J18.9 Pneumonia, unspecified organism; E43 Unspecified severe protein-calorie malnutrition; I12.0 Hypertensive chronic kidney disease with stage 5 chronic kidney disease or end stage renal disease; E11.22 Type 2 diabetes mellitus with diabetic chronic kidney disease; E87.5 Hyperkalemia; E83.39 Other disorders of phosphorus metabolism; F41.9 Anxiety disorder, unspecified; R55 Syncope and collapse; D64.9 Anemia, unspecified; E78.5 Hyperlipidemia, unspecified; E86.0 Dehydration; Z20.822 Contact with and (suspected) exposure to COVID-19; F17.210 Nicotine dependence, cigarettes, uncomplicated; J45.909 Unspecified asthma, uncomplicated; K43.9 Ventral hernia without obstruction or gangrene; Z53.29 Procedure and treatment not carried out because of patient's decision for other reasons; K21.9 Gastro-esophageal reflux disease without esophagitis; Z82.49 Family history of ischemic heart disease and other diseases of the circulatory system; Z99.2 Dependence on renal dialysis; Z68.21 Body mass index [BMI] 21.0-21.9, adult; Z88.1 Allergy status to other antibiotic agents; Z80.1 Family history of malignant neoplasm of trachea, bronchus and lung; Z83.3 Family history of diabetes mellitus; Z85.038 Personal history of other malignant neoplasm of large intestine; Z91.15 Patient's noncompliance with renal dialysis; Z91.199 Patient's noncompliance with other medical treatment and regimen due to unspecified reason; Z93.2 Ileostomy status
CPT/HCPCS: 36415; 36600; 70450; 71045; 80048; 80053; 82010; 82805; 82962; 83036; 83605; 83735; 83880; 83930; 83970; 84100; 84484; 85025; 87040; 87081; 87340; 87426; 90935; 93005; 94640; 96361; 96365; 96375; 99291; C9113; G0378; J1642; J1815; J2405; J2543; P9047

== ENCOUNTER 2022-01-07 08:54 | Inpatient (IN) | payer OTHER, MEDICAID ==
[~2022-01-07] VITALS: Ht 175.3 cm; Wt 73.0 kg
[2022-01-07] MEDS ORDERED: NALOXONE HCL 1MG/ML 2ML SYRINGE ONE (09:01)
[2022-01-07] MEDS ORDERED: CALCIUM CHLOR(10%) 100MG/ML 10ML SYRINGE IV ONE (09:08)
[2022-01-07] MEDS ORDERED: SODIUM BICARBONATE 8.4% INJ 50ML SYRINGE ONE (09:10)
[2022-01-07] MEDS ORDERED: NOREPINEPHRINE 8 MG/250ML KIT 250 ML IV ONE (09:11)
[2022-01-07 09:28] LABS: Hematocrit 38.4 % (41.0-53.0); Hemoglobin 13.1 g/dL (13.5-17.5); Mean Corpuscular Hemoglobin 30.5 pg (28.0-32.0); Mean Corpuscular Hgb Conc. 34.2 g/dL (32.0-36.0); Red Blood Cells 4.31 10^6/uL (4.5-5.90); Red Cell Distribution Width 14.4 % (11.8-14.3); White Blood Cell 8.7 10^3/uL (4.4-10.8)
[2022-01-07] MEDS ORDERED: NALOXONE HCL 1MG/ML 2ML SYRINGE IV ONE (09:30)
[2022-01-07] MEDS ORDERED: NOREPINEPHRINE 8 MG/250ML KIT 250 ML IV SCH (09:30)
[2022-01-07] MEDS ORDERED: SODIUM BICARBONATE 8.4 % INJ 50ML VIAL IV ONE (09:30)
[2022-01-07] MEDS ORDERED: SODIUM CHLORIDE 0.9% 1,000 ML IV ONE ×2 (09:30→15:45)
[2022-01-07] MEDS ORDERED: CALCIUM CHL 100MG/ML 1,000 MG in D5W 5% 100 ML IV ONE (09:30)
[2022-01-07] MEDS ORDERED: LIDOCAINE 2% JELLY 11ml (GLYDO) ONE (09:35)
[2022-01-07 09:40] LABS: Basophils % (manual) 0 (0.0-2.0); Blast Cells 0; Metamyelocytes % 0; Myelocytes % 0; Promyelocytes % 0; Reactive Lymphocytes 0
[2022-01-07 09:44] LABS: Albumin 2.9 g/dL (3.4-5.0); Anion Gap 13 (5-15); Blood Alcohol < 3.0 mg/dL (0-5); Blood Urea Nitrogen 51 mg/dL (7-18); Calcium 8.8 mg/dL (8.5-10.1); Carbon Dioxide 29 mmol/L (21-32); Chloride 94 mmol/L (98-107); Glucose 132 mg/dL (74-106); Potassium 4.4 mmol/L (3.5-5.1); Sodium 136 mmol/L (136-145)
[2022-01-07 09:50] LABS: Alanine Aminotransferase 10 U/L (16-61); Alkaline Phosphatase 221 U/L (45-117); Aspartate Aminotransferase 20 U/L (15-37); BUN/Creatinine Ratio 4.6; Bilirubin, Total 0.9 mg/dL (0.2-1.0); GFR African American 6 mL/min; GFR Non-African American 5 mL/min; Total Protein 6.6 g/dL (6.4-8.2)
[2022-01-07 10:13] LABS: Band Neutrophils % (manual) 6; Eosinophils % (manual) 1 (0-7); Lymphocytes % (manual) 20 (10.0-50.0); Monocytes % (manual) 8 (0-12)
[2022-01-07] MEDS ORDERED: ACETAMINOPHEN 650 MG RECT SUPP PR ONE (10:45)
[2022-01-07 12:25] LABS: Urine Bacteria NONE SEEN /hpf (None Seen); Urine Blood 3+ /uL (Negative); Urine Mucus FEW (None Seen); Urine Specific Gravity 1.021 (1.001-1.035); Urine WBC 854 /hpf (0 - 3); Urine WBC Clumps PRESENT /hpf (None Seen)
[2022-01-07] MEDS ORDERED: VANCOMYCIN PER PHARMACY 0 MG IV SCH (13:00)
[2022-01-07] MEDS ORDERED: PIPERACILLIN-TAZO 4.5GM 100 ML IV ONE (13:00)
[2022-01-07] MEDS ORDERED: VANCOMYCIN 1GM/250ML 250 ML IV ONE (14:00)
[2022-01-07] MEDS: NOREPINEPHRINE BITARTRATE 16 MG in SODIUM CHL 0.9% 234 ML IV SCH (14:06)
[2022-01-07 14:16] LABS: Lactic Acid w/Reflex 3.4 mmol/L (0.4-2.0)
[2022-01-07] MEDS ORDERED: ALBUMIN 25% 50 ML IV ONE (15:45)
[2022-01-07] MEDS ORDERED: NITROGLYCERIN 0.4 MG SL TAB SL PRN (15:45)
[2022-01-07] MEDS ORDERED: DEXTROSE (50%) 50ML SYRG IV PRN (16:00)
[2022-01-07 16:56] LABS: Lactic Acid w/Reflex 5.8 mmol/L (0.4-2.0)
[2022-01-07] MEDS: ACCU-CHEK COMFORT CURVE STRIP VI SCH ×2 (18:12→22:13)
[2022-01-07] MEDS: InsuLIN REG 1unit/0.01ml Soln (100units/ml) SC SCH ×2 (18:12→22:21)
[2022-01-07] MEDS: PIPERACILLIN-TAZOB 2.25GM 50 ML IV SCH (21:02)
[2022-01-07] MEDS ORDERED: HEPARIN SODIUM (PORCINE) 5000 UNITS/ML 1ML VIAL SC SCH (22:00)
[2022-01-07] MEDS: FERROUS SULFATE 325mg EC TAB PO SCH (22:00)
[2022-01-07] MEDS: APIXABAN 5 MG TAB PO SCH (22:00)
[2022-01-07] MEDS: GABAPENTIN 300 MG CAP PO SCH (22:00)
[2022-01-07] MEDS: LINEZOLID 600MG/300ML 300 ML IV SCH (22:42)
[2022-01-07] MEDS ORDERED: ENOXAPARIN SOD 40 MG/0.4 ML SYRINGE SC ONE (23:30)
[2022-01-08 03:52] LABS: Hematocrit 41.8 % (41.0-53.0); Hemoglobin 14.1 g/dL (13.5-17.5); Mean Corpuscular Hgb Conc. 33.7 g/dL (32.0-36.0); Mean Corpuscular Volume 88.9 fL (80.0-100.0); Red Cell Distribution Width 14.8 % (11.8-14.3); White Blood Cell 25.4 10^3/uL (4.4-10.8)
[2022-01-08 04:09] LABS: Albumin 2.7 g/dL (3.4-5.0); Calcium 9.1 mg/dL (8.5-10.1); Potassium 5.3 mmol/L (3.5-5.1)
[2022-01-08 04:13] LABS: Total Protein 6.7 g/dL (6.4-8.2)
[2022-01-08 04:15] LABS: Basophils % (manual) 0 (0.0-2.0); Blast Cells 0; Eosinophils % (manual) 0 (0-7); Metamyelocytes % 0; Myelocytes % 0; Promyelocytes % 0; Reactive Lymphocytes 0
[2022-01-08] MEDS: PIPERACILLIN-TAZOB 2.25GM 50 ML IV SCH ×3 (05:40→21:15)
[2022-01-08 05:51] LABS: Band Neutrophils % (manual) 36
[2022-01-08 05:52] LABS: Lymphocytes % (manual) 6 (10.0-50.0); Monocytes % (manual) 7 (0-12)
[2022-01-08] MEDS: FERROUS SULFATE 325mg EC TAB PO SCH ×3 (06:00→22:01)
[2022-01-08] MEDS: GABAPENTIN 300 MG CAP PO SCH ×3 (06:00→22:01)
[2022-01-08] MEDS: InsuLIN REG 1unit/0.01ml Soln (100units/ml) SC SCH ×4 (07:56→22:00)
[2022-01-08] MEDS: ACCU-CHEK COMFORT CURVE STRIP VI SCH ×4 (07:58→22:00)
[2022-01-08] MEDS: NOREPINEPHRINE BITARTRATE 16 MG in SODIUM CHL 0.9% 234 ML IV SCH (07:58)
[2022-01-08] MEDS: APIXABAN 5 MG TAB PO SCH ×2 (10:00→22:01)
[2022-01-08] MEDS ORDERED: PATIENTS OWN MEDICATION (Methocarbamol 750 MG) PO SCH (10:00)
[2022-01-08] MEDS ORDERED: ENOXAPARIN SOD 40 MG/0.4 ML SYRINGE SC SCH (10:00)
[2022-01-08] MEDS: LINEZOLID 600MG/300ML 300 ML IV SCH ×2 (10:40→22:01)
[2022-01-08] MEDS ORDERED: SODIUM CHL 0.9% 1000 ML BAG XX ONE (12:00)
[2022-01-08] MEDS ORDERED: ALBUMIN 25% 100 ML IV PRN (12:00)
[2022-01-08] MEDS: CALCITRIOL 0.25 MCG CAP PO SCH (12:16)
[2022-01-08] MEDS: LEVOTHYROXINE SODIUM 100 MCG TAB PO SCH (12:16)
[2022-01-08] MEDS: MIDODRINE HCL 10 MG TAB PO SCH (18:00)
[2022-01-08] MEDS ORDERED: ENOXAPARIN SOD 30 MG/0.3 ML SYRINGE SC SCH (22:00)
[2022-01-08] MEDS: MORPHINE SULFATE INJ 2 MG/ml SYRG IV PRN (23:42)
[2022-01-09] VITALS (70 sets, daily range): BP systolic 82–172; BP diastolic 38–98
[2022-01-09] MEDS: PIPERACILLIN-TAZOB 2.25GM 50 ML IV SCH ×3 (04:45→21:00)
[2022-01-09] MEDS: GABAPENTIN 300 MG CAP PO SCH ×3 (06:05→21:54)
[2022-01-09] MEDS: MIDODRINE HCL 10 MG TAB PO SCH ×3 (06:05→18:25)
[2022-01-09] MEDS: FERROUS SULFATE 325mg EC TAB PO SCH ×3 (06:05→21:55)
[2022-01-09] MEDS: MORPHINE SULFATE INJ 2 MG/ml SYRG IV PRN (06:40)
[2022-01-09] MEDS: ACCU-CHEK COMFORT CURVE STRIP VI SCH ×4 (07:03→21:55)
[2022-01-09] MEDS: InsuLIN REG 1unit/0.01ml Soln (100units/ml) SC SCH ×4 (07:04→22:09)
[2022-01-09] MEDS: LINEZOLID 600MG/300ML 300 ML IV SCH ×2 (09:07→21:54)
[2022-01-09] MEDS: CALCITRIOL 0.25 MCG CAP PO SCH (09:08)
[2022-01-09] MEDS: LEVOTHYROXINE SODIUM 100 MCG TAB PO SCH (09:08)
[2022-01-09] MEDS: APIXABAN 5 MG TAB PO SCH ×2 (09:08→21:55)
[2022-01-09] MEDS: FLUoxetine HCL 20 MG CAP PO SCH (10:00)
[2022-01-09] MEDS: OXYCODONE W/ ACETAMINOPHEN 5/325MG TABLET PO PRN ×3 (10:00→21:00)
[2022-01-09] MEDS ORDERED: CHOLESTYRAMINE 4 GM POWDER PO ONE (10:00)
[2022-01-09 10:53] LABS: Hematocrit 35.5 % (41.0-53.0); Hemoglobin 11.7 g/dL (13.5-17.5); Mean Corpuscular Hemoglobin 29.6 pg (28.0-32.0); Mean Corpuscular Hgb Conc. 32.9 g/dL (32.0-36.0); Red Blood Cells 3.94 10^6/uL (4.5-5.90); Red Cell Distribution Width 14.6 % (11.8-14.3); White Blood Cell 12.5 10^3/uL (4.4-10.8)
[2022-01-09 10:59] LABS: Magnesium 1.4 mg/dL (1.6-2.6)
[2022-01-09 11:01] LABS: Phosphorus 3.3 mg/dL (2.5-4.90)
[2022-01-09 11:23] LABS: Albumin 2.3 g/dL (3.4-5.0); Calcium 8.5 mg/dL (8.5-10.1); Potassium 4.2 mmol/L (3.5-5.1)
[2022-01-09 11:27] LABS: BUN/Creatinine Ratio 5.8; Bilirubin, Total 0.8 mg/dL (0.2-1.0); Total Protein 5.9 g/dL (6.4-8.2)
[2022-01-09 12:05] LABS: Basophils % (manual) 0 (0.0-2.0); Blast Cells 0; Myelocytes % 0; Promyelocytes % 0; Reactive Lymphocytes 0
[2022-01-09 15:50] LABS: Band Neutrophils % (manual) 3; Eosinophils % (manual) 2 (0-7); Lymphocytes % (manual) 12 (10.0-50.0); Metamyelocytes % 1; Monocytes % (manual) 4 (0-12)
[2022-01-09] MEDS: NOREPINEPHRINE BITARTRATE 16 MG in SODIUM CHL 0.9% 234 ML IV SCH (21:00)
[2022-01-09] MEDS ORDERED: TEMAZEPAM 15 MG CAP PO ONE (21:15)
[2022-01-10] VITALS (93 sets, daily range): BP systolic 61–142; BP diastolic 33–83
[2022-01-10] MEDS: PIPERACILLIN-TAZOB 2.25GM 50 ML IV SCH (05:20)
[2022-01-10] MEDS: MIDODRINE HCL 10 MG TAB PO SCH ×3 (05:43→17:46)
[2022-01-10] MEDS: GABAPENTIN 300 MG CAP PO SCH ×3 (05:43→21:44)
[2022-01-10] MEDS: FERROUS SULFATE 325mg EC TAB PO SCH ×3 (05:43→21:44)
[2022-01-10] MEDS: ACCU-CHEK COMFORT CURVE STRIP VI SCH ×4 (06:47→21:44)
[2022-01-10] MEDS: InsuLIN REG 1unit/0.01ml Soln (100units/ml) SC SCH ×4 (06:48→21:47)
[2022-01-10] MEDS ORDERED: SODIUM CHL 0.9% 1000 ML BAG XX ONE (07:00)
[2022-01-10] MEDS: LEVOTHYROXINE SODIUM 100 MCG TAB PO SCH (09:21)
[2022-01-10] MEDS: CALCITRIOL 0.25 MCG CAP PO SCH (09:21)
[2022-01-10] MEDS: FLUoxetine HCL 20 MG CAP PO SCH (09:21)
[2022-01-10] MEDS: LINEZOLID 600MG/300ML 300 ML IV SCH (09:21)
[2022-01-10] MEDS: APIXABAN 5 MG TAB PO SCH ×2 (09:22→21:44)
[2022-01-10] MEDS ORDERED: ALBUMIN 25% 100 ML IV PRN (10:00)
[2022-01-10] MEDS ORDERED: TOBRAMYCIN PER PHARMACY 0 ML IV SCH (10:30)
[2022-01-10] MEDS: ERGOCALCIFEROL 50,000 UNIT(1.25MG) CAP PO SCH (11:25)
[2022-01-10] MEDS ORDERED: TOBRAMYCIN IV ONE (12:00)
[2022-01-10] MEDS ORDERED: D5W 5% IV ONE (12:00)
[2022-01-10] MEDS: NOREPINEPHRINE BITARTRATE 16 MG in SODIUM CHL 0.9% 234 ML IV SCH (13:30)
[2022-01-10] MEDS: OXYCODONE W/ ACETAMINOPHEN 5/325MG TABLET PO PRN ×2 (13:49→21:02)
[2022-01-10] MEDS ORDERED: CeftoloZANE-TAZOB 0.375 GM in D5W 5% 100 ML IV SCH (18:00)
[2022-01-10] MEDS: Nepro With Carbsteady ButterPecan 8oz Carton PO SCH (18:08)
[2022-01-10] MEDS ORDERED: TEMAZEPAM 15 MG CAP PO ONE (22:15)
[2022-01-11] VITALS (88 sets, daily range): BP systolic 74–163; BP diastolic 32–84
[2022-01-11] MEDS: OXYCODONE W/ ACETAMINOPHEN 5/325MG TABLET PO PRN ×5 (05:29→23:04)
[2022-01-11] MEDS: ACCU-CHEK COMFORT CURVE STRIP VI SCH ×4 (05:33→22:05)
[2022-01-11] MEDS: InsuLIN REG 1unit/0.01ml Soln (100units/ml) SC SCH ×4 (05:36→22:06)
[2022-01-11 05:37] LABS: Basophils # (auto) 0.1 10 ^3/uL (0-0.2); Basophils % (auto) 1.1 % (0.0-2.0); Eosinophils # (auto) 0.2 10 ^3/uL (0-0.8); Eosinophils % (auto) 1.6 % (0.0-7.0); Hematocrit 34.9 % (41.0-53.0); Hemoglobin 11.6 g/dL (13.5-17.5); Lymphocytes # (auto) 3.3 10 ^3/uL (0.4-5.4); Lymphocytes % (auto) 24.8 % (10.0-50.0); Mean Corpuscular Hemoglobin 29.8 pg (28.0-32.0); Mean Corpuscular Hgb Conc. 33.2 g/dL (32.0-36.0); Mean Corpuscular Volume 89.6 fL (80.0-100.0); Monocytes # (auto) 0.6 10 ^3/uL (0-1.3); Monocytes % (auto) 4.8 % (0.0-12.0); Neutrophils % (auto) 67.7 % (37.0-80.0); Nucleated Red Blood Cells % 0.1 %; Red Blood Cells 3.89 10^6/uL (4.5-5.90); Red Cell Distribution Width 14.4 % (11.8-14.3); White Blood Cell 13.2 10^3/uL (4.4-10.8)
[2022-01-11 05:45] LABS: BUN/Creatinine Ratio 5.5; Calcium 8.4 mg/dL (8.5-10.1); Potassium 4.6 mmol/L (3.5-5.1)
[2022-01-11] MEDS: FERROUS SULFATE 325mg EC TAB PO SCH ×3 (06:59→22:03)
[2022-01-11] MEDS: MIDODRINE HCL 10 MG TAB PO SCH ×3 (07:00→17:20)
[2022-01-11] MEDS: GABAPENTIN 300 MG CAP PO SCH ×3 (07:00→22:03)
[2022-01-11] MEDS: Nepro With Carbsteady ButterPecan 8oz Carton PO SCH ×3 (08:22→17:21)
[2022-01-11] MEDS: LEVOTHYROXINE SODIUM 100 MCG TAB PO SCH (09:22)
[2022-01-11] MEDS: FLUoxetine HCL 20 MG CAP PO SCH (09:22)
[2022-01-11] MEDS: CALCITRIOL 0.25 MCG CAP PO SCH (09:22)
[2022-01-11] MEDS: APIXABAN 5 MG TAB PO SCH ×2 (09:22→22:03)
[2022-01-11] MEDS ORDERED: CeftoloZANE-TAZOB 0.75 GM in D5W 5% 100 ML IV ONE (10:00)
[2022-01-11] MEDS: CHOLESTYRAMINE 4 GM POWDER PO SCH (10:48)
[2022-01-11] MEDS ORDERED: NOREPINEPHRINE 8 MG/250ML KIT 250 ML IV ONE (11:14)
[2022-01-11] MEDS ORDERED: fentaNYL Drip 2500mCg/250mlNS 250 ML IV ONE (11:14)
[2022-01-11] MEDS ORDERED: MIDAZOLAM DRIP 50 mg/50mL 50 ML IV ONE (11:14)
[2022-01-11] MEDS: NOREPINEPHRINE BITARTRATE 16 MG in SODIUM CHL 0.9% 234 ML IV SCH (13:30)
[2022-01-11] MEDS: clonazePAM 0.5 MG TAB PO PRN (16:47)
[2022-01-11] MEDS: CeftoloZANE-TAZOB 0.375 GM in D5W 5% 100 ML IV SCH (17:20)
[2022-01-11] MEDS ORDERED: CeftoloZANE-TAZOB 1g/0.5g in D5W 5% 100 ML IV SCH (18:00)
[2022-01-11] MEDS ORDERED: CeftoloZANE-TAZOB 0.375 GM in D5W 5% 100 ML IV SCH (18:00)
[2022-01-11] MEDS ORDERED: NICOTINE 21MG/24 HR TOPICAL PATCH TD ONE (21:30)
[2022-01-12] VITALS (94 sets, daily range): BP systolic 75–128; BP diastolic 22–97
[2022-01-12] MEDS: CeftoloZANE-TAZOB 0.375 GM in D5W 5% 100 ML IV SCH ×3 (01:40→18:15)
[2022-01-12 04:54] LABS: Basophils # (auto) 0.1 10 ^3/uL (0-0.2); Basophils % (auto) 1.1 % (0.0-2.0); Eosinophils # (auto) 0.1 10 ^3/uL (0-0.8); Eosinophils % (auto) 1.6 % (0.0-7.0); Hematocrit 33.1 % (41.0-53.0); Hemoglobin 11.5 g/dL (13.5-17.5); Lymphocytes % (auto) 34.2 % (10.0-50.0); Mean Corpuscular Hemoglobin 30.6 pg (28.0-32.0); Mean Corpuscular Hgb Conc. 34.8 g/dL (32.0-36.0); Monocytes # (auto) 0.6 10 ^3/uL (0-1.3); Monocytes % (auto) 7.3 % (0.0-12.0); Neutrophils # (auto) 4.9 10 ^3/uL (1.6-8.6); Neutrophils % (auto) 55.8 % (37.0-80.0); Red Blood Cells 3.76 10^6/uL (4.5-5.90); Red Cell Distribution Width 14.4 % (11.8-14.3); White Blood Cell 8.8 10^3/uL (4.4-10.8)
[2022-01-12 05:16] LABS: Calcium 8.7 mg/dL (8.5-10.1); Potassium 4.3 mmol/L (3.5-5.1)
[2022-01-12 05:18] LABS: BUN/Creatinine Ratio 6.3
[2022-01-12] MEDS: FERROUS SULFATE 325mg EC TAB PO SCH ×3 (06:23→21:15)
[2022-01-12] MEDS: MIDODRINE HCL 10 MG TAB PO SCH ×3 (06:24→18:14)
[2022-01-12] MEDS: GABAPENTIN 300 MG CAP PO SCH ×3 (06:24→21:14)
[2022-01-12] MEDS: ACCU-CHEK COMFORT CURVE STRIP VI SCH ×4 (06:25→22:25)
[2022-01-12] MEDS: InsuLIN REG 1unit/0.01ml Soln (100units/ml) SC SCH ×4 (06:26→22:23)
[2022-01-12] MEDS ORDERED: SODIUM CHL 0.9% 1000 ML BAG XX ONE (07:00)
[2022-01-12] MEDS: Nepro With Carbsteady ButterPecan 8oz Carton PO SCH ×3 (08:00→18:00)
[2022-01-12] MEDS: OXYCODONE W/ ACETAMINOPHEN 5/325MG TABLET PO PRN ×3 (09:24→21:15)
[2022-01-12] MEDS: APIXABAN 5 MG TAB PO SCH ×2 (11:29→21:14)
[2022-01-12] MEDS: CHOLESTYRAMINE 4 GM POWDER PO SCH (11:29)
[2022-01-12] MEDS: FLUoxetine HCL 20 MG CAP PO SCH (11:29)
[2022-01-12] MEDS: LEVOTHYROXINE SODIUM 100 MCG TAB PO SCH (11:29)
[2022-01-12] MEDS: NICOTINE 21MG/24 HR TOPICAL PATCH TD SCH (11:31)
[2022-01-12] MEDS: CALCITRIOL 0.25 MCG CAP PO SCH (11:50)
[2022-01-12] MEDS: NOREPINEPHRINE BITARTRATE 16 MG in SODIUM CHL 0.9% 234 ML IV SCH (13:30)
[2022-01-12] MEDS ORDERED: EPOETIN ALFA-EPBX 10,000 UNIT/1ML VIAL SC ONE (21:00)
[2022-01-12] MEDS: clonazePAM 0.5 MG TAB PO PRN (21:14)
[2022-01-12] MEDS: INSULIN LANTUS (GLARGINE) 1 /0.01ml (100units/ml) SC SCH (22:41)
[2022-01-12] MEDS ORDERED: ACCU-CHEK COMFORT CURVE STRIP VI SCH (23:00)
[2022-01-12] MEDS ORDERED: DEXTROSE (50%) 50ML SYRG IV PRN (23:45)
[2022-01-13] VITALS (88 sets, daily range): BP systolic 75–132; BP diastolic 24–76
[2022-01-13 00:13] LABS: Albumin 2.2 g/dL (3.4-5.0); Anion Gap 10 (5-15); Blood Urea Nitrogen 36 mg/dL (7-18); Carbon Dioxide 31 mmol/L (21-32); Chloride 90 mmol/L (98-107); Potassium 4.1 mmol/L (3.5-5.1); Sodium 131 mmol/L (136-145)
[2022-01-13 00:16] LABS: Aspartate Aminotransferase 5 U/L (15-37); BUN/Creatinine Ratio 5.8; Bilirubin, Total 0.3 mg/dL (0.2-1.0); GFR African American 12 mL/min; GFR Non-African American 10 mL/min
[2022-01-13 00:21] LABS: Alkaline Phosphatase 234 U/L (45-117)
[2022-01-13 00:23] LABS: Alanine Aminotransferase < 6 U/L (16-61)
[2022-01-13] MEDS: InsuLIN REG 1unit/0.01ml Soln (100units/ml) SC SCH ×6 (00:34→20:49)
[2022-01-13 00:36] LABS: Glucose 527 mg/dL (74-106)
[2022-01-13] MEDS: CeftoloZANE-TAZOB 0.375 GM in D5W 5% 100 ML IV SCH ×3 (01:36→18:43)
[2022-01-13] MEDS: OXYCODONE W/ ACETAMINOPHEN 5/325MG TABLET PO PRN ×5 (01:48→22:02)
[2022-01-13] MEDS: ACCU-CHEK COMFORT CURVE STRIP VI SCH ×6 (04:00→20:00)
[2022-01-13 05:07] LABS: Basophils # (auto) 0.1 10 ^3/uL (0-0.2); Basophils % (auto) 1.1 % (0.0-2.0); Eosinophils # (auto) 0.1 10 ^3/uL (0-0.8); Eosinophils % (auto) 0.9 % (0.0-7.0); Hemoglobin 11.5 g/dL (13.5-17.5); Lymphocytes % (auto) 41.9 % (10.0-50.0); Mean Corpuscular Hemoglobin 30.1 pg (28.0-32.0); Mean Corpuscular Hgb Conc. 33.9 g/dL (32.0-36.0); Mean Corpuscular Volume 88.9 fL (80.0-100.0); Monocytes # (auto) 1.2 10 ^3/uL (0-1.3); Monocytes % (auto) 12.2 % (0.0-12.0); Neutrophils # (auto) 4.2 10 ^3/uL (1.6-8.6); Neutrophils % (auto) 43.9 % (37.0-80.0); Red Blood Cells 3.82 10^6/uL (4.5-5.90); Red Cell Distribution Width 14.4 % (11.8-14.3); White Blood Cell 9.6 10^3/uL (4.4-10.8)
[2022-01-13 05:14] LABS: BUN/Creatinine Ratio 6.2; Calcium 8.2 mg/dL (8.5-10.1); Potassium 3.9 mmol/L (3.5-5.1)
[2022-01-13] MEDS ORDERED: GABAPENTIN 100 MG CAP ONE (05:59)
[2022-01-13] MEDS: GABAPENTIN 300 MG CAP PO SCH ×3 (06:00→22:01)
[2022-01-13] MEDS: MIDODRINE HCL 10 MG TAB PO SCH ×3 (06:01→18:09)
[2022-01-13] MEDS: FERROUS SULFATE 325mg EC TAB PO SCH ×3 (06:01→22:01)
[2022-01-13] MEDS: NOREPINEPHRINE BITARTRATE 16 MG in SODIUM CHL 0.9% 234 ML IV SCH (06:37)
[2022-01-13] MEDS: Nepro With Carbsteady ButterPecan 8oz Carton PO SCH ×3 (08:00→17:38)
[2022-01-13] MEDS: LEVOTHYROXINE SODIUM 100 MCG TAB PO SCH (09:57)
[2022-01-13] MEDS: CALCITRIOL 0.25 MCG CAP PO SCH (09:57)
[2022-01-13] MEDS: APIXABAN 5 MG TAB PO SCH ×2 (09:57→22:01)
[2022-01-13] MEDS: NICOTINE 21MG/24 HR TOPICAL PATCH TD SCH (09:57)
[2022-01-13] MEDS: FLUoxetine HCL 20 MG CAP PO SCH (09:57)
[2022-01-13] MEDS ORDERED: OXYCODONE W/ ACETAMINOPHEN 5/325MG TABLET PO PRN (11:00)
[2022-01-13] MEDS: CHOLESTYRAMINE 4 GM POWDER PO SCH (15:18)
[2022-01-13] MEDS: clonazePAM 0.5 MG TAB PO PRN (22:01)
[2022-01-13] MEDS: INSULIN LANTUS (GLARGINE) 1 /0.01ml (100units/ml) SC SCH (22:08)
[2022-01-14] VITALS (93 sets, daily range): BP systolic 73–131; BP diastolic 37–79
[2022-01-14] MEDS: InsuLIN REG 1unit/0.01ml Soln (100units/ml) SC SCH ×6 (00:11→20:10)
[2022-01-14] MEDS: ACCU-CHEK COMFORT CURVE STRIP VI SCH ×6 (00:11→20:03)
[2022-01-14] MEDS: CeftoloZANE-TAZOB 0.375 GM in D5W 5% 100 ML IV SCH ×3 (02:00→18:20)
[2022-01-14] MEDS: OXYCODONE W/ ACETAMINOPHEN 5/325MG TABLET PO PRN ×4 (02:01→20:03)
[2022-01-14 04:40] LABS: Basophils # (auto) 0.1 10 ^3/uL (0-0.2); Eosinophils # (auto) 0.1 10 ^3/uL (0-0.8); Eosinophils % (auto) 1.2 % (0.0-7.0); Hematocrit 34.4 % (41.0-53.0); Hemoglobin 11.8 g/dL (13.5-17.5); Lymphocytes # (auto) 4.1 10 ^3/uL (0.4-5.4); Lymphocytes % (auto) 39.8 % (10.0-50.0); Mean Corpuscular Hemoglobin 30.1 pg (28.0-32.0); Mean Corpuscular Hgb Conc. 34.2 g/dL (32.0-36.0); Mean Corpuscular Volume 88.1 fL (80.0-100.0); Monocytes % (auto) 9.8 % (0.0-12.0); Neutrophils # (auto) 4.9 10 ^3/uL (1.6-8.6); Neutrophils % (auto) 48.2 % (37.0-80.0); Red Blood Cells 3.91 10^6/uL (4.5-5.90); Red Cell Distribution Width 14.4 % (11.8-14.3); White Blood Cell 10.3 10^3/uL (4.4-10.8)
[2022-01-14 04:56] LABS: BUN/Creatinine Ratio 6.2; Calcium 8.4 mg/dL (8.5-10.1); Potassium 4.2 mmol/L (3.5-5.1)
[2022-01-14] MEDS: GABAPENTIN 300 MG CAP PO SCH ×3 (06:37→21:37)
[2022-01-14] MEDS: FERROUS SULFATE 325mg EC TAB PO SCH ×3 (06:38→21:37)
[2022-01-14] MEDS: MIDODRINE HCL 10 MG TAB PO SCH ×3 (06:38→17:20)
[2022-01-14] MEDS: Nepro With Carbsteady ButterPecan 8oz Carton PO SCH ×3 (08:00→18:00)
[2022-01-14] MEDS: NICOTINE 21MG/24 HR TOPICAL PATCH TD SCH (09:57)
[2022-01-14] MEDS: FLUoxetine HCL 20 MG CAP PO SCH (09:57)
[2022-01-14] MEDS: LEVOTHYROXINE SODIUM 100 MCG TAB PO SCH (09:57)
[2022-01-14] MEDS: CALCITRIOL 0.25 MCG CAP PO SCH (09:57)
[2022-01-14] MEDS: APIXABAN 5 MG TAB PO SCH ×2 (09:58→21:37)
[2022-01-14] MEDS: MORPHINE SULFATE INJ 2 MG/ml SYRG IV PRN ×3 (12:34→21:37)
[2022-01-14] MEDS: NOREPINEPHRINE BITARTRATE 16 MG in SODIUM CHL 0.9% 234 ML IV SCH (13:30)
[2022-01-14] MEDS: CHOLESTYRAMINE 4 GM POWDER PO SCH (16:38)
[2022-01-14] MEDS: INSULIN LANTUS (GLARGINE) 1 /0.01ml (100units/ml) SC SCH (21:38)
[2022-01-14] MEDS: clonazePAM 0.5 MG TAB PO PRN (22:46)
[2022-01-15] VITALS (94 sets, daily range): BP systolic 70–156; BP diastolic 35–91
[2022-01-15] MEDS: InsuLIN REG 1unit/0.01ml Soln (100units/ml) SC SCH ×6 (00:13→19:43)
[2022-01-15] MEDS: ACCU-CHEK COMFORT CURVE STRIP VI SCH ×6 (00:13→19:42)
[2022-01-15] MEDS ORDERED: DEXTROSE (50%) 50ML SYRG IV PRN (01:00)
[2022-01-15] MEDS: CeftoloZANE-TAZOB 0.375 GM in D5W 5% 100 ML IV SCH ×3 (02:42→17:59)
[2022-01-15 03:42] LABS: Basophils # (auto) 0.1 10 ^3/uL (0-0.2); Basophils % (auto) 0.9 % (0.0-2.0); Eosinophils # (auto) 0.2 10 ^3/uL (0-0.8); Eosinophils % (auto) 1.5 % (0.0-7.0); Hemoglobin 11.5 g/dL (13.5-17.5); Lymphocytes # (auto) 4.3 10 ^3/uL (0.4-5.4); Lymphocytes % (auto) 35.4 % (10.0-50.0); Mean Corpuscular Hemoglobin 29.8 pg (28.0-32.0); Mean Corpuscular Hgb Conc. 33.7 g/dL (32.0-36.0); Mean Corpuscular Volume 88.4 fL (80.0-100.0); Monocytes # (auto) 0.8 10 ^3/uL (0-1.3); Monocytes % (auto) 6.5 % (0.0-12.0); Neutrophils # (auto) 6.7 10 ^3/uL (1.6-8.6); Neutrophils % (auto) 55.7 % (37.0-80.0); Nucleated Red Blood Cells % 0.1 %; Red Blood Cells 3.85 10^6/uL (4.5-5.90); Red Cell Distribution Width 14.2 % (11.8-14.3); White Blood Cell 12.1 10^3/uL (4.4-10.8)
[2022-01-15 04:08] LABS: Albumin 2.1 g/dL (3.4-5.0); BUN/Creatinine Ratio 6.3; Bilirubin, Total 0.4 mg/dL (0.2-1.0); Calcium 8.1 mg/dL (8.5-10.1); Potassium 4.2 mmol/L (3.5-5.1); Total Protein 6.2 g/dL (6.4-8.2)
[2022-01-15] MEDS: MORPHINE SULFATE INJ 2 MG/ml SYRG IV PRN ×3 (05:03→22:30)
[2022-01-15] MEDS: MIDODRINE HCL 10 MG TAB PO SCH ×3 (06:25→17:57)
[2022-01-15] MEDS: FERROUS SULFATE 325mg EC TAB PO SCH ×3 (06:25→21:38)
[2022-01-15] MEDS: GABAPENTIN 300 MG CAP PO SCH ×3 (06:25→21:38)
[2022-01-15] MEDS: OXYCODONE W/ ACETAMINOPHEN 5/325MG TABLET PO PRN ×3 (06:36→18:57)
[2022-01-15] MEDS ORDERED: SODIUM CHL 0.9% 1000 ML BAG XX ONE (07:00)
[2022-01-15] MEDS ORDERED: ALBUMIN 25% 100 ML IV PRN (07:45)
[2022-01-15] MEDS: Nepro With Carbsteady ButterPecan 8oz Carton PO SCH ×3 (08:00→17:59)
[2022-01-15] MEDS: APIXABAN 5 MG TAB PO SCH ×2 (10:02→21:38)
[2022-01-15] MEDS: CALCITRIOL 0.25 MCG CAP PO SCH (10:02)
[2022-01-15] MEDS: LEVOTHYROXINE SODIUM 100 MCG TAB PO SCH (10:02)
[2022-01-15] MEDS: FLUoxetine HCL 20 MG CAP PO SCH (10:02)
[2022-01-15] MEDS: NICOTINE 21MG/24 HR TOPICAL PATCH TD SCH (10:03)
[2022-01-15] MEDS: NOREPINEPHRINE BITARTRATE 16 MG in SODIUM CHL 0.9% 234 ML IV SCH (13:48)
[2022-01-15] MEDS: CHOLESTYRAMINE 4 GM POWDER PO SCH (16:42)
[2022-01-15] MEDS ORDERED: EPOETIN ALFA-EPBX 10,000 UNIT/1ML VIAL SC ONE (21:00)
[2022-01-15] MEDS: clonazePAM 0.5 MG TAB PO PRN (21:38)
[2022-01-15] MEDS: INSULIN LANTUS (GLARGINE) 1 /0.01ml (100units/ml) SC SCH (21:39)
[2022-01-16] VITALS (89 sets, daily range): BP systolic 75–125; BP diastolic 39–71
[2022-01-16] MEDS: ACCU-CHEK COMFORT CURVE STRIP VI SCH ×6 (00:13→20:19)
[2022-01-16] MEDS: InsuLIN REG 1unit/0.01ml Soln (100units/ml) SC SCH ×6 (00:14→20:22)
[2022-01-16] MEDS: CeftoloZANE-TAZOB 0.375 GM in D5W 5% 100 ML IV SCH ×3 (01:42→18:36)
[2022-01-16] MEDS: OXYCODONE W/ ACETAMINOPHEN 5/325MG TABLET PO PRN ×3 (02:16→20:30)
[2022-01-16 04:11] LABS: Basophils # (auto) 0.1 10 ^3/uL (0-0.2); Basophils % (auto) 0.6 % (0.0-2.0); Eosinophils # (auto) 0.3 10 ^3/uL (0-0.8); Eosinophils % (auto) 1.7 % (0.0-7.0); Hematocrit 34.7 % (41.0-53.0); Hemoglobin 11.7 g/dL (13.5-17.5); Lymphocytes # (auto) 3.5 10 ^3/uL (0.4-5.4); Lymphocytes % (auto) 19.8 % (10.0-50.0); Mean Corpuscular Hemoglobin 29.9 pg (28.0-32.0); Mean Corpuscular Hgb Conc. 33.8 g/dL (32.0-36.0); Mean Corpuscular Volume 88.7 fL (80.0-100.0); Monocytes # (auto) 0.6 10 ^3/uL (0-1.3); Monocytes % (auto) 3.3 % (0.0-12.0); Neutrophils # (auto) 13.2 10 ^3/uL (1.6-8.6); Neutrophils % (auto) 74.6 % (37.0-80.0); Nucleated Red Blood Cells % 0.2 %; Red Blood Cells 3.92 10^6/uL (4.5-5.90); Red Cell Distribution Width 14.1 % (11.8-14.3); White Blood Cell 17.7 10^3/uL (4.4-10.8)
[2022-01-16 04:23] LABS: Albumin 2.4 g/dL (3.4-5.0); Calcium 8.1 mg/dL (8.5-10.1); Potassium 4.1 mmol/L (3.5-5.1)
[2022-01-16 04:26] LABS: BUN/Creatinine Ratio 4.8
[2022-01-16 04:29] LABS: Bilirubin, Total 0.3 mg/dL (0.2-1.0); Total Protein 6.1 g/dL (6.4-8.2)
[2022-01-16] MEDS: MORPHINE SULFATE INJ 2 MG/ml SYRG IV PRN ×2 (06:00→18:58)
[2022-01-16] MEDS: MIDODRINE HCL 10 MG TAB PO SCH ×3 (06:48→18:35)
[2022-01-16] MEDS: GABAPENTIN 300 MG CAP PO SCH ×3 (06:48→22:15)
[2022-01-16] MEDS: FERROUS SULFATE 325mg EC TAB PO SCH ×3 (06:48→22:15)
[2022-01-16] MEDS: Nepro With Carbsteady ButterPecan 8oz Carton PO SCH ×3 (08:00→18:00)
[2022-01-16] MEDS ORDERED: D5W/SOD CHLO 0.9% 1,000 ML IV SCH (09:45)
[2022-01-16] MEDS ORDERED: LINEZOLID 600MG/300ML 300 ML IV SCH (10:00)
[2022-01-16] MEDS: LINEZOLID 600MG/300ML 300 ML IV SCH ×2 (10:00→22:15)
[2022-01-16] MEDS: NICOTINE 21MG/24 HR TOPICAL PATCH TD SCH (10:28)
[2022-01-16] MEDS: APIXABAN 5 MG TAB PO SCH ×2 (10:29→22:15)
[2022-01-16] MEDS: FLUoxetine HCL 20 MG CAP PO SCH (10:29)
[2022-01-16] MEDS: CALCITRIOL 0.25 MCG CAP PO SCH (10:29)
[2022-01-16] MEDS: LEVOTHYROXINE SODIUM 100 MCG TAB PO SCH (10:29)
[2022-01-16] MEDS: NOREPINEPHRINE BITARTRATE 16 MG in SODIUM CHL 0.9% 234 ML IV SCH (13:30)
[2022-01-16] MEDS: CHOLESTYRAMINE 4 GM POWDER PO SCH (16:10)
[2022-01-16] MEDS: TAMSULOSIN HYDROCHLORIDE 0.4 MG CAP PO SCH (18:35)
[2022-01-16] MEDS ORDERED: INSULIN LANTUS (GLARGINE) 1 /0.01ml (100units/ml) SC SCH (22:00)
[2022-01-16] MEDS: clonazePAM 0.5 MG TAB PO PRN (22:15)
[2022-01-17] VITALS (96 sets, daily range): BP systolic 64–137; BP diastolic 35–80
[2022-01-17] MEDS: InsuLIN REG 1unit/0.01ml Soln (100units/ml) SC SCH ×6 (00:05→20:00)
[2022-01-17] MEDS: ACCU-CHEK COMFORT CURVE STRIP VI SCH ×7 (00:05→23:59)
[2022-01-17] MEDS: CeftoloZANE-TAZOB 0.375 GM in D5W 5% 100 ML IV SCH (02:11)
[2022-01-17] MEDS: MORPHINE SULFATE INJ 2 MG/ml SYRG IV PRN ×3 (04:03→18:00)
[2022-01-17 04:46] LABS: Basophils # (auto) 0.1 10 ^3/uL (0-0.2); Basophils % (auto) 0.6 % (0.0-2.0); Eosinophils # (auto) 0.2 10 ^3/uL (0-0.8); Eosinophils % (auto) 1.1 % (0.0-7.0); Hematocrit 30.8 % (41.0-53.0); Hemoglobin 10.4 g/dL (13.5-17.5); Lymphocytes # (auto) 4.3 10 ^3/uL (0.4-5.4); Lymphocytes % (auto) 29.8 % (10.0-50.0); Mean Corpuscular Hemoglobin 29.6 pg (28.0-32.0); Mean Corpuscular Hgb Conc. 33.8 g/dL (32.0-36.0); Mean Corpuscular Volume 87.7 fL (80.0-100.0); Monocytes # (auto) 0.4 10 ^3/uL (0-1.3); Neutrophils # (auto) 9.4 10 ^3/uL (1.6-8.6); Neutrophils % (auto) 65.5 % (37.0-80.0); Red Blood Cells 3.51 10^6/uL (4.5-5.90); Red Cell Distribution Width 14.3 % (11.8-14.3); White Blood Cell 14.4 10^3/uL (4.4-10.8)
[2022-01-17 05:04] LABS: Albumin 2.3 g/dL (3.4-5.0); BUN/Creatinine Ratio 5.2; Bilirubin, Total 0.2 mg/dL (0.2-1.0); Calcium 7.8 mg/dL (8.5-10.1); Total Protein 6.4 g/dL (6.4-8.2)
[2022-01-17] MEDS: GABAPENTIN 300 MG CAP PO SCH ×3 (06:15→21:28)
[2022-01-17] MEDS: MIDODRINE HCL 10 MG TAB PO SCH ×3 (06:15→17:44)
[2022-01-17] MEDS: FERROUS SULFATE 325mg EC TAB PO SCH ×3 (06:15→21:28)
[2022-01-17] MEDS: Nepro With Carbsteady ButterPecan 8oz Carton PO SCH ×3 (08:00→17:44)
[2022-01-17] MEDS: NICOTINE 21MG/24 HR TOPICAL PATCH TD SCH (10:12)
[2022-01-17] MEDS: ERGOCALCIFEROL 50,000 UNIT(1.25MG) CAP PO SCH (10:12)
[2022-01-17] MEDS: CALCITRIOL 0.25 MCG CAP PO SCH (10:12)
[2022-01-17] MEDS: APIXABAN 5 MG TAB PO SCH ×2 (10:13→21:28)
[2022-01-17] MEDS: FLUoxetine HCL 20 MG CAP PO SCH (10:13)
[2022-01-17] MEDS: LINEZOLID 600MG/300ML 300 ML IV SCH (10:13)
[2022-01-17] MEDS: LEVOTHYROXINE SODIUM 100 MCG TAB PO SCH (10:13)
[2022-01-17] MEDS: OXYCODONE W/ ACETAMINOPHEN 5/325MG TABLET PO PRN ×2 (11:28→20:38)
[2022-01-17] MEDS: MEROPENEM 500MG IVPB 50 ML IV SCH (12:48)
[2022-01-17] MEDS: SODIUM CHLORIDE 0.9% 1,000 ML IV SCH (15:00)
[2022-01-17] MEDS ORDERED: SODIUM CHL 0.9% 1000 ML BAG XX ONE (17:00)
[2022-01-17] MEDS ORDERED: HEPARIN 1,000 UNITS/ml 1ML VIAL IV ONE (17:00)
[2022-01-17] MEDS: TAMSULOSIN HYDROCHLORIDE 0.4 MG CAP PO SCH (17:42)
[2022-01-17] MEDS: NOREPINEPHRINE BITARTRATE 16 MG in SODIUM CHL 0.9% 234 ML IV SCH (18:26)
[2022-01-17] MEDS: CHOLESTYRAMINE 4 GM POWDER PO SCH (20:04)
[2022-01-17] MEDS ORDERED: EPOETIN ALFA-EPBX 4,000 UNIT/ML VIAL SC ONE (21:00)
[2022-01-17] MEDS: clonazePAM 0.5 MG TAB PO PRN (22:44)
[2022-01-18] VITALS (88 sets, daily range): BP systolic 58–139; BP diastolic 30–80
[2022-01-18] MEDS: ACCU-CHEK COMFORT CURVE STRIP VI SCH ×5 (03:56→20:17)
[2022-01-18] MEDS: InsuLIN REG 1unit/0.01ml Soln (100units/ml) SC SCH ×6 (03:56→20:18)
[2022-01-18] MEDS: OXYCODONE W/ ACETAMINOPHEN 5/325MG TABLET PO PRN ×3 (03:57→22:29)
[2022-01-18 04:36] LABS: Basophils # (auto) 0.1 10 ^3/uL (0-0.2); Basophils % (auto) 0.8 % (0.0-2.0); Eosinophils # (auto) 0.1 10 ^3/uL (0-0.8); Eosinophils % (auto) 0.6 % (0.0-7.0); Hemoglobin 9.9 g/dL (13.5-17.5); Lymphocytes # (auto) 2.3 10 ^3/uL (0.4-5.4); Lymphocytes % (auto) 14.7 % (10.0-50.0); Mean Corpuscular Hemoglobin 29.8 pg (28.0-32.0); Mean Corpuscular Hgb Conc. 34.2 g/dL (32.0-36.0); Mean Corpuscular Volume 87.3 fL (80.0-100.0); Monocytes # (auto) 0.4 10 ^3/uL (0-1.3); Monocytes % (auto) 2.9 % (0.0-12.0); Neutrophils # (auto) 12.4 10 ^3/uL (1.6-8.6); Red Blood Cells 3.32 10^6/uL (4.5-5.90); Red Cell Distribution Width 14.4 % (11.8-14.3); White Blood Cell 15.3 10^3/uL (4.4-10.8)
[2022-01-18 04:39] LABS: Calcium 7.8 mg/dL (8.5-10.1); Potassium 4.3 mmol/L (3.5-5.1)
[2022-01-18] MEDS: GABAPENTIN 300 MG CAP PO SCH ×3 (06:28→22:28)
[2022-01-18] MEDS: FERROUS SULFATE 325mg EC TAB PO SCH ×3 (06:28→22:28)
[2022-01-18] MEDS: MIDODRINE HCL 10 MG TAB PO SCH ×3 (06:29→18:20)
[2022-01-18] MEDS: Nepro With Carbsteady ButterPecan 8oz Carton PO SCH ×3 (08:00→18:00)
[2022-01-18] MEDS: NICOTINE 21MG/24 HR TOPICAL PATCH TD SCH (09:51)
[2022-01-18] MEDS: SODIUM CHLORIDE 0.9% 1,000 ML IV SCH (09:51)
[2022-01-18] MEDS: LEVOTHYROXINE SODIUM 100 MCG TAB PO SCH (09:52)
[2022-01-18] MEDS: APIXABAN 5 MG TAB PO SCH ×2 (09:52→22:28)
[2022-01-18] MEDS: FLUoxetine HCL 20 MG CAP PO SCH (09:52)
[2022-01-18] MEDS: MEROPENEM 500MG IVPB 50 ML IV SCH ×2 (09:52→22:28)
[2022-01-18] MEDS: CALCITRIOL 0.25 MCG CAP PO SCH (10:02)
[2022-01-18] MEDS: MORPHINE SULFATE INJ 2 MG/ml SYRG IV PRN ×3 (10:10→16:51)
[2022-01-18] MEDS: ALBUTEROL SULF 2.5 MG/0.5ML(0.5%) NEB SOLN NEB PRN ×2 (11:53→22:58)
[2022-01-18] MEDS: IPRATROPIUM BROM 0.5 MG/2.5ML INH SOL NEB PRN ×2 (11:54→22:58)
[2022-01-18] MEDS: NOREPINEPHRINE BITARTRATE 16 MG in SODIUM CHL 0.9% 234 ML IV SCH (14:06)
[2022-01-18] MEDS: LOPERAMIDE HCL 2 MG CAP/TAB PO SCH ×2 (14:10→22:28)
[2022-01-18] MEDS: CHOLESTYRAMINE 4 GM POWDER PO SCH (14:18)
[2022-01-18] MEDS: TAMSULOSIN HYDROCHLORIDE 0.4 MG CAP PO SCH (18:20)
[2022-01-18] MEDS: clonazePAM 0.5 MG TAB PO PRN (22:29)
[2022-01-19] VITALS (83 sets, daily range): BP systolic 69–153; BP diastolic 30–92
[2022-01-19] MEDS: OXYCODONE W/ ACETAMINOPHEN 5/325MG TABLET PO PRN ×3 (02:15→20:54)
[2022-01-19 04:51] LABS: Basophils # (auto) 0.1 10 ^3/uL (0-0.2); Basophils % (auto) 0.7 % (0.0-2.0); Eosinophils # (auto) 0.1 10 ^3/uL (0-0.8); Eosinophils % (auto) 0.9 % (0.0-7.0); Hematocrit 31.5 % (41.0-53.0); Hemoglobin 10.4 g/dL (13.5-17.5); Lymphocytes # (auto) 3.6 10 ^3/uL (0.4-5.4); Mean Corpuscular Hemoglobin 29.6 pg (28.0-32.0); Mean Corpuscular Hgb Conc. 33.1 g/dL (32.0-36.0); Mean Corpuscular Volume 89.6 fL (80.0-100.0); Monocytes # (auto) 0.5 10 ^3/uL (0-1.3); Monocytes % (auto) 4.1 % (0.0-12.0); Neutrophils # (auto) 7.4 10 ^3/uL (1.6-8.6); Neutrophils % (auto) 63.3 % (37.0-80.0); Red Blood Cells 3.51 10^6/uL (4.5-5.90); Red Cell Distribution Width 14.5 % (11.8-14.3); White Blood Cell 11.6 10^3/uL (4.4-10.8)
[2022-01-19 05:27] LABS: BUN/Creatinine Ratio 5.2; Calcium 7.8 mg/dL (8.5-10.1); Potassium 4.7 mmol/L (3.5-5.1)
[2022-01-19] MEDS: ACCU-CHEK COMFORT CURVE STRIP VI SCH ×6 (05:30→20:45)
[2022-01-19] MEDS: InsuLIN REG 1unit/0.01ml Soln (100units/ml) SC SCH ×6 (05:30→20:45)
[2022-01-19] MEDS: MIDODRINE HCL 10 MG TAB PO SCH ×3 (06:00→18:33)
[2022-01-19] MEDS: LOPERAMIDE HCL 2 MG CAP/TAB PO SCH ×3 (06:00→21:29)
[2022-01-19] MEDS: FERROUS SULFATE 325mg EC TAB PO SCH ×3 (06:00→21:28)
[2022-01-19] MEDS ORDERED: SODIUM CHL 0.9% 1000 ML BAG XX ONE (07:00)
[2022-01-19] MEDS: Nepro With Carbsteady ButterPecan 8oz Carton PO SCH (08:00)
[2022-01-19] MEDS: SODIUM CHLORIDE 0.9% 1,000 ML IV SCH (08:55)
[2022-01-19] MEDS: MORPHINE SULFATE 4 MG/ML SYR/VIAL IV PRN ×3 (10:13→22:22)
[2022-01-19] MEDS: ALBUTEROL SULF 2.5 MG/0.5ML(0.5%) NEB SOLN NEB PRN ×2 (11:32→22:06)
[2022-01-19] MEDS: IPRATROPIUM BROM 0.5 MG/2.5ML INH SOL NEB PRN ×2 (11:32→22:07)
[2022-01-19] MEDS: MEROPENEM 500MG IVPB 50 ML IV SCH ×2 (12:46→21:29)
[2022-01-19] MEDS: NICOTINE 21MG/24 HR TOPICAL PATCH TD SCH (12:47)
[2022-01-19] MEDS: INSULIN LANTUS (GLARGINE) 1 /0.01ml (100units/ml) SC SCH (12:49)
[2022-01-19] MEDS: LEVOTHYROXINE SODIUM 100 MCG TAB PO SCH (12:51)
[2022-01-19] MEDS: GABAPENTIN 300 MG CAP PO SCH ×2 (12:51→21:27)
[2022-01-19] MEDS: ASCORBIC ACID 500 MG TAB PO SCH ×2 (12:51→21:27)
[2022-01-19] MEDS: APIXABAN 5 MG TAB PO SCH ×2 (12:52→21:28)
[2022-01-19] MEDS: FLUoxetine HCL 20 MG CAP PO SCH (12:52)
[2022-01-19] MEDS: CALCITRIOL 0.25 MCG CAP PO SCH (12:52)
[2022-01-19] MEDS: NOREPINEPHRINE BITARTRATE 16 MG in SODIUM CHL 0.9% 234 ML IV SCH (13:30)
[2022-01-19] MEDS ORDERED: LOPERAMIDE HCL 2 MG CAP/TAB PO SCH (14:00)
[2022-01-19] MEDS: CHOLESTYRAMINE 4 GM POWDER PO SCH (15:15)
[2022-01-19] MEDS: TAMSULOSIN HYDROCHLORIDE 0.4 MG CAP PO SCH (18:32)
[2022-01-19] MEDS ORDERED: EPOETIN ALFA-EPBX 10,000 UNIT/1ML VIAL SC ONE (21:00)
[2022-01-19] MEDS: clonazePAM 0.5 MG TAB PO PRN (21:27)
[2022-01-20] VITALS (84 sets, daily range): BP systolic 60–145; BP diastolic 23–76
[2022-01-20] MEDS: ACCU-CHEK COMFORT CURVE STRIP VI SCH ×6 (00:20→19:51)
[2022-01-20] MEDS: InsuLIN REG 1unit/0.01ml Soln (100units/ml) SC SCH ×6 (00:27→19:52)
[2022-01-20] MEDS: OXYCODONE W/ ACETAMINOPHEN 5/325MG TABLET PO PRN ×4 (02:56→22:01)
[2022-01-20] MEDS: SODIUM CHLORIDE 0.9% 1,000 ML IV SCH ×2 (03:00→23:00)
[2022-01-20 04:22] LABS: BUN/Creatinine Ratio 4.4; Calcium 7.7 mg/dL (8.5-10.1); Potassium 4.3 mmol/L (3.5-5.1)
[2022-01-20 05:01] LABS: Basophils # (auto) 0.1 10 ^3/uL (0-0.2); Basophils % (auto) 0.7 % (0.0-2.0); Eosinophils # (auto) 0.1 10 ^3/uL (0-0.8); Eosinophils % (auto) 0.8 % (0.0-7.0); Hematocrit 26.1 % (41.0-53.0); Hemoglobin 8.8 g/dL (13.5-17.5); Lymphocytes # (auto) 2.4 10 ^3/uL (0.4-5.4); Lymphocytes % (auto) 31.2 % (10.0-50.0); Mean Corpuscular Hemoglobin 30.2 pg (28.0-32.0); Mean Corpuscular Hgb Conc. 33.7 g/dL (32.0-36.0); Mean Corpuscular Volume 89.6 fL (80.0-100.0); Monocytes # (auto) 0.4 10 ^3/uL (0-1.3); Monocytes % (auto) 4.8 % (0.0-12.0); Neutrophils # (auto) 4.9 10 ^3/uL (1.6-8.6); Neutrophils % (auto) 62.5 % (37.0-80.0); Nucleated Red Blood Cells % 0.1 %; Red Blood Cells 2.91 10^6/uL (4.5-5.90); Red Cell Distribution Width 14.6 % (11.8-14.3); White Blood Cell 7.8 10^3/uL (4.4-10.8)
[2022-01-20] MEDS: MIDODRINE HCL 10 MG TAB PO SCH ×3 (06:13→18:44)
[2022-01-20] MEDS: FERROUS SULFATE 325mg EC TAB PO SCH ×3 (06:13→21:53)
[2022-01-20] MEDS: LOPERAMIDE HCL 2 MG CAP/TAB PO SCH ×4 (06:13→21:54)
[2022-01-20] MEDS: MORPHINE SULFATE 4 MG/ML SYR/VIAL IV PRN ×4 (06:20→20:21)
[2022-01-20] MEDS: GABAPENTIN 300 MG CAP PO SCH ×2 (09:33→21:53)
[2022-01-20] MEDS: APIXABAN 5 MG TAB PO SCH ×2 (09:33→21:54)
[2022-01-20] MEDS: FLUoxetine HCL 20 MG CAP PO SCH (09:33)
[2022-01-20] MEDS: ASCORBIC ACID 500 MG TAB PO SCH ×2 (09:33→19:46)
[2022-01-20] MEDS: LEVOTHYROXINE SODIUM 100 MCG TAB PO SCH (09:33)
[2022-01-20] MEDS: NICOTINE 21MG/24 HR TOPICAL PATCH TD SCH (09:34)
[2022-01-20] MEDS: CALCITRIOL 0.25 MCG CAP PO SCH (09:34)
[2022-01-20] MEDS: MEROPENEM 500MG IVPB 50 ML IV SCH ×2 (09:35→21:53)
[2022-01-20] MEDS: INSULIN LANTUS (GLARGINE) 1 /0.01ml (100units/ml) SC SCH (09:48)
[2022-01-20] MEDS: NOREPINEPHRINE BITARTRATE 16 MG in SODIUM CHL 0.9% 234 ML IV SCH (13:30)
[2022-01-20] MEDS ORDERED: SODIUM CHLORIDE 0.9% 3,000 ML IV ONE (15:15)
[2022-01-20] MEDS: CHOLESTYRAMINE 4 GM POWDER PO SCH (15:35)
[2022-01-20] MEDS ORDERED: SODIUM CHLORIDE 0.9% 2,000 ML IV ONE (18:00)
[2022-01-20] MEDS: TAMSULOSIN HYDROCHLORIDE 0.4 MG CAP PO SCH (18:44)
[2022-01-20] MEDS: SODIUM CHLORIDE 1 GM TAB PO SCH (21:54)
[2022-01-20] MEDS: clonazePAM 0.5 MG TAB PO PRN (22:01)
[2022-01-21] VITALS (91 sets, daily range): BP systolic 66–175; BP diastolic 32–74
[2022-01-21] MEDS: ACCU-CHEK COMFORT CURVE STRIP VI SCH ×6 (00:30→20:25)
[2022-01-21] MEDS: InsuLIN REG 1unit/0.01ml Soln (100units/ml) SC SCH ×6 (00:31→20:29)
[2022-01-21] MEDS: ALBUTEROL SULF 2.5 MG/0.5ML(0.5%) NEB SOLN NEB PRN ×3 (00:40→21:54)
[2022-01-21] MEDS: IPRATROPIUM BROM 0.5 MG/2.5ML INH SOL NEB PRN ×3 (00:40→21:54)
[2022-01-21] MEDS: MORPHINE SULFATE 4 MG/ML SYR/VIAL IV PRN ×4 (02:24→21:56)
[2022-01-21] MEDS: FERROUS SULFATE 325mg EC TAB PO SCH ×3 (06:41→21:56)
[2022-01-21] MEDS: SODIUM CHLORIDE 1 GM TAB PO SCH ×3 (06:41→22:08)
[2022-01-21] MEDS: MIDODRINE HCL 10 MG TAB PO SCH ×3 (06:42→18:01)
[2022-01-21] MEDS: LOPERAMIDE HCL 2 MG CAP/TAB PO SCH ×4 (06:42→22:08)
[2022-01-21 08:26] LABS: Basophils # (auto) 0.1 10 ^3/uL (0-0.2); Basophils % (auto) 1.2 % (0.0-2.0); Eosinophils # (auto) 0.1 10 ^3/uL (0-0.8); Eosinophils % (auto) 0.8 % (0.0-7.0); Hematocrit 25.9 % (41.0-53.0); Hemoglobin 8.7 g/dL (13.5-17.5); Lymphocytes # (auto) 2.2 10 ^3/uL (0.4-5.4); Lymphocytes % (auto) 30.6 % (10.0-50.0); Mean Corpuscular Hemoglobin 30.2 pg (28.0-32.0); Mean Corpuscular Hgb Conc. 33.8 g/dL (32.0-36.0); Mean Corpuscular Volume 89.5 fL (80.0-100.0); Monocytes # (auto) 0.3 10 ^3/uL (0-1.3); Monocytes % (auto) 3.8 % (0.0-12.0); Neutrophils # (auto) 4.6 10 ^3/uL (1.6-8.6); Neutrophils % (auto) 63.6 % (37.0-80.0); Red Blood Cells 2.89 10^6/uL (4.5-5.90); Red Cell Distribution Width 14.7 % (11.8-14.3); White Blood Cell 7.2 10^3/uL (4.4-10.8)
[2022-01-21 08:44] LABS: BUN/Creatinine Ratio 5.4; Calcium 7.5 mg/dL (8.5-10.1); Potassium 5.5 mmol/L (3.5-5.1)
[2022-01-21] MEDS: MEROPENEM 500MG IVPB 50 ML IV SCH ×2 (09:45→21:56)
[2022-01-21] MEDS: NICOTINE 21MG/24 HR TOPICAL PATCH TD SCH (09:47)
[2022-01-21] MEDS: FLUoxetine HCL 20 MG CAP PO SCH (09:47)
[2022-01-21] MEDS: CALCITRIOL 0.25 MCG CAP PO SCH (09:47)
[2022-01-21] MEDS: ASCORBIC ACID 500 MG TAB PO SCH ×2 (09:47→21:56)
[2022-01-21] MEDS: APIXABAN 5 MG TAB PO SCH ×2 (09:48→21:55)
[2022-01-21] MEDS: LEVOTHYROXINE SODIUM 100 MCG TAB PO SCH (09:48)
[2022-01-21] MEDS: GABAPENTIN 300 MG CAP PO SCH ×2 (09:48→21:56)
[2022-01-21] MEDS ORDERED: PANTOPRAZOLE 40 MG TAB PO SCH (10:00)
[2022-01-21] MEDS: INSULIN LANTUS (GLARGINE) 1 /0.01ml (100units/ml) SC SCH (10:09)
[2022-01-21] MEDS ORDERED: SODIUM ZIRCONIUM CYCL 10 GM PAK PO ONE (11:45)
[2022-01-21] MEDS: NOREPINEPHRINE BITARTRATE 16 MG in SODIUM CHL 0.9% 234 ML IV SCH ×2 (13:30→18:13)
[2022-01-21] MEDS ORDERED: FAMOTIDINE 20 MG TAB PO ONE (14:30)
[2022-01-21] MEDS: CHOLESTYRAMINE 4 GM POWDER PO SCH (17:11)
[2022-01-21] MEDS: TAMSULOSIN HYDROCHLORIDE 0.4 MG CAP PO SCH (18:01)
[2022-01-21] MEDS: OXYCODONE W/ ACETAMINOPHEN 5/325MG TABLET PO PRN (19:03)
[2022-01-21] MEDS: SODIUM CHLORIDE 0.9% 1,000 ML IV SCH (20:25)
[2022-01-21] MEDS: clonazePAM 0.5 MG TAB PO PRN (22:07)
[2022-01-22] VITALS (81 sets, daily range): BP systolic 71–136; BP diastolic 36–66
[2022-01-22] MEDS: OXYCODONE W/ ACETAMINOPHEN 5/325MG TABLET PO PRN ×2 (03:31→13:05)
[2022-01-22] MEDS: ACCU-CHEK COMFORT CURVE STRIP VI SCH ×7 (04:00→23:55)
[2022-01-22] MEDS: InsuLIN REG 1unit/0.01ml Soln (100units/ml) SC SCH ×7 (04:00→23:55)
[2022-01-22 04:57] LABS: Basophils # (auto) 0.1 10 ^3/uL (0-0.2); Eosinophils # (auto) 0 10 ^3/uL (0-0.8); Mean Corpuscular Hgb Conc. 34.4 g/dL (32.0-36.0); Monocytes # (auto) 0.3 10 ^3/uL (0-1.3); Red Blood Cells 2.59 10^6/uL (4.5-5.90); White Blood Cell 7.5 10^3/uL (4.4-10.8)
[2022-01-22 04:59] LABS: Basophils % (auto) 0.9 % (0.0-2.0); Eosinophils % (auto) 0.5 % (0.0-7.0); Hematocrit 23.2 % (41.0-53.0); Lymphocytes # (auto) 1.8 10 ^3/uL (0.4-5.4); Lymphocytes % (auto) 24.4 % (10.0-50.0); Mean Corpuscular Hemoglobin 30.8 pg (28.0-32.0); Mean Corpuscular Volume 89.6 fL (80.0-100.0); Monocytes % (auto) 4.1 % (0.0-12.0); Neutrophils # (auto) 5.3 10 ^3/uL (1.6-8.6); Neutrophils % (auto) 70.1 % (37.0-80.0); Red Cell Distribution Width 14.6 % (11.8-14.3)
[2022-01-22 05:02] LABS: Potassium 4.8 mmol/L (3.5-5.1)
[2022-01-22 05:06] LABS: BUN/Creatinine Ratio 5.5; Calcium 7.7 mg/dL (8.5-10.1)
[2022-01-22] MEDS: MIDODRINE HCL 10 MG TAB PO SCH ×3 (06:00→18:00)
[2022-01-22] MEDS: SODIUM CHLORIDE 1 GM TAB PO SCH ×3 (06:00→22:00)
[2022-01-22] MEDS: FERROUS SULFATE 325mg EC TAB PO SCH ×3 (06:00→22:00)
[2022-01-22] MEDS: LOPERAMIDE HCL 2 MG CAP/TAB PO SCH (06:00)
[2022-01-22] MEDS ORDERED: SODIUM CHL 0.9% 1000 ML BAG XX ONE (07:00)
[2022-01-22] MEDS: MORPHINE SULFATE 4 MG/ML SYR/VIAL IV PRN ×3 (08:49→20:47)
[2022-01-22] MEDS ORDERED: LIDOCAINE VISCOUS 2% 15ML UD MT ONE (09:00)
[2022-01-22] MEDS ORDERED: NOREPINEPHRINE 8 MG/250ML KIT 250 ML IV PRN (09:45)
[2022-01-22] MEDS: FLUoxetine HCL 20 MG CAP PO SCH (10:00)
[2022-01-22] MEDS: GABAPENTIN 300 MG CAP PO SCH ×2 (10:00→22:00)
[2022-01-22] MEDS: APIXABAN 5 MG TAB PO SCH ×2 (10:00→22:00)
[2022-01-22] MEDS: ASCORBIC ACID 500 MG TAB PO SCH ×2 (10:00→22:00)
[2022-01-22] MEDS: CALCITRIOL 0.25 MCG CAP PO SCH (10:00)
[2022-01-22] MEDS: LEVOTHYROXINE SODIUM 100 MCG TAB PO SCH (10:00)
[2022-01-22] MEDS: INSULIN LANTUS (GLARGINE) 1 /0.01ml (100units/ml) SC SCH (12:00)
[2022-01-22] MEDS ORDERED: PANTOPRAZOLE 40 MG/10 ML VIAL INJ IV ONE ×2 (13:15→13:30)
[2022-01-22] MEDS: CHOLESTYRAMINE 4 GM POWDER PO SCH (15:00)
[2022-01-22] MEDS: SODIUM CHLORIDE 0.9% 1,000 ML IV SCH (15:00)
[2022-01-22] MEDS ORDERED: HYDROmorphone HCL 2 MG/ML VL/or syr IV ONE (16:45)
[2022-01-22] MEDS: MEROPENEM 500MG IVPB 50 ML IV SCH (17:06)
[2022-01-22] MEDS: TAMSULOSIN HYDROCHLORIDE 0.4 MG CAP PO SCH (17:44)
[2022-01-22] MEDS: NICOTINE 21MG/24 HR TOPICAL PATCH TD SCH (18:30)
[2022-01-22] MEDS: ALBUTEROL SULF 2.5 MG/0.5ML(0.5%) NEB SOLN NEB PRN (18:42)
[2022-01-22] MEDS: IPRATROPIUM BROM 0.5 MG/2.5ML INH SOL NEB PRN (18:42)
[2022-01-22] MEDS ORDERED: EPOETIN ALFA-EPBX 10,000 UNIT/1ML VIAL SC ONE (21:00)
[2022-01-23] VITALS (88 sets, daily range): BP systolic 80–123; BP diastolic 38–96
[2022-01-23] MEDS: MORPHINE SULFATE 4 MG/ML SYR/VIAL IV PRN ×3 (03:05→18:38)
[2022-01-23] MEDS: InsuLIN REG 1unit/0.01ml Soln (100units/ml) SC SCH ×5 (04:00→21:51)
[2022-01-23] MEDS: ACCU-CHEK COMFORT CURVE STRIP VI SCH ×5 (04:04→21:51)
[2022-01-23] MEDS: MEROPENEM 500MG IVPB 50 ML IV SCH ×2 (04:41→17:00)
[2022-01-23] MEDS: FERROUS SULFATE 325mg EC TAB PO SCH ×3 (06:00→22:00)
[2022-01-23] MEDS: SODIUM CHLORIDE 1 GM TAB PO SCH ×3 (06:00→22:00)
[2022-01-23] MEDS: MIDODRINE HCL 10 MG TAB PO SCH ×3 (06:00→18:00)
[2022-01-23] MEDS ORDERED: KETOROLAC TROMETH 30 MG/ML 1ML VIAL IV ONE (07:00)
[2022-01-23] MEDS: SODIUM CHLORIDE 0.9% 1,000 ML IV SCH ×2 (09:15)
[2022-01-23] MEDS: PANTOPRAZOLE 40 MG/10 ML VIAL INJ IV SCH (09:16)
[2022-01-23] MEDS: HYDROmorphone HCL 2 MG/ML VL/or syr IV PRN ×5 (09:17→23:19)
[2022-01-23] MEDS ORDERED: GASTROGRAFIN 120 ML SOL ONE (09:21)
[2022-01-23] MEDS: FLUoxetine HCL 20 MG CAP PO SCH (10:00)
[2022-01-23] MEDS: CALCITRIOL 0.25 MCG CAP PO SCH (10:00)
[2022-01-23] MEDS: ASCORBIC ACID 500 MG TAB PO SCH ×2 (10:00→22:00)
[2022-01-23] MEDS: GABAPENTIN 300 MG CAP PO SCH ×2 (10:00→22:00)
[2022-01-23] MEDS: INSULIN LANTUS (GLARGINE) 1 /0.01ml (100units/ml) SC SCH (10:00)
[2022-01-23] MEDS: APIXABAN 5 MG TAB PO SCH ×2 (10:00→22:00)
[2022-01-23] MEDS: LEVOTHYROXINE SODIUM 100 MCG TAB PO SCH (10:00)
[2022-01-23] MEDS: NICOTINE 21MG/24 HR TOPICAL PATCH TD SCH (10:59)
[2022-01-23] MEDS ORDERED: FAMOTIDINE 20 MG TAB PO SCH (14:30)
[2022-01-23] MEDS: TAMSULOSIN HYDROCHLORIDE 0.4 MG CAP PO SCH (18:00)
[2022-01-23] MEDS: ALBUTEROL SULF 2.5 MG/0.5ML(0.5%) NEB SOLN NEB PRN (18:08)
[2022-01-23] MEDS: IPRATROPIUM BROM 0.5 MG/2.5ML INH SOL NEB PRN (18:09)
[2022-01-24] VITALS (45 sets, daily range): BP systolic 77–118; BP diastolic 33–67
[2022-01-24] MEDS: MORPHINE SULFATE 4 MG/ML SYR/VIAL IV PRN ×3 (00:30→08:12)
[2022-01-24] MEDS: HYDROmorphone HCL 2 MG/ML VL/or syr IV PRN ×3 (01:14→06:00)
[2022-01-24] MEDS: SODIUM CHLORIDE 0.9% 1,000 ML IV SCH ×2 (01:14→11:40)
[2022-01-24] MEDS: ACCU-CHEK COMFORT CURVE STRIP VI SCH ×4 (01:26→12:05)
[2022-01-24] MEDS: InsuLIN REG 1unit/0.01ml Soln (100units/ml) SC SCH ×3 (01:28→08:00)
[2022-01-24 04:06] LABS: Basophils # (auto) 0.1 10 ^3/uL (0-0.2); Basophils % (auto) 1.1 % (0.0-2.0); Eosinophils # (auto) 0.1 10 ^3/uL (0-0.8); Eosinophils % (auto) 1.4 % (0.0-7.0); Hematocrit 24.9 % (41.0-53.0); Hemoglobin 8.7 g/dL (13.5-17.5); Lymphocytes # (auto) 1.7 10 ^3/uL (0.4-5.4); Lymphocytes % (auto) 28.6 % (10.0-50.0); Mean Corpuscular Hemoglobin 31.5 pg (28.0-32.0); Mean Corpuscular Hgb Conc. 35.1 g/dL (32.0-36.0); Mean Corpuscular Volume 89.8 fL (80.0-100.0); Monocytes # (auto) 0.4 10 ^3/uL (0-1.3); Monocytes % (auto) 7.6 % (0.0-12.0); Neutrophils # (auto) 3.6 10 ^3/uL (1.6-8.6); Neutrophils % (auto) 61.3 % (37.0-80.0); Red Blood Cells 2.77 10^6/uL (4.5-5.90); Red Cell Distribution Width 15.2 % (11.8-14.3); White Blood Cell 5.9 10^3/uL (4.4-10.8)
[2022-01-24 04:19] LABS: BUN/Creatinine Ratio 4.4; Calcium 8.3 mg/dL (8.5-10.1); Potassium 4.7 mmol/L (3.5-5.1)
[2022-01-24] MEDS: SODIUM CHLORIDE 1 GM TAB PO SCH ×2 (06:00→12:06)
[2022-01-24] MEDS: FERROUS SULFATE 325mg EC TAB PO SCH ×2 (06:00→12:04)
[2022-01-24] MEDS: MIDODRINE HCL 10 MG TAB PO SCH ×2 (06:00→12:03)
[2022-01-24] MEDS: MEROPENEM 500MG IVPB 50 ML IV SCH (06:01)
[2022-01-24] MEDS ORDERED: SODIUM CHL 0.9% 1000 ML BAG XX ONE (07:00)
[2022-01-24] MEDS: APIXABAN 5 MG TAB PO SCH (09:13)
[2022-01-24] MEDS: GABAPENTIN 300 MG CAP PO SCH (09:14)
[2022-01-24] MEDS: ASCORBIC ACID 500 MG TAB PO SCH (09:14)
[2022-01-24] MEDS: LEVOTHYROXINE SODIUM 100 MCG TAB PO SCH (09:14)
[2022-01-24] MEDS: FLUoxetine HCL 20 MG CAP PO SCH (09:14)
[2022-01-24] MEDS: CALCITRIOL 0.25 MCG CAP PO SCH (09:14)
[2022-01-24] MEDS: ERGOCALCIFEROL 50,000 UNIT(1.25MG) CAP PO SCH (09:15)
[2022-01-24] MEDS: INSULIN LANTUS (GLARGINE) 1 /0.01ml (100units/ml) SC SCH (09:15)
[2022-01-24] MEDS ORDERED: HYDROmorphone HCL 2 MG/ML VL/or syr IV PRN (12:00)
[2022-01-24] MEDS: PANTOPRAZOLE 40 MG/10 ML VIAL INJ IV SCH (12:03)
[2022-01-24] MEDS: NICOTINE 21MG/24 HR TOPICAL PATCH TD SCH (12:06)
[2022-01-24] MEDS ORDERED: EPOETIN ALFA-EPBX 10,000 UNIT/1ML VIAL SC ONE (21:00)
== END 2022-01-24 13:35 | DRG 871 ==
LOC: ER 08:54 → EDBD 08:54 → TELE 15:40 → ICU WEST 01-09 06:16
PROVIDERS: ADMIT Registered Nurse; ATTEND Nurse Practitioner Acute Care
PROC: 5A1D70Z Performance of Urinary Filtration, Intermittent, Less than 6 Hours Per Day (ICD-10-PCS; 2022-01-09)
PROC: 5A1D70Z Performance of Urinary Filtration, Intermittent, Less than 6 Hours Per Day (ICD-10-PCS; principal; 2022-01-10)
PROC: 5A1D70Z Performance of Urinary Filtration, Intermittent, Less than 6 Hours Per Day (ICD-10-PCS; 2022-01-12)
PROC: 5A1D70Z Performance of Urinary Filtration, Intermittent, Less than 6 Hours Per Day (ICD-10-PCS; 2022-01-15)
PROC: 5A1D70Z Performance of Urinary Filtration, Intermittent, Less than 6 Hours Per Day (ICD-10-PCS; 2022-01-17)
PROC: 5A1D70Z Performance of Urinary Filtration, Intermittent, Less than 6 Hours Per Day (ICD-10-PCS; 2022-01-19)
PROC: 5A1D70Z Performance of Urinary Filtration, Intermittent, Less than 6 Hours Per Day (ICD-10-PCS; 2022-01-22)
PROC: 5A1D70Z Performance of Urinary Filtration, Intermittent, Less than 6 Hours Per Day (ICD-10-PCS; 2022-01-24)
DX: A41.52 Sepsis due to Pseudomonas (principal); E11.10 Type 2 diabetes mellitus with ketoacidosis without coma; E43 Unspecified severe protein-calorie malnutrition; G92.8 Other toxic encephalopathy; J96.01 Acute respiratory failure with hypoxia; N18.6 End stage renal disease; R65.21 Severe sepsis with septic shock; J15.0 Pneumonia due to Klebsiella pneumoniae; N39.0 Urinary tract infection, site not specified; J44.0 Chronic obstructive pulmonary disease with (acute) lower respiratory infection; Z68.1 Body mass index [BMI] 19.9 or less, adult; F11.20 Opioid dependence, uncomplicated; J98.11 Atelectasis; K56.609 Unspecified intestinal obstruction, unspecified as to partial versus complete obstruction; Z16.24 Resistance to multiple antibiotics; Z20.822 Contact with and (suspected) exposure to COVID-19; D63.1 Anemia in chronic kidney disease; E11.22 Type 2 diabetes mellitus with diabetic chronic kidney disease; E78.5 Hyperlipidemia, unspecified; E87.5 Hyperkalemia; E88.09 Other disorders of plasma-protein metabolism, not elsewhere classified; F17.210 Nicotine dependence, cigarettes, uncomplicated; G89.4 Chronic pain syndrome; I25.10 Atherosclerotic heart disease of native coronary artery without angina pectoris; E11.649 Type 2 diabetes mellitus with hypoglycemia without coma; E55.9 Vitamin D deficiency, unspecified; Z79.01 Long term (current) use of anticoagulants; Z79.4 Long term (current) use of insulin; Z79.899 Other long term (current) drug therapy; Z80.1 Family history of malignant neoplasm of trachea, bronchus and lung; Z82.49 Family history of ischemic heart disease and other diseases of the circulatory system; Z83.3 Family history of diabetes mellitus; Z86.711 Personal history of pulmonary embolism; Z91.14 Patient's other noncompliance with medication regimen; Z91.15 Patient's noncompliance with renal dialysis; Z91.199 Patient's noncompliance with other medical treatment and regimen due to unspecified reason; Z93.3 Colostomy status; Z99.2 Dependence on renal dialysis
CPT/HCPCS: 36415; 36556; 71045; 74176; 74177; 74250; 80048; 80053; 80320; 81001; 82306; 82728; 82962; 83540; 83550; 83605; 83735; 83880; 83970; 84100; 84443; 84484; 85007; 85025; 85027; 85049; 87040; 87070; 87077; 87086; 87088; 87186; 87205; 87426; 87493; 90935; 93005; 94640; 96361; 96365; 96375; 97110; 97116; 97163; 97530; 99291; C9113; G0378; J1642; J1815; J2185; J2250; J2543; J7060; P9047